=== PATIENT | male | born 1945 | race Caucasian/White ===

== ENCOUNTER 2020-01-30 18:59 | Emergency (ER) | payer MEDICARE ==
[~2020-01-30] VITALS: Ht 175.3 cm; Wt 92.1 kg
--- OUTSIDE RECORDS SUMMARY | ~2020-01-30 | XMS | Encounter Summary ---
Demographics + + + | Address | [address] | | | [place] [address] | + + + | Home Phone | | + + + | Preferred Language | Unknown | + + + | Marital Status | | + + + | Yazidi Affiliation | CHR | + + + | Race | White | + + + | Ethnic Group | Not or | + + + Author + + + | Author | [facility] | + + + | Organization | [facility] | + + + | Address | Unknown | + + + | Phone | Unavailable | + + + Support + + +---------+ + | Name | Relationship | Address | Phone | + + +---------+ + | Caroline Elaine | ECON | Unknown | | + + +---------+ + Care Team Providers + +------+ + | Care Skeiner Name | Role | Phone | + +------+ + | Cole Preston MD | PCP | | + +------+ + Reason for Visit AUTH/CERT +--------+--------+ + + + + | Status | Reason | Specialty | Diagnoses / | Referred By | Referred To | | | | | Procedures | Contact | Contact | +--------+--------+ + + + + | Closed | | Adult Acute | | | Kpv 13[address] | | | | Care | | | Adult Onc | | | | | | | [address] [facility] | | | | | | | | | | | | | | Mailcode: | | | | | | | [id number] | | | | | | | [place] | | | | | | | [place], [place] | | | | | | | [address] | | | | | | | Phone: | | | | | | | [phone] | | | | | | | Fax: | | | | | | | [phone] | +--------+--------+ + + + + Encounter Details +--------+ + + + + | Date | Type | Department | Care Team | Description | +--------+ + + + + | 07/22/ | Hospital | Radiology/Imaging | | | | 2010 | Encounter | Lab at [facility] [address] | | | | | [facility] | | | | [facility], | | | | | | [address] | | | | | | [place], [place] | | | | | | [address] | | | | | | [phone] | | | +--------+ + + + + Social History + +-------+ +--------+------+ | Tobacco Use | Types | Packs/Day | Years | Date | | | | | Used | | + +-------+ +--------+------+ | Never Smoker | | | | | + +-------+ +--------+------+ + + +---------+ + | Alcohol Use | Drinks/Week | oz/Week | Comments | + + +---------+ + | No | | | | + + +---------+ + + + + | Sex Assigned at | Date Recorded | | | | + + + | Not on file | | + + + documented as of this encounter Medications at Time of Discharge + + + +---------+ + + | Medication | Sig | Dispensed | Refills | Start | End Date | | | | | | Date | | + + + +---------+ + + | acetaminophen 325 | Take 1 Tab by mouth | 100 Tab | 0 | 07/28/19 | | | mg Oral | every four hours as | | | 11 | | | TabletIndications: | needed. Indications: | | | | | | fever, pain | Fever, Pain | | | | | + + + +---------+ + + | oxyCODONE, | Take 1-3 Tabs by | 60 Tab | 0 | 07/28/19 | | | immediate release, 5 | mouth every three | | | 11 | | | mg Oral Tablet | hours as needed for | | | | | | | severe pain and | | | | | | | breakthrough pain. | | | | | + + + +---------+ + + documented as of this encounter Plan of Treatment Not on filedocumented as of this encounter Procedures + +--------+ + + + | Procedure Name | Priori | Date/Time | Associated Diagnosis | Comments | | | ty | | | | + +--------+ + + + | X-RAY CHEST 2 VIEW | Routin | 07/22/2010 | Carcinoid tumor of | Results for this | | | e | 3:50 PM | small intestine | procedure are in the | | | | PST | Other specified | results section. | | | | | pre-operative | | | | | | examination | | | | | | Mesenteric | | | | | | lymphadenopathy | | + +--------+ + + + documented in this encounter Results X-RAY CHEST 2 VIEW (07/22/2010 3:50 PM PST) + + + + + + | Component | Value | Ref Range | Performed | Pathologist | | | | | At | Signature | + + + + + + | CHEST, 2 | STUDY:CHEST 2 VIEWS | | | | | VIEWS [place] | 07/22/10 15:50:00 | | | | | STEREO | COMPARISON:No prior | | | | | | INDICATION: Carcinoid | | | | | | syndrome, for metastatic | | | | | | disease FINDINGS:The | | | | | | lungs are clear. The | | | | | | heart, hilar and | | | | | | mediastinal contours | | | | | | arenormal. There are | | | | | | no suspect pulmonary | | | | | | nodules, consolidations, | | | | | | orfindings to suggest | | | | | | thoracic metastatic | | | | | | disease. 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 IMPRESSION: | | | | | | No evidence of thoracic | | | | | | metastatic disease. 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 I have | | | | | | personally viewed this | | | | | | procedure/exam and | | | | | | reviewed this report. | | | | | | Author: HALEY | | | | | | JEROMEReviewer: HALEY | | | | | | JEROME STATUS FINAL / . 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
--- OUTSIDE RECORDS SUMMARY | ~2020-01-30 | XMS | Clinical Summary ---
Demographics + + + | Address | [address] | | | [place] [address] | + + + | Home Phone | | + + + | Preferred Language | Unknown | + + + | Marital Status | | + + + | Christianity Affiliation | CHR | + + + | Race | White | + + + | Ethnic Group | Not or | + + + Author + + + | Author | [facility] | + + + | Organization | [facility] | + + + | Address | Unknown | + + + | Phone | Unavailable | + + + Support + + +---------+ + | Name | Relationship | Address | Phone | + + +---------+ + | Caroline Elaine | ECON | Unknown | | + + +---------+ + Care Team Providers + +------+ + | Care Brewing Technician Name | Role | Phone | + +------+ + | Cole Preston MD | PCP | | + +------+ + Source Comments [facility] Allergies + + + + + + | Active Allergy | Reactions | Severity | Noted | Comments | | | | | Date | | + + + + + + | Morphine Sulfate | Anxiety | Medium | 07/23/19 | | | | | | 11 | | + + + + + + Medications + + + +---------+------+------+-------+ | Medication | Sig | Dispensed | Refills | Star | End | Statu | | | | | | t | Date | s | | | | | | Date | | | + + + +---------+------+------+-------+ | acetaminophen 325 | Take 1 Tab by mouth | 100 Tab | 0 | 03/0 | | Activ | | mg Oral | every four hours as | | | 1/20 | | e | | TabletIndications: | needed. Indications: | | | 11 | | | | fever, pain | Fever, Pain | | | | | | + + + +---------+------+------+-------+ | oxyCODONE, | Take 1-3 Tabs by | 60 Tab | 0 | 03/0 | | Activ | | immediate release, 5 | mouth every three | | | 1/20 | | e | | mg Oral Tablet | hours as needed for | | | 11 | | | | | severe pain and | | | | | | | | breakthrough pain. 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 | + + + Family History + + +------+ + | Medical History | Relation | Name | Comments | + + +------+ + | Heart Disease | Father | | | + + +------+ + | Stroke | Father | | | + + +------+ + | Heart Disease | Mother | | | + + +------+ + | Thyroid | Mother | | | + + +------+ + | Diabetes | Sister | | | + + +------+ + + +------+--------+ + | Relation | Name | Status | Comments | + +------+--------+ + | Father | | | | + +------+--------+ + | Mother | | | | + +------+--------+ + | Sister | | | | + +------+--------+ + Social History + +-------+ +--------+------+ | [...] on file | | + + + Last Filed Vital Signs + + + + + | Vital Sign | Reading | Time Taken | Comments | + + + + + | Blood Pressure | 137/88 | 08/12/2010 2:01 PM | | | | | PDT | | + + + + + | Pulse | 72 | 08/12/2010 2:01 PM | | | | | PDT | | + + + + + | Temperature | 36.7 C (98.1 F) | 08/12/2010 2:01 PM | | | | | PDT | | + + + + + | Respiratory Rate | 18 | 08/12/2010 2:01 PM | | | | | PDT | | + + + + + | Oxygen Saturation | 95% | 07/28/2010 6:27 AM | | | | | PST | | + + + + + | Inhaled Oxygen | - | - | | | Concentration | | | | + + + + + | Weight | 95.8 kg (211 lb 4.8 | 08/12/2010 2:01 PM | | | | oz) | PDT | | + + + + + | Height | 175 cm (5' 8.9") | 07/23/2010 9:39 AM | | | | | PST | | + + + + + | Body Mass Index | 31.3 | 07/23/2010 9:39 AM | | | | | PST | | + + + + + Plan of Treatment + + +-------+ + | Health Maintenance | Due Date | Last | Comments | | | | Done | | + + +-------+ + | Pneumococcal | | | | | vaccination (1 of 2 | 0 | | | | - PCV13) | | | | + + +-------+ + | Influenza (Flu) | | | | | vaccination (Season | 0 | | | | Ended) | | | | + + +-------+ + Results Not on filefrom Last 3 Months Insurance + +--------+ +--------+ + +--------+ | Payer | Benefi | Subscriber | Effect | Phone | Address | Type | | | t Plan | ID | sotero | | | | | | / | | Dates | | | | | | Group | | | | | | + +--------+ +--------+ + +--------+ | MEDICARE | MEDICA | [id number] | 08/28/19 | [phone] | [address] | Medica | | | RE A & | | 10-Pre | 1 | 2 | re | | | B | | sent | | [place] | | | | | | | | [id number] | | + +--------+ +--------+ + +--------+ | [facility] | UNITED | [id number] | 08/28/19 | | | PPO | | | | | 10-Pre | | | | | | HEALTH | | sent | | | | | | CARE | | | | | | + +--------+ +--------+ + +--------+ + +--------+ +--------+ + + | Guarantor Name | Accoun | Relation to | Date | Phone | Billing Address | | | t Type | Patient | of | | | | | | | | | | + +--------+ +--------+ + + | Phi Elaine | Person | Self | [birth year] | [address] | | | al/Fam | | 1946 | [phone] | [place] | | | [place] | | | [address] (Home) | [phone] | + +--------+ +--------+ + + Advance Directives + + + + + | Code Status | Date | Date | Comments | | | Activated | Inactivated | | + + + + + | Full Code | 07/23/2010 | 07/28/2010 | | | | 2:14 PM | 2:32 PM | | + + + + +
--- OUTSIDE RECORDS SUMMARY | ~2020-01-30 | XMS | Encounter Summary ---
Demographics + + + | Address | [address] | | | [place] [address] | + + + | Home Phone | | + + + | Preferred Language | Unknown | + + + | Marital Status | | + + + | Hindu Affiliation | CHR | + + + | Race | White | + + + | Ethnic Group | Not or | + + + Author + + + | Author | [facility] | + + + | Organization | [facility] | + + + | Address | Unknown | + + + | Phone | Unavailable | + + + Support + + +---------+ + | Name | Relationship | Address | Phone | + + +---------+ + | Caroline Elaine | ECON | Unknown | | + + +---------+ + Care Team Providers + +------+ + | Care Crew Boss Name | Role | Phone | + +------+ + | Cole Preston MD | PCP | | + +------+ + Encounter Details +--------+ + + + + | Date | Type | Department | Care Team | Description | +--------+ + + + + | 04/06/ | Hospital | Nuclear Medicine | | | | 2009 | Encounter | at [facility] [address] | | | | | [address] | | | | | | [place], | | | | | | [place], | | | | | | [place] [address] | | | | | | [phone] | | | +--------+ + + + [...] | + +--------+ + + + | NM ISOTOPE | Routin | 04/06/2010 | | Results for this | | ADMINISTRATION ONLY | e | 1:07 PM | | procedure are in the | | | | PST | | results section. | + +--------+ + + + documented in this encounter Results NM ISOTOPE ADMINISTRATION (04/06/2010 1:07 PM PST) + + + + + + | Component | Value | Ref Range | Performed | Pathologist | | | | | At | Signature | + + + + + + | NM ISOTOPE | STUDY: Octreotide Scan | | | | | ADMI | 04/06/2010; | | | | | | COMPARISON: None. | | | | | | HISTORY: Carcinoid | | | | | | syndrome; rule out | | | | | | metastatic disease. | | | | | | TECHNIQUE: The patient | | | | | | was injected with 6.6 | | | | | | millicuries of [id number] | | | | | | octreoscan on | | | | | | 04/06/2010. Four hours | | | | | | after injection, | | | | | | anteriorplanar, | | | | | | posterior planar, and | | | | | | SPECT images of the | | | | | | abdomen wereperformed. | | | | | | At 24 hours, anterior | | | | | | and posterior planar | | | | | | images of thehead, neck, | | | | | | chest, abdomen, and | | | | | | pelvis were performed, | | | | | | followed bySPECT imaging | | | | | | of the chest. FINDINGS: | | | | | | On the four hour | | | | | | images, there is very | | | | | | faint radiotraceravidity | | | | | | corresponding to an | | | | | | area of post-surgical | | | | | | change within asegment | | | | | | of small bowel (likely | | | | | | ileum) in the right | | | | | | lower quadrant.Superior | | | | | | to this region, another | | | | | | area of small bowel | | | | | | post-surgicalchange is | | | | | | noted, with no | | | | | | radiotracer avidity. A | | | | | | soft-tissueattenuation | | | | | | mesenteric mass is | | | | | | present within the right | | | | | | lowerabdominal | | | | | | quadrant, which does not | | | | | | exhibit radiotracer | | | | | | avidity.Normal tracer is | | | | | | present within the | | | | | | kidneys, spleen, and | | | | | | liver. Noabnormal | | | | | | uptake is seen within | | | | | | the head, neck, and | | | | | | chest. IMPRESSION: 1. | | | | | | No evidence for | | | | | | metastatic disease. 2. | | | | | | Faint radiotracer | | | | | | avidity within a loop of | | | | | | small bowel in theright | | | | | | lower abdominal | | | | | | quadrant is likely | | | | | | post-surgical in origin | | | | | | asthe patient is status | | | | | | post small bowel | | | | | | resection within the | | | | | | last 2months (03/10/2010 | | | | | | per EPIC notes). I have | | | | | | personally viewed this | | | | | | procedure/exam and | | | | | | reviewed this report. | | | | | | Author: HAYDE WEEKS, | | | | | | MDReviewer: NICOLE Lanier | | | | | | JR. OLIVA M.D. STATUS | | | | | | FINAL / Dr. NICOLE Lanier | | | | | | DONNA FINAL / | | | | | | NICOLE THOMPSON | | | | | | RESULT MODIFIED / | | | | | | NICOLE THOMPSON | | | | | | PENDING FINAL APPROVAL / | | | | | | Dr. HAYDE BEGUM | | | | | | PRELIMINARY - UNSIGNED | | | | | | / Dr. HAYDE WEEKS | | | | + + + [...] + documented in this encounter Visit Diagnoses Not on filedocumented in this encounter"
--- OUTSIDE RECORDS SUMMARY | ~2020-01-30 | XMS | Encounter Summary ---
Demographics + + + | Address | [address] | | | [place] [address] | + + + | Home Phone | | + + + | Preferred Language | Unknown | + + + | Marital Status | | + + + | Judaism Affiliation | CHR | + + + | Race | White | + + + | Ethnic Group | Not or | + + + Author + + + | Author | [facility] | + + + | Organization | [facility] | + + + | Address | Unknown | + + + | Phone | Unavailable | + + + Support + + +---------+ + | Name | Relationship | Address | Phone | + + +---------+ + | Caroline Elaine | ECON | Unknown | | + + +---------+ + Care Team Providers + +------+ + | Care Control Supervisor Name | Role | Phone | + +------+ + | Cole Preston MD | PCP | | + +------+ + Encounter Details +--------+ + + + + | Date | Type | Department | Care Team | Description | +--------+ + + + + | 07/23/ | Results | Surgical Oncology | Lee Lucio, | | | 2010 | Only | at [facility] [address] | [address] | | | | | [facility] | [place], [place] | | | | | Health and Healing, | [address] | | | | | [address] | [phone] | | | | | [place], [place] | | | | | | [address] | | | | | | [phone] | | | +--------+ + + + [...] | + +--------+ + + + | SURGICAL PATHOLOGY | Routin | 07/23/2010 | | Results for this | | | e | | | procedure are in the | | | | | | results section. 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 (Analyte | | | | | | specific reagents are | | | | | | used in many laboratory | | | | | | tests necessary | | | | | | [facility] | | | | | | and generally do not | | | | | | require FDA approval. | | | | | | This testwas developed | | | | | | and its performance | | | | | | characteristics | | | | | | determined by | | | | | | [facility]. It has | | | | | | not been cleared or | | | | | | approved by the [place]. | | | | | | Food and | | | | | | DrugAdministration.) | | | | | | Case seen by:Wilson | | | | | | Michell Lockwood/Surgical | | | | | | Pathology | | | | | | ResidentChristopher L. 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 | | | | | | Gross | | | | | | Description:Received are | | | | | | 2 specimens fresh in | | | | | | containers labeled with | | | | | | the patient'sname | | | | | | (initials LT) and: | | | | | | A: Mesenteric mass: | | | | | | Received is 1 piece of | | | | | | unoriented, red | | | | | | hemorrhagictissue, | | | | | | measuring 5 x 3.2 x 1.5 | | | | | | cm. There appears to | | | | | | be a protrusion thatis | | | | | | assumed to be the mass, | | | | | | measuring 2 x 1.8 x 0.5 | | | | | | cm. The outer | | | | | | surfaceof the entire | | | | | | specimen is inked black. | | | | | | Sectioning of the | | | | | | presumed massreveals a | | | | | | white soft homogeneous | | | | | | cut surface. The rest | | | | | | of the specimenappears | | | | | | to be normal, fibrofatty | | | | | | tissue. | | | | | | Supervisor Blasting | | | | | | sections aresubmitted. | | | | | | On further sectioning, | | | | | | multiple lymph nodes | | | | | | are found in | | | | | | thefibrofatty tissue. | | | | | | Supervisor Blasting sections | | | | | | are submitted. B: | | | | | | Gallbladder: | | | | | | Received is a | | | | | | gallbladder measuring | | | | | | 9.5 x 3 x 0.6 cm.The | | | | | | duct margin is inked | | | | | | black. The gallbladder | | | | | | is opened to reveal a | | | | | | redhemorrhagic mucosa | | | | | | with extremely thin | | | | | | nickerson, measuring 0.1cm | | | | | | thick in someareas. It | | | | | | is filled with 5 cc or | | | | | | less of red-brown | | | | | | material. No lesionsor | | | | | | stones are seen. | | | | | | Supervisor Blasting | | | | | | sections are submitted. | | | | | | Cassette Index:A: | | | | | | Mesenteric mass:A1, | | | | | | massA2-3, lymph | | | | | | nodesB: | | | | | | Gallbladder:B1AC/marine | | | | | | My electronic | | | | | | signature indicates that | | | | | | I have personally | | | | | | reviewed alldiagnostic | | | | | | slides, the gross and/or | | | | | | microscopic portion of | | | | | | thisreport and | | | | | | formulated the final | | | | | | diagnosis. | | | | | | Rendering Diagnostician: | | | | | | Sabino Mayer | | | | | | Corless | | | | | | Michell,Ph.D.PathologistEle | | | | | | ctronically Signed | | | | | | 07/31/2010 3:40PM | | | | + + + + + + + + | Specimen | + + | | + + + + + + + | Performing | Address | City/State/Zipcode | Phone Number | | Organization | | | | + + + + + | [facility] | [address] | [place] [address] | | | PATHOLOGY | [address] | | | + + + + + documented in this encounter Visit Diagnoses Not on filedocumented in this encounter"
--- OUTSIDE RECORDS SUMMARY | ~2020-01-30 | XMS | Encounter Summary ---
Demographics + + + | Address | [address] | | | [place] [address] | + + + | Home Phone | | + + + | Preferred Language | Unknown | + + + | Marital Status | | + + + | Jainism Affiliation | CHR | + + + | Race | White | + + + | Ethnic Group | Not or | + + + Author + + + | Author | [facility] | + + + | Organization | [facility] | + + + | Address | Unknown | + + + | Phone | Unavailable | + + + Support + + +---------+ + | Name | Relationship | Address | Phone | + + +---------+ + | Caroline Elaine | ECON | Unknown | | + + +---------+ + Care Team Providers + +------+ + | Care Cut Press Operator Name | Role | Phone | + +------+ + | Cole Preston MD | PCP | | + +------+ + Reason for Visit + +--------+ + | Reason | Onset | Comments | | | Date | | + +--------+ + | Letter Encounter To | 04/12/ | | | Patient | 2009 | | + +--------+ + Encounter Details +--------+ + + + + | Date | Type | Department | Care Team | Description | +--------+ + + + + | 04/12/ | Telephone | Surgical Oncology | Lee Lucio, | Letter Encounter To | | 2009 | | at [facility] [address] | MD [address] | Patient | | | | [address] [facility] for | [place], [place] | | | | | Health and Healing, | [address] | | | | | [address] | [phone] | | | | | [place], [place] | | | | | | [address] | | | | | | [phone] | | | +--------+ + + + [...] + + documented as of this encounter Miscellaneous Notes Telephone Encounter - Saundra Mariano RN - 04/12/2010 4:[address] Lucio re dental work printed and mailed to patient. Results of octreoscan and CGA reviewed. Patient to return in 07/09 for preop and surgery. Confirmed no aspirin or blood thinners for 1 week p rior to surgery. Time spent 5 minutes. Electronically signed by Saundra Mariano RN at 2009 4:05 PM PSTdocumented in this encounter Plan of Treatment Not on filedocumented as of this encounter Visit Diagnoses Not on filedocumented in this encounter"
--- OUTSIDE RECORDS SUMMARY | ~2020-01-30 | XMS | Encounter Summary ---
Demographics + + + | Address | [address] | | | [place] [address] | + + + | Home Phone | | + + + | Preferred Language | Unknown | + + + | Marital Status | | + + + | Jew Affiliation | CHR | + + + | Race | White | + + + | Ethnic Group | Not or | + + + Author + + + | Author | [facility] | + + + | Organization | [facility] | + + + | Address | Unknown | + + + | Phone | Unavailable | + + + Support + + +---------+ + | Name | Relationship | Address | Phone | + + +---------+ + | Caroline Elaine | ECON | Unknown | | + + +---------+ + Care Team Providers + +------+ + | Care Video Production Assistant Name | Role | Phone | + +------+ + | Cole Preston MD | PCP | | + +------+ + Reason for Referral PROC - Inpatient Surgery (Routine) +--------+--------+ + + + + | Status | Reason | Specialty | Diagnoses / | Referred By | Referred To | | | | | Procedures | Contact | Contact | +--------+--------+ + + + + | Closed | | Surgical | Diagnoses | Pommier, | Sro Surg | | | | Oncology | Carcinoid | MD John | Onc [facility] | | | | | tumor of | [address] | [address] | | | | | small | Ave | Ave Center | | | | | intestine | [facility] [place] | for Health | | | | | Other | [address] | and Healing, | | | | | specified | Phone: | Building [address] | | | | | pre-operativ | [phone] | [facility] [place] | | | | | e | Fax: | [phone] | | | | | examination | [phone] | Phone: | | | | | Procedures | | [phone] | | | | | REQUEST TO | | Fax: | | | | | SURGERY | | [phone] | | | | | HAND TAPPER | | | | | | | OR RESECT | | | | | | | SMALL | | | | | | | INTEST,SINGL | | | | | | | RESEC/ANAS | | | | | | | OR EXCISION | | | | | | | OF | | | | | | | MESENTERY | | | | | | | LESION OR | | | | | | | REMOVAL | | | | | | | GALLBLADDER | | | +--------+--------+ + + + + Diagnostic Testing (Routine) +--------+--------+ + + + + | Status | Reason | Specialty | Diagnoses / | Referred By | Referred To | | | | | Procedures | Contact | Contact | +--------+--------+ + + + + | Closed | | Radiology | Diagnoses | Pommier, | Rad Nuc Med | | | | | Carcinoid | MD John | [address] | | | | | tumor of | [address] | Pav[address] | | | | | small | Ave | [address] | | | | | intestine | [place], [place] | [place], | | | | | Procedures | [address] | Basement | | | | | NM TUMOR | Phone: | [place], [place] | | | | | LOCALIZATION | [phone] | [address] | | | | | WHOLE BODY | Fax: | Phone: | | | | | MULTIPLE | [phone] | [phone] | | | | | DAYS | | Fax: | | | | | | | [phone] | +--------+--------+ + + + + Diagnostic Testing (Routine) +--------+--------+ + + + + | Status | Reason | Specialty | Diagnoses / | Referred By | Referred To | | | | | Procedures | Contact | Contact | +--------+--------+ + + + + | Closed | | Radiology | Diagnoses | Pomcornell, | Rad Nuc Med | | | | | Carcinoid | MD John | [address] | | | | | tumor of | [address] | [address] | | | | | small | Ave | [address] | | | | | intestine | [place], [place] | [place], | | | | | Procedures | [address] | Basement | | | | | NM TUMOR | Phone: | [place], [place] | | | | | LOCALIZATION | [phone] | [address] | | | | | SPECT CHEST | Fax: | Phone: | | | | | | [phone] | [phone] | | | | | | | Fax: | | | | | | | [phone] | +--------+--------+ + + + + Diagnostic Testing (Routine) +--------+--------+ + + + + | Status | Reason | Specialty | Diagnoses / | Referred By | Referred To | | | | | Procedures | Contact | Contact | +--------+--------+ + + + + | Closed | | Radiology | Diagnoses | Pommier, | Rad Nuc Med | | | | | Carcinoid | MD John | [facility] [address] | | | | | tumor of | [address] | [address] | | | | | small | Ave | [address] | | | | | intestine | [place], [place] | [place], | | | | | Procedures | [address] | Basement | | | | | NM TUMOR | Phone: | [place], [place] | | | | | LOCALIZATION | [phone] | [address] | | | | | SPECT | Fax: | Phone: | | | | | ABDOMEN | [phone] | [phone] | | | | | | | Fax: | | | | | | | [phone] | +--------+--------+ + + + + Reason for Visit Consultation (Routine) +--------+--------+ + + + + | Status | Reason | Specialty | Diagnoses / | Referred By | Referred To | | | | | Procedures | Contact | Contact | +--------+--------+ + + + + | Closed | | Surgical | Diagnoses | Cassidy, | Khadijah, | | | | Oncology | carcinoid | Vivek Hitchcock MD | MD John | | | | | of small | [place] | [address] | | | | | bowel | SURGICAL | Ave | | | | | | [facility] | [place], [place] | | | | | | [address] | [address] | | | | | | AVE | Phone: | | | | | | [place], | [phone] | | | | | | [place] [address] | Fax: | | | | | | Phone: | [phone] | | | | | | [phone] | | | | | | | Fax: | | | | | | | [phone] | | +--------+--------+ + + + + Encounter Details +--------+---------+ + + + | Date | Type | Department | Care Team | Description | +--------+---------+ + + + | 03/29/ | Office | Surgical Oncology | John Lucio, | 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 | Visit | at [facility] [address] | MD [address] | small intestine | | | | Ave Center for | [place], [place] | (Primary Dx); Other | | | | Health and Healing, | [address] | specified | | | | Building [address] | [phone] | pre-operative | | | | [place], [place] | | examination | | | | [address] | | | | | | [phone] | | | +--------+---------+ + + + Social History + +-------+ [...] + + documented as of this encounter Last Filed Vital Signs + + + + + | Vital Sign | Reading | Time Taken | Comments | + + + + + | Blood Pressure | 126/73 | 03/29/2010 11:06 AM | | | | | PDT | | + + + + + | Pulse | 72 | 03/29/2010 11:06 AM | | | | | PDT | | + + + + + | Temperature | 36.8 C (98.2 F) | 03/29/2010 11:06 AM | | | | | PDT | | + + + + + | Respiratory Rate | 17 | 03/29/2010 11:06 AM | | | | | PDT | | + + + + + | Oxygen Saturation | - | - | | + + + + + | Inhaled Oxygen | - | - | | | Concentration | | | | + + + + + | Weight | 95 kg (209 lb 6.4 | 03/29/2010 11:06 AM | | | | oz) | PDT | | + + + + + | Height | 182.9 cm (6') | 03/29/2010 11:06 AM | | | | | PDT | | + + + + + | Body Mass Index | 28.4 | 03/29/2010 11:06 AM | | | | | PDT | | + + + + + documented in this encounter Patient Instructions Patient Instructions Saundra Mariano RN - 03/29/2010 12:48 PM PDTNO ASPIRIN OR BLOOD THINN ERS FOR 1 WEEK PRIOR TO SURGERY.Registration Locations (please check in at one of the follow ing registration desks prior to surgery) For surgeries scheduled [place] take place [place] the [facility]: Surgeries scheduled in the [facility] ( [facility]): registration is located on the 4th floor of [facility] (Day Surgery). Surgeries scheduled in the [facility]: registration is located on the 9th floor. Surgeries scheduled in [facility]: registration is located on the 6th floor. Surgeries scheduled in the [facility]: registration is located i n the [facility] on the first floor. For surgeries scheduled to take place at the [facility]: registration is l ocated on the 4th floor (Surgery Center). Important Information Due to the increased prevalence of pests in our community, we are asking patients to partne r with us to keep our hospital clean. If you have noticed bugs or other pests in your home, on your belongings or on your body, please contact your doctor's office prior to your admis osvaldo. For your safety and protection, please limit what you bring to the hospital. All valuables should be left at home. This includes pillows, blankets, clothing, purses, wallets, money an d jewelry. Patients may not bring personal electronics into the hospital, including hairdry ers, electric angel, radios and CD players. If you use specialized medical equipment at [facility], please check with your provider before bringing it with you into the hospital. Registration Process for all Admissions/Surgeries 1. Please bring your insurance card(s) with you and be prepared to pay any co-payment, co-i nsurance or deposit that may be required. 2. Once you arrive at the registration desk, you will be interviewed by a Patient Access Se rvice Specialist (PAS). Demographics will be verified (example: name, date of , Social Security Number, address, insurance). 3. You will be asked to sign some paperwork: Terms and Conditions of Service, Notice of Trisha vacy Practices Acknowledgement and Genetic Testing Opt Out. You will be given some paperwork: copies of any forms signed by you, Patient Rights, Respon sibilities and Safety, Understanding Advance Directives, and Smoking Cessation Brochure.Elec tronically signed by Saundra Mariano RN at 03/29/2010 12:48 PM PDT documented in this encounter Progress Notes John Lucio MD - 03/29/2010 1:44 PM PDTFormatting of this note might be different fro m the original. CARCINOID OUTPATIENT CONSULTATION 03/29/2010 Consulting Physician: JOHN LUCIO MD Referring Physician: Vivek Benjamin MD HPI: Phi Elaine is a 64 y.o. male is here for a Carcinoid Clinic consultation. He pr esented with abdominal pain in [facility] in early February. Prior to that, he did not have in termittent abdominal pain, flushing, or diarrhea. He had once complained a red nose and was diagnosed with rosacea, which interestingly enough is a common misdiagnosis of carcinoid flu shing. CT scan showed a mesenteric mass in the RLQ. He was explored by Dr. Vivek Benjamin in [facility] [place] on 03/10/2010. The findings were a small bowel tumor in the terminal ileum, con sistent with a small bowel carcinoid and desmoplastic reaction around the mesenteric mass. T he mass proved larger than thought based on the CT scan. Dr. Benjamin was quite concerned about the encroachment of the mass to the SMA and SMV and elected not to resect it. He did do a s mall bowel resection. Apparently, no liver metastases were seen. The gallbladder was not rem hayde. He did not have any known carcinoid crises with the anesthetic or the post operative p eriod. He also denies any problems with asthma, arthritis components of carcinoid syndrome. He also denies SOB, edema, etc, suggestive of carcinoid heart disease. He improved after the operation. 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 He has since been referred here for further evaluation and treatment. PAST MEDICAL HISTORY: Patient denies history of diabetes, asthma, hypertension, or other di seases. Past Medical History Diagnosis Date History of colonoscopy 06/30/09, 2000 Diverticulosis 02/2001 Blood transfusion, without reported diagnosis PAST SURGICAL HISTORY: Patient denies. Past Surgical History Procedure Date Cataract removal 1995, 1997 Dr. Bazzi, Dr. Benson Humphrey Repair facial bone 01/1997 Dr. Meek Carter Appendectomy Tonsil and adenoidectomy Vasectomy MEDICATIONS: denies Current outpatient prescriptions Medication Sig Hydrocodone-Acetaminophen 5-500 mg Oral Capsule Take 2 Caps by mouth once daily. Not to exceed 8 capsules per any 24 hour period. (Not to exceed 4000 mg of acetaminophen from all products per 24 hour period.) SOCIAL HISTORY: Tobacco use: no Alcohol use: no Drug use: denies /single: Employment: Retired telephone engineer. FAMILY HISTORY: No Family History of MEN I or carcinoid. Family History Problem Relation Age of Onset Diabetes Sister Heart Mother Heart Father Stroke Father Thyroid Mother REVIEW OF SYSTEMS: A 14-point review of systems intake form was filled out by the patient a nd reviewed with the patient. ROS was significant for: ROS was negative for all other symptoms: Review of Systems: General: No constitutional symptoms of fevers, fatigue, chills, weight loss or sweats. Eyes: No changes in vision loss, double vision, eye pain, eye irritation, discharge, blurr ed vision or light sensitivity. Ears, Nose and Throat: No hearing loss, ringing in the ears, ear discharge, earache, noseb nito, nasal congestion, difficulty swallowing, hoarseness or sore throat. Respiratory: No shortness of breath, coughing up blood, excessive sputum, cough, chest dis comfort or wheezing. Musculoskeletal: No joint pain, swelling, stiffness, back pain, arthritis, muscle aches, m uscle cramps or loss of strength. Cardiovascular: No chest pain, skipping beats, lightheadedness, difficulty breathing uprig ht or lying down, fatigue, near fainting or fainting, palpitations, weight gain, edema, leg cramps. Gastrointestinal: No loss of appetite, excessive appetite, indigestion, vomiting, nausea, constipation, gas, abdominal pain, hemorrhoids, diarrhea, bloating, bloody stools or dark ta rry stools. Genitourinary: No urinary frequency, blood in urine, difficulty in urination, discharge, p ainful urination, incontinence, urinary urgency, genital sores. Neurologic: No unusual headaches, inability to speak, poor balance, numbness, tingling, tr emors, memory loss, disturbances in coordination or sensation of room spinning. Skin: No itching, rash, poor wound healing, night sweats, changes in skin color, dryness, flushing or suspicious lesions. Psychological: No abnormal anxiety, depression, thoughts of suicide or hallucinations. Heme/Lymphatic: No skin discoloration, abnormal bleeding or enlarged lymph nodes. Endrocrine: No heat intolerance, cold intolerance, excessive hunger or excessive thirst. Allergic: No seasonal allergies, hives or rash, persistent infections or HIV exposure. OBJECTIVE Visit Vitals Item Reading BP 126/73 Pulse 72 Temp (Src) 36.8 C (98.2 F) (Oral) RR 17 Ht 1.829 m (6') Wt 94.983 kg (209 lb 6.4 oz) BMI 28.40 kg/(m^2) PHYSICAL EXAM: General: He is a well-developed, well-nourished female in no apparent distress, alert and oriented x3. The patient had no flushing during interview or examination. Head and neck: Normocephalic, atraumatic. Sclerae are anicteric. Neck is soft and supple. No masses. No cervical or clavicular adenopathy. Chest/Lungs: Clear to A and P without carcinoid wheezing and 2 cm diaphragmatic excursions bilaterally. Heart: RRR without S3 or murmur suggestive of carcinoid heart disease. Abdomen: Midline incision, essentially from sub-xiphoid to Soft, nontender, and nondistende d. No visible masses. Liver percusses 6 cm in the R MCL. The liver is not palpable. The sple en is not palpable. There is no Sr. Sylvia Nadeem's nodule. There are no palpable abdominal ma sses. There is no inguinal lymphadenopathy. Extremities: No cyanosis, clubbing, or edema. Skin:No rash or pellagra. Pathology: Report was reviewed. The results are as described above. CT scan: Was not here for review. It is still en route. The report indicates a mesenteric m ass measuring 40.5 cm in the RLQ at the level of the iliac crest, just to the right of midli ne.. It does not mention encasement or concerning proximity to the SMA or SMV. 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 There does not appear to be any liver metastases or carcinoid synd carroll. I spent 1 hour discussing neuroendocrine tumors/carcinoid with the patient and his . I explained that many patients present with metastatic disease, CT scans etc to find the prima ry do not find it, but instead find large mesenteric adenopathy, frequently in the root of t he mesentery, encasing the SMA and SMV. The primary is usually found only at operation, jarek sandoval finds it about 80% of the time and they are quite small. He is unusual in that he does not appear to have liver metastases. Therefore, he appears to still be "in the running" for having a curative R0 resection. If t hat cannot be done, he should have an attempt at resecting as much of the disease as possibl e to prevent subsequent encasement of the SMA and SMV, resulting in intestinal angina, ische inna bowel or bowel obstruction. This is complicated surgery. It requires a fairly intimate k nowledge of the anatomy of the mesenteric vessels. Specifically, there are separate sub-bran ches arising trunks of these vessels; one of which is ileal and the other of which is jejuna l. One of the two may be taken to achieve the resection, but not both. Further bowel resecti on may or may not be required in conjunction with the mesenteric resection. Some patients wi ll require a second look laparotomy at 24 hours to evaluate the viability of the bowel after the resection. However, the recommendation for this could be would depend upon whether he has metastatic d isease to the liver, or elsewhere. Then, I would focus more on liver resection than mesenter ic resection, unless he could also have a complete resection of all liver metastases. An oct reoscan will help determine his extent of disease. It will also help determine his eventual eligibility for treatment with radiolabelled somatostatin analogs. For him to qualify for at, he has to have uptake on an octreoscan. I will also obtain a serum chromogranin A level. Chromogranin A is a better marker to follow than 5HIAA as it correlates with the volume of disease present in the patient, it gives a picture of the behavior of the tumor over the pre vious several months rather than just the previous 24 hours. Also, it's serum levels rise in advance of radiologic evidence of progression in more than 50% of cases. I will obtain a l evel now, before his resection, and then check it again after the resection. The patient lalit uld have an octreoscan to evaluate the entire body for presence of metastatic disease as wel l as the possibility of finding primary tumors. Lastly, I would also do a cholecystectomy du ring any abdominal operation in a carcinoid patient because long-term somatostatin analogue therapy has a side effect of causing gallstones that may become symptomatic, and he may even tually need that therapy. However, I would not operate right now. His abdomen will be forming adhesions for the next month or so, and the risk of enterotomy on trying to get back in his abdomen will be high. T hat, with the possibility of ischemic bowel after the mesenteric resection, is a bad combina tion for leaks. Therefore, I would wait about 3 months before operating, which is quite safe with carcinoid. Plan: Serum Chromogranin A level today. Octreoscan. I gave him a tentative date for surgery of July 23, with a preoperative visit the day b ef. The patient was given a carcinoid CD-ROM that we have prepared for carcinoid patient educat ion. JOHN LUCIO MD corporate compliance manager Division of Surgical Oncology [id number], [place] [address] documented in this en counter Procedure Notes Other, Faculty - 03/05/2010 12:00 AM PDTAssociated Order(s): RADIOLOGY documented in this encou nter Miscellaneous Notes Scan - Other, Faculty - 03/29/2010 12:51 PM PDT can - Unknown - 010 12:00 AM PDT Scan - Unknown - 03/29/2010 12:00 AM PDT Scan - Other, Faculty - 03/25/2010 12:00 AM PDT can - Other, Faculty - 03/10/2010 12:00 AM PDT can - Other, Faculty - 03/10/2010 12:00 AM PDTAssociated Order(s): PATHOLOGY can - Other, Faculty - 03/08/2010 12:00 AM PDT can - Other, Faculty - 03/05/2010 12:00 AM PDT documented in this encou nter Plan of Treatment Not on filedocumented as of this encounter Procedures + +--------+ + + + | Procedure Name | Priori | Date/Time | Associated Diagnosis | Comments | | | ty | | | | + +--------+ + + + | PATHOLOGY | | 03/10/2010 | | Results for this | | | | 12:00 AM | | procedure are in the | | | | PDT | | results section. | + +--------+ + + + | RADIOLOGY | | 03/05/2010 | | Results for this | | | | 12:00 AM | | procedure are in the | | | | PDT | | results section. | + +--------+ + + + documented in this encounter Results NM TUMOR LOCALIZATION SPECT CHEST (04/07/2010 9:58 AM PST) + + + + + + | Component | Value | Ref Range | Performed | Pathologist | | | | | At | Signature | + + + + + + | NM TUMOR | STUDY: Octreotide Scan | | | | | LOCAL SPECT | 04/06/2010; | | | | | CHEST | COMPARISON: None. | | | | | | HISTORY: Carcinoid | | | | | | syndrome; rule out | | | | | | metastatic disease. | | | | | | TECHNIQUE: The patient | | | | | | was injected with 6.6 | | | | | | millicuries of | | | | | | octreoscan [...] WEEKS, | | | | | | Shabnamiewer: NICOLE Lanier | | | | | | JR. OLIVA M.D. STATUS | | | | | | FINAL / Dr. NICOLE Lanier | | | | | | [facility] | | | | + + + + + + + + | Specimen | + + | | + + + +---------+ + + | Performing | Address | City/State/Zipcode | Phone Number | | Organization | | | | + +---------+ + + | [facility] DEPARTMENT OF | | | | | RADIOLOGY | | | | + +---------+ + + NM TUMOR LOCALIZATION SPECT ABDOMEN (04/06/2010 2:27 PM PST) + + + + + + | Component | Value | Ref Range | Performed | Pathologist | | | | | At | Signature | + + + + + + | NM TUMOR | STUDY: Octreotide Scan | | | | | LOCAL SPECT | 04/06/2010; | | | | | ABDOMEN | COMPARISON: None. | | | | | | HISTORY: Carcinoid | | | | | | syndrome; rule out | | | | | | metastatic disease. | | | | | | TECHNIQUE: The patient | | | | | | was injected with 6.6 | | | | | | millicuries of [id number] | | | | | | octreoscan [...] | | | | | | per [facility] notes). I have | | | | [...] | | | + +---------+ + + NM TUMOR LOCALIZATION WHOLE BODY MULTIPLE DAYS (04/06/2010 1:07 PM PST) + + + + + + | Component | Value | Ref Range | Performed | Pathologist | | | | | At | Signature | + + + + + + | NM TUMOR | STUDY: Octreotide Scan | | | | | LOCALIZATIO | 04/06/2010; | | | | | N WHOLE | COMPARISON: None. | | | | | BODY | HISTORY: Carcinoid | | | | | MULTIPLE | syndrome; rule out | | | | | DAYS | metastatic disease. | | | | | | TECHNIQUE: The patient | | | | | | was injected with 6.6 | | | | | | millicuries of | | | | | | octreoscan [...] | | | | | | per [facility] notes). I have | | | | [...] | | | + +---------+ + + CHROMOGRANIN A, SERUM (03/29/2010 1:16 PM PDT) + + + + + + | Component | Value | Ref Range | Performed | Pathologist | | | | | At | Signature | + + + + + + | CHROMOGRANI | < 5Comment: TEST | (<51) ng/mL | | | | N A | INFORMATION: | | | | | | Chromogranin AThis | | | | | | assay is performed using | | | | | | the [employer] | | | | | | DiagnosticsChromogranin | | | | | | A EIA. Results obtained | | | | | | with different | | | | | | assaymethods or kits | | | | | | cannot be used | | | | | | interchangeably. This | | | | | | test uses a kit | | | | | | designated by the | | | | | | screening technician as | | | | | | "forresearch use, not | | | | | | for clinical use." The | | | | | | performancecharacteristi | | | | | | cs of this test were | | | | | | validated by | | | | | | [employer] | | | | | | The U.S. Food and Drug | | | | | | Administration(FDA) has | | | | | | not approved or cleared | | | | | | this test. The | | | | | | resultsare not intended | | | | | | to be used as the sole | | | | | | means for | | | | | | clinicaldiagnosis or | | | | | | patient management | | | | | | decisions. [facility] | | | | | | isauthorized under | | | | | | Clinical Laboratory | | | | | | Improvement | | | | | | Amendments(CLIA) and by | | | | | | all states to perform | | | | | | high-complexity | | | | | | testing.Performed by | | | | | | [facility], | | | | | | | | | | | | [address] | | | | | | [place] [address] | | | | | | [phone] | | | | | | | | | | | | [email or web address], | | | | | | Katherine L. Wilkins, MD - | | | | | | Lab. Director | | | | + + + + + + + + | Specimen | + + | Blood - Blood | + + + + + + + | Performing | Address | City/State/Zipcode | Phone Number | | Organization | | | | + + + + + | [facility] | [address] | [place], [place] | | | [facility] | | [address] | | + + + + + PATHOLOGY (03/10/2010 12:00 AM PDT) + + + | Narrative | Performed At | + + + | | | + + + + + | Procedure Note | + + | Sanam Owens - 03/10/2010 12:00 AM PDT | | | + + RADIOLOGY (03/05/2010 12:00 AM PDT) + + + | Narrative | Performed At | + + + | | | + + + + + | Procedure Note | + + | Sanam Owens - 03/05/2010 12:00 AM PDT | | | + + documented in this encounter Visit Diagnoses + + | Diagnosis | + + | 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
--- OUTSIDE RECORDS SUMMARY | ~2020-01-30 | XMS | Encounter Summary ---
Demographics + + + | Address | [address] | | | [place] [address] | + + + | Home Phone | | + + + | Preferred Language | Unknown | + + + | Marital Status | | + + + | Judaism Affiliation | CHR | + + + | Race | White | + + + | Ethnic Group | Not or | + + + Author + + + | Author | [facility] | + + + | Organization | [facility] | + + + | Address | Unknown | + + + | Phone | Unavailable | + + + Support + + +---------+ + | Name | Relationship | Address | Phone | + + +---------+ + | Caroline Elaine | ECON | Unknown | | + + +---------+ + Care Team Providers + +------+ + | Care Assembly Line Brazer Name | Role | Phone | + +------+ + PCP | Unavailable | + +------+ + Encounter Details +--------+ + + + + | Date | Type | Department | Care Team | Description | +--------+ + + + + | 03/10/ | Hospital | LAB SURGICAL | | | | 2009 | Encounter | PATHOLOGY [address] | | | | [address] | | | | | | [place], [place] | | | | | | [address] | | | +--------+ + + + + Social History + +-------+ +--------+------+ | Tobacco Use | Types | Packs/Day | Years | Date | | | | | Used | | + +-------+ +--------+------+ | Never Assessed | | | | | + +-------+ +--------+------+ + + + | Sex Assigned at [...] + | SURGICAL PATHOLOGY | Routin | 03/10/2010 | | Results for this | | | e | | | procedure are in the | | | | | | results section. | + +--------+ + + + documented in this encounter Results SURGICAL PATHOLOGY (03/10/2010) + + + + + + | Component | Value | Ref Range | Performed | Pathologist | | | | | At | Signature | + + + + + + | SURGICAL | SOURCE OF SPECIMEN:A | | [facility] | | | PATHOLOGY | Small bowel, Ileum, | | DEPARTMENT | | | | Appendix, | | OF | | | | Materials | | PATHOLOGY | | | | Received:Referring | | | | | | Institution: [facility] | | | | | | [facility], | | | | | | [facility] | | | | | | Accession Number: | | | | | | [id number] | | | | | | Collection Date: | | | | | | 03/10/10Sublabel | | | | | | H&E | | | | | | IHC-Special | | | | | | Unstained | | | | | | BlocksA, B, C, | | | | | | 12 10 | | | | | | | | | | | | 0 | | | | | | 0 An | | | | | | additional [place] | | | | | | Pathology report: | | | | | | accession [id number] | | | | | | dated:06/30/09. | | | | | | Final Pathologic | | | | | | Diagnosis:Colon polyps | | | | | | (Brett Toribio | | | | | | Pathology, [id number], | | | | | | 06/30/09):Rectum, | | | | | | excision (sublabeled A): | | | | | | - Hyperplastic | | | | | | polypColon, 55 cm, | | | | | | biopsy (sublabeled B): | | | | | | - Tubulovillous | | | | | | adenoma, excisedHepatic | | | | | | flexure, biopsy | | | | | | (sublabeled C): - | | | | | | Fragments of serrated | | | | | | adenoma Small | | | | | | bowel, ileum, and | | | | | | appendix (Brett Toribio | | | | | | Pathology, | | | | | | [id number],03/10/10):Smal | | | | | | l bowel mesentery | | | | | | adipose tissue, biopsy | | | | | | (sublabeled A1-A2): | | | | | | - 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 | | | | | | carcinomaSegment of | | | | | | ileum, segmental | | | | | | resection (sublabeled | | | | | | B1-B6): - Well | | | | | | differentiated | | | | | | neuroendocrine | | | | | | carcinoma, 2 cm - | | | | | | Tumor invades through | | | | | | the small bowel to the | | | | | | serosal surface - | | | | | | Proximal and distal | | | | | | resection margins | | | | | | negative for tumor | | | | | | - Angiolymphatic | | | | | | invasion identified | | | | | | - AJCC pathologic | | | | | | stage (7th edition): | | | | | | pT4, pNx, F2Ttijoprw, | | | | | | appendectomy (sublabeled | | | | | | C): - Appendix | | | | | | with no diagnostic | | | | | | abnormality | | | | | | Comment: Thank you for | | | | | | the opportunity to | | | | | | review these cases. We | | | | | | agreewith the original | | | | | | pathologic diagnoses. | | | | | | The resection of ileum | | | | | | reveals awell | | | | | | differentiated | | | | | | neuroendocrine carcinoma | | | | | | with invasion through | | | | | | thesmall bowel into the | | | | | | serosa. Per the | | | | | | outside report, a | | | | | | distant mesentericlesion | | | | | | is identified, and | | | | | | histologically consists | | | | | | of a nodule of | | | | | | welldifferentiated | | | | | | neuroendocrine | | | | | | carcinoma, thus | | | | | | designated as M1. | | | | | | Case seen by:[facility] | | | | | | Michell Gomez, | | | | | | Ph.D./Surgical Pathology | | | | | | Letty Miller, | | | | | | M.D., PathologistThese | | | | | | slides will be returned | | | | | | at a later | | | | | | date. 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 My | | | | | | electronic signature | | | | | | indicates that I have | | | | | | personally reviewed | | | | | | alldiagnostic slides, | | | | | | the gross and/or | | | | | | microscopic portion of | | | | | | thisreport and | | | | | | formulated the final | | | | | | diagnosis. | | | | | | Rendering Diagnostician: | | | | | | Melania Miller | | | | | | Levi | | | | | | paris Castellano 03/31/2010 | | | | + + + + + + + + | Specimen | + + | | + + + + + + + | Performing | Address | City/State/Zipcode | Phone Number | | Organization | | | | + + + + + | [facility] | [address] | [place] [address] | | | PATHOLOGY | [address] | | | + + + + + documented in this encounter Visit Diagnoses Not on filedocumented in this encounter"
--- OUTSIDE RECORDS SUMMARY | ~2020-01-30 | XMS | Encounter Summary ---
Demographics + + + | Address | [address] | | | [place] [address] | + + + | Home Phone | | + + + | Preferred Language | Unknown | + + + | Marital Status | | + + + | Scientology Affiliation | CHR | + + + | Race | White | + + + | Ethnic Group | Not or | + + + Author + + + | Author | [facility] | + + + | Organization | [facility] | + + + | Address | Unknown | + + + | Phone | Unavailable | + + + Support + + +---------+ + | Name | Relationship | Address | Phone | + + +---------+ + | Caroline Elaine | ECON | Unknown | | + + +---------+ + Care Team Providers + +------+ + | Care Boat Buffer Plastic Name | Role | Phone | + +------+ + | Cole Preston MD | PCP | | + +------+ + Encounter Details +--------+------+ + + + | Date | Type | Department | Care Team | Description | +--------+------+ + + + | 03/29/ | Lab | Laboratory at [facility] | | 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 | | [address] | | small intestine | | | | [place] [facility] | | | | | | and Healing, | | | | | | [address] | | | | | | [place], [place] | | | | | | [address] | | | | | | [phone] | | | +--------+------+ + + + Social History + +-------+ [...] | + +--------+ + + + | CHROMOGRANIN A, | Routin | 03/29/2010 | Carcinoid tumor of | Results for this | | SERUM | e | 1:16 PM | small intestine | procedure are in the | | | | PDT | | results section. | + +--------+ + + + documented in this encounter Results CHROMOGRANIN A, SERUM (03/29/2010 1:16 PM PDT) [...] the | | | | | | timekeeping supervisor as | | | | | | "forresearch use, not | | | | | | for clinical use." The | | | | | | performancecharacteristi | | | | | | cs of this test were | | | | | | validated by | | | | | | [employer] | | | | | | [...] by | | | | | | [facility], | | | | | | | | | | | | [address] | | | | | | [place] [address] | | | | | | [phone] | | | | | | | | | | | | [email or web address].[employer], | | | | | | Katherine Jones MD - | | | | | | Lab. 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
--- OUTSIDE RECORDS SUMMARY | ~2020-01-30 | XMS | Encounter Summary ---
Demographics + + + | Address | [address] | | | [place] [address] | + + + | Home Phone | | + + + | Preferred Language | Unknown | + + + | Marital Status | | + + + | Congregational Affiliation | CHR | + + + [...] Team Providers + +------+ + | Care Rags Laborer Name | Role | Phone | + +------+ + | Cole Preston MD | PCP | | + +------+ + Encounter Details +--------+ + + + + | Date | Type | Department | Care Team | Description | +--------+ + + + + | 04/06/ | Hospital | Nuclear Medicine | | | | 2009 | Encounter | at [facility] [address] | | | | | [address] | | | | | | [place], | | | | | | [place], | | | | | | [place] [address] | | | | | | [phone] | | | +--------+ + + + [...] + +--------+ + + + | NM TUMOR | Routin | 04/06/2010 | Carcinoid tumor of | Results for this | | LOCALIZATION WHOLE | e | 1:07 PM | small intestine | procedure are in the | | BODY MULTIPLE DAYS | | PST | | results section. | + +--------+ + + + documented in this encounter Results NM TUMOR LOCALIZATION WHOLE BODY MULTIPLE DAYS [...] system | + + documented in this encounter"
--- OUTSIDE RECORDS SUMMARY | ~2020-01-30 | XMS | Encounter Summary ---
Demographics + + + | Address | [address] | | | [place] [address] | + + + | Home Phone | | + + + | Preferred Language | Unknown | + + + | Marital Status | | + + + | Yarsani Affiliation | CHR | + + + | Race | White | + + + | Ethnic Group | Not or | + + + Author + + + | Author | [facility] | + + + | Organization | [facility] | + + + | Address | Unknown | + + + | Phone | Unavailable | + + + Support + + +---------+ + | Name | Relationship | Address | Phone | + + +---------+ + | Caroline Elaine | ECON | Unknown | | + + +---------+ + Care Team Providers + +------+ + | Care Barrel Bung Remover And Dumper Name | Role | Phone | + +------+ + | Cole Preston MD | PCP | | + +------+ + Encounter Details +--------+ + + + + | Date | Type | Department | Care Team | Description | +--------+ + + + + | 04/07/ | Hospital | Nuclear Medicine | | | | 2009 | Encounter | at [facility] [address] | | | | | [address] | | | | | | [place], | | | | | | [place], | | | | | | [place] [address] | | | | | | [phone] | | | +--------+ + + + [...] + | NM TUMOR | Routin | 04/07/2010 | Carcinoid tumor of | Results for this | | LOCALIZATION SPECT | e | 9:58 AM | small intestine | procedure are in the | | CHEST | | PST | | results section. 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
--- OUTSIDE RECORDS SUMMARY | ~2020-01-30 | XMS | Encounter Summary ---
Demographics + + + | Address | [address] | | | [place] [address] | + + + | Home Phone | | + + + | Preferred Language | Unknown | + + + | Marital Status | | + + + | Adventist Affiliation | CHR | + + + | Race | White | + + + | Ethnic Group | Not or | + + + Author + + + | Author | [facility] | + + + | Organization | [facility] | + + + | Address | Unknown | + + + | Phone | Unavailable | + + + Support + + +---------+ + | Name | Relationship | Address | Phone | + + +---------+ + | Caroline Elaine | ECON | Unknown | | + + +---------+ + Care Team Providers + +------+ + | Care System Dispatcher Name | Role | Phone | + +------+ + | Cole Preston MD | PCP | | + +------+ + Reason for Visit +--------+ + | Reason | Comments | +--------+ + | Preop | | +--------+ + AUTH/CERT +--------+--------+ + + + + | [...] | | | | | | [address] | | | | | | | | | | | | | | Mailcode: | | | | | | | [id number] | | | | | | | [place] | | | | | | | [facility] [place] | | | | | | | [address] | | | | | | | Phone: | | | | | | | [phone] | | | | | | | Fax: | | | | | | | [phone] | +--------+--------+ + + + + Encounter Details +--------+---------+ + + + | Date | Type | Department | Care Team | Description | +--------+---------+ + + + | 07/22/ | Office | Preoperative | Tamika Olmstead | Preop examination; | | 2010 | Visit | Medicine Clinic at | T, TALENT ACQUISITION ASSISTANT-C,MPH | Diabetes mellitus | | | | [facility] 4th Floor [address] | | screening; Other | | | | [address] | | specified | | | | Mailcode: [id number] | | pre-operative | | | | [facility] | | examination | | | | and Healing, | | | | | | Building 1,4th Floor | | | | | | [facility] [place] | | | | | | [address] | | | | | | [phone] | | | +--------+---------+ + + + [...] + + + | Blood Pressure | 142/89 | 07/22/2010 2:44 PM | | | | | PST | | + + + + + | Pulse | 84 | 07/22/2010 2:44 PM | | | | | PST | | + + + + + | Temperature | 36 C (96.8 F) | 07/22/2010 2:44 PM | | | | | PST | | + + + + + | Respiratory Rate | 14 | 07/22/2010 2:44 PM | | | | | PST | | + + + + + | Oxygen Saturation | 98% | 07/22/2010 2:44 PM | | | | | PST | | + + + + + | Inhaled Oxygen | - | - | | | Concentration | | | | + + + + + | Weight | 101.2 kg (223 lb) | 07/22/2010 2:44 PM | | | | | PST | | + + + + + | Height | 175.3 cm (5' 9") | 07/22/2010 2:44 PM | | | | | PST | | + + + + + | Body Mass Index | 32.93 | 07/22/2010 2:44 PM | | | | | PST | | + + + + + documented in this encounter Patient Instructions Patient Instructions Tamika Olmstead, GALINA,MPH - 07/22/2010 2:58 PM PSTPREOPERATIVE INSTRUCTIONS Do not eat or drink anything after midnight the night before surgery. TAKE the following medications with a sip of water on the morning of surgery: Hydrocodone-Acetaminophen 5-500 mg Oral Capsule, Take 2 Caps by mouth once daily. Not to ex ceed 8 capsules per any 24 hour period. (Not to exceed 4000 mg of acetaminophen from all pro ducts per 24 hour period.) Prilosec Do NOT take the following medications on the morning of surgery: Do not take any Aspirin, vitamin E or non-steroidal anti-inflammatory (NSAIDs i.e. Advil , Aleve, Ibuprofen) or herbal supplements seven days prior to your surgery. These drugs may interfere with normal blood clotting and may cause excessive bleeding and bruising during or after the surgery. Please see the list below for more products that contain Aspirin, Ibupro fen, or Vitamin E If you are taking Coumadin (warfarin), Plavix or any other blood thinners please let you r surgical team know as medication changes will be necessary. If you need a pain medication for general purposes, use Tylenol as directed. If you are in doubt about any medications that you are taking, please contact our office . AVOID THESE MEDICATIONS FOR 7 DAYS BEFORE SURGERY PRODUCTS CONTAINING ASPIRIN OR NON-STEROIDAL ANTI-INFLAMMATORY DRUGS (NSAIDs) Advil, Aleve, Arti-Bauxite, Anacin, Arthopan, Ascriptin, Aspergum, Aspirin with and without codeine, Janet aspirin. Bufferin, Butalbital, Butazone, Cataflam, Clinoril, Co-Advil, Coges ic, Darvon, Daypro, Diclofenac, Diflunisal, Dipyridamole, Disalcid, Harrison s, Dolene, Dolobi d, Easpirin, Etodolac, Feldene, Fenoprofen, Ibuprofen, Indocin, Indomethacin, Lodine, Meclof enamate, Menadol, Meprobamate/Aspirin, Midol, Motrin and Motrin IB, Nabumetone, Naproxen, No rgesic, Nuprin, Nytol, Nyquil, Orudis, Oruvail, Oxycodone and aspirin, Oxyphenbutazone, Pamp rin, Pepto Bismol, Percodan, Persantine, Phenylbutazone, Piroxicam, Propoxyphene, Relafen, R obomol, Rufen, Sine-aid, Plummer s cold tablets, Sulindac, Talwin, Tolectin, Triaminici n, Trigesic, Voltaren, Zorprin. OTHER PRODUCTS WHICH MAY PROMOTE BLEEDING Vitamin E, Gingko Biloba Important Guidelines Please do not to shave the surgical site at home before the surgery Do not smoke, drink alcohol or use recreational drugs for 24 hours before your surgery Do not eat any hard candy or chew gum after midnight the night before your surgery. Watch for any change in your health condition. Let your surgeon know right away if you do not feel well. Body hygiene: Take a bath or shower and remember to shampoo your hair using your usual hair product before your arrival at the hospital. Body hygiene -- Hibiclens bath/shower bathe or shower the evening before and the mor елена of your surgery. Use the bottle of Hibiclens soap for each cleansing. Wash from yo ur neck to your toes. BE CAREFUL NOT TO WASH YOUR FACE OR HAIR WITH THIS SOLUTION. Shampoo your hair using your usual hair product before your arrival at the hospital. Dental hygiene: Please remember to brush your teeth the night before and the morning of your procedure. Do not wear makeup, perfume, lotions or powder. Remove any nail danish from at least one fingernail. Do not wear any jewelry to the hospital. Wear loose, comfortable clothing. Bring the case and solution for your contact lenses or wear your glasses. Leave all your valuables at home. Allow enough travel time so you re not late for your check in for surgery. Pain management after surgery Following surgery, at regular intervals, your nurse will ask you to rate your pain on a scale of 0-10 (0 is no pain and 10 is the worst pain you can imagine). A variety of pain management strategies may be appropriate, such as intravenous medicati ons, oral medications, peripheral nerve bocks or epidural catheters that can deliver local a nesthetic to cover the area of your surgical incision. Please discuss this with your anesth esiologist to receive additional information about what might be appropriate for you. The goal for pain control therapy is to be comfortable enough to change your position, c ough and take deep breaths. You will be asked to do such activities to help prevent complic ations. Things to do after surgery (hospitalized patients) Use an incentive spirometer or peep breathe to keep your lungs working properly an d to help prevent respiratory complications. It helps you take long, deep breaths. Use it at least once every hour while you are awake. Leg and feet exercises will maintain good circulation and help prevent blood clots in yo ur legs. Sometimes your doctor will order air compression stockings. Compressed air helps the circulation in your legs. Walking and moving will help stimulate normal circulation and deep breathing. After you r surgery, your nurse may ask you to sit, stand or walk. Check in locations Admitting [phone], [facility], [facility] Check-in times for Hospital Admissions are not available until the day prior to surgery. So meone from your surgeon's office or the hospital will contact you with your check in time. I f you do not hear from anyone by 3:00 PM please call your surgeons' office for [id number] . Going Home Your surgeon will decide when you are medically ready to go home. If you are released to go home on the same day as your procedure/surgery please note the following: You will not be competent to drive and will require someone else to transport y ou home on the day of discharge since pain medications and physical activity restrictions li renato your ability to drive safely. It is also required that you have someone assist you and look after you on the first night after you have undergone regional blocks, deep sedation, a nd/or general anesthesia. If you stayed in the hospital after surgery, please arrange for your ride to come for yo u around 9AM on the day your doctor says you can go home. Check out time is 11AM. If you have questions or concerns after you go home, call your doctor s office. If it is after office hours, call the [facility] boom operator at [phone] and ask them to page your doc tor. You will require transportation home on the day of discharge. Pain medications and physi alexander activity restrictions may limit your ability to drive safely. It is also recommended th at you have someone assist you and look after you on the first night after you are released to go home. documented in this encounter Progress Notes Thai Hammonds - 07/22/2010 3:36 PM PSTVenipuncture performed in clinic, blood sample obt ained from Left antecubital site Hemoglobin A1C POCT performed during clinic visit. Blood sa mple obtained from venipuncture performed to obtain other lab tests. Drawn by Bette alvarado and observed by Thai Hammonds amika Olmstead FNP -C,MPH - 07/22/2010 2:48 PM PSTSee Scanned H&P. H and P entered into [employer](Chart review, Media tab). Tamika Olmstead RN, JACOB, MPH PREOPERATIVE MEDICINE CLINIC [facility] Nini Mail Code: [address] [place] [phone] documente d in this encounter Plan of Treatment Not on filedocumented as of this encounter Procedures + +--------+ + + + | Procedure Name | Priori | Date/Time | Associated Diagnosis | Comments | | | ty | | | | + +--------+ + + + | CONFIRMATORY ABO/RH | Routin | 07/23/2010 | | Results for this | | | e | 10:12 AM | | procedure are in the | | | | PST | | results section. | + +--------+ + + + | 12 LEAD ECG | Routin | 07/22/2010 | Other specified | Results for this | | | e | 3:51 PM | pre-operative | procedure are in the | | | | PST | examination | results section. | + +--------+ + + + | WA COLLECTION VENOUS | Routin | 07/22/2010 | Other specified | | | BLOOD,VENIPUNCTURE | e | 3:36 PM | pre-operative | | | | | PST | examination | | + +--------+ + + + | HEMOGLOBIN A1C, POC | Routin | 07/22/2010 | Diabetes mellitus | Results for this | | | e | 3:31 PM | screening | procedure are in the | | | | PST | | results section. | + +--------+ + + + | COMPLETE METABOLIC | Routin | 07/22/2010 | Preop examination | Results for this | | SET | e | 3:00 PM | | procedure are in the | | (NA,K,CL,CO2,BUN,CRE | | PST | | results section. | | AT,GLUC,CA,AST,ALT,B | | | | | | PERFECTO TOTAL,ALK | | | | | | PHOS,ALB,PROT TOTAL) | | | | | + +--------+ + + + | CBC ONLY | Routin | 07/22/2010 | Preop examination | Results for this | | | e | 3:00 PM | | procedure are in the | | | | PST | | results section. | + +--------+ + + + | TYPE AND SCREEN | Routin | 07/22/2010 | Other specified | Results for this | | | e | 3:00 PM | pre-operative | procedure are in the | | | | PST | examination | results section. | + +--------+ + + + documented in this encounter Results CONFIRMATORY ABO/RH (07/23/2010 10:12 AM PST) + + + + + + | Component | Value | Ref Range | Performed | Pathologist | | | | | At | Signature | + + + + + + | ABO GROUP | AB | | [facility] | | | | | | DEPARTMENT | | | | | | OF | | | | | | PATHOLOGY | | + + + + + + | RH TYPE | Positive | | [facility] | | | | | | DEPARTMENT | | | | | | OF | | | | | | PATHOLOGY | | + + + + + + + + | Specimen | + + | | + + + + + + + | Performing | Address | City/State/Zipcode | Phone Number | | Organization | | | | + + + + + | [facility] | [address] | [place] [address] | | | PATHOLOGY | [address] | | | + + + + + 12 LEAD ECG (07/22/2010 3:51 PM PST) + + + + + + | Component | Value | Ref Range | Performed | Pathologist | | | | | At | Signature | + + + + + + | VENTRICULAR | 75 | BPM | [facility] | | | RATE | | | OF | | | | | | CARDIOLOGY | | + + + + + + | ATRIAL RATE | 75 | BPM | [facility] | | | | | | OF | | | | | | CARDIOLOGY | | + + + + + + | P-R | 150 | ms | [facility] | | | INTERVAL | | | OF | | | | | | CARDIOLOGY | | + + + + + + | QRS | 82 | ms | [facility] | | | DURATION | | | OF | | | | | | CARDIOLOGY | | + + + + + + | QT | 384 | ms | [facility] | | | | | | OF | | | | | | CARDIOLOGY | | + + + + + + | QTC | 428 | ms | [facility] | | | | | | OF | | | | | | CARDIOLOGY | | + + + + + + | P AXIS | 19 | degrees | [facility] | | | | | | OF | | | | | | CARDIOLOGY | | + + + + + + | R AXIS | 14 | degrees | [facility] | | | | | | OF | | | | | | CARDIOLOGY | | + + + + + + | T AXIS | 58 | degrees | [facility] | | | | | | OF | | | | | | CARDIOLOGY | | + + + + + + | EKG | Normal sinus | | [facility] | | | DIAGNOSIS | rhythmNormal | | OF | | | | ECGConfirmed by DESMOND | | CARDIOLOGY | | | | KYLE ([id number]) on 07/23/2010 | | | | | | 1:08:57 PM | | | | + + + + + + + + | Specimen | + + | | + + + + + | Narrative | Performed At | + + + | Please click | [facility] OF | | on view image for the detailed interpretation from [employer] results. | CARDIOLOGY | + + + + + + + + | Performing | Address | City/State/Zipcode | Phone Number | | Organization | | | | + + + + + | [facility] | [address] | [place], [place] | | | CARDIOLOGY | [address] | [address] | | + + + + + HEMOGLOBIN A1C, POC (07/22/2010 3:31 PM PST) + +-------+ + + + | Component | Value | Ref Range | Performed | Pathologist | | | | | At | Signature | + +-------+ + + + | HEMOGLOBIN | 5.4 | 4.0 - 5.7 | [facility], | | | A1C,POC | | | POINT OF | | | | | | CARE TESTS | | + +-------+ + + + + + | Specimen | + + | Blood | + + + + + + + | Performing | Address | City/State/Zipcode | Phone Number | | Organization | | | | + + + + + | [facility] | [address] | [place] [address] | | | OF CARE TESTS | | | | + + + + + TYPE AND SCREEN (07/22/2010 3:00 PM PST) + + + + + + | Component | Value | Ref Range | Performed | Pathologist | | | | | At | Signature | + + + + + + | Antibody | Negative | | [facility] | | | Screen | | | DEPARTMENT | | | | | | OF | | | | | | PATHOLOGY | | + + + + + + | ABO GROUP | AB | | [facility] | | | | | | DEPARTMENT | | | | | | OF | | | | | | PATHOLOGY | | + + + + + + | RH TYPE | Positive | | [facility] | | | | | | DEPARTMENT | | | | | | OF | | | | | | PATHOLOGY | | + + + + + + + + | Specimen | + + | Blood - Blood | + + + + + + + | Performing | Address | City/State/Zipcode | Phone Number | | Organization | | | | + + + + + | [facility] | [address] | [place] [address] | | | PATHOLOGY | [address] | | | + + + + + CBC ONLY (07/22/2010 3:00 PM PST) + +-------+ + + + | Component | Value | Ref Range | Performed | Pathologist | | | | | At | Signature | + +-------+ + + + | WHITE CELL | 8.3 | 4.4 - 11.0 K/cu | [facility] | | | COUNT | | mm | DEPARTMENT | | | | | | OF | | | | | | PATHOLOGY | | + +-------+ + + + | RED CELL | 5.31 | 4.50 - 5.90 | [facility] | | | COUNT | | M/cu mm | DEPARTMENT | | | | | | OF | | | | | | PATHOLOGY | | + +-------+ + + + | HEMOGLOBIN | 16.2 | 13.5 - 17.5 | [facility] | | | | | g/dL | DEPARTMENT | | | | | | OF | | | | | | PATHOLOGY | | + +-------+ + + + | HEMATOCRIT | 46.7 | 41.0 - 53.0 % | [facility] | | | | | | DEPARTMENT | | | | | | OF | | | | | | PATHOLOGY | | + +-------+ + + + | MCV | 88.0 | 80.0 - 96.0 fL | [facility] | | | | | | DEPARTMENT | | | | | | OF | | | | | | PATHOLOGY | | + +-------+ + + + | MCHC | 34.6 | 33.4 - 35.5 | [facility] | | | | | g/dL | DEPARTMENT | | | | | | OF | | | | | | PATHOLOGY | | + +-------+ + + + | RDW | 14.4 | 11.5 - 15.0 % | [facility] | | | | | | DEPARTMENT | | | | | | OF | | | | | | PATHOLOGY | | + +-------+ + + + | PLATELET | 219 | 150 - 400 K/cu | [facility] | | | COUNT | | mm | DEPARTMENT | | | | | | OF | | | | | | PATHOLOGY | | + +-------+ + + + + + | Specimen | + + | Blood - Blood | + + + + + + + | Performing | Address | City/State/Zipcode | Phone Number | | Organization | | | | + + + + + | [facility] DEPARTMENT OF | [address] | [place] [address] | | | PATHOLOGY | [address] | | | + + + + + COMPLETE METABOLIC SET (NA,K,CL,CO2,BUN,CREAT,GLUC,CA,AST,ALT,BILI TOTAL,ALK PHOS,ALB,PROT TOTAL) (07/22/2010 3:00 PM PST) + + + + + + | Component | Value | Ref Range | Performed | Pathologist | | | | | At | Signature | + + + + + + | GLUCOSE, | 103 (H) | 60 - 99 mg/dL | [facility] | | | PLASMA | | | DEPARTMENT | | | (LAB) | | | OF | | | | | | PATHOLOGY | | + + + + + + | BUN, PLASMA | 15 | 6 - 20 mg/dL | [facility] | | | (LAB) | | | DEPARTMENT | | | | | | OF | | | | | | PATHOLOGY | | + + + + + + | CREATININE | 1.27 | 0.70 - 1.30 | [facility] | | | PLASMA | | mg/dL | DEPARTMENT | | | (LAB) | | | OF | | | | | | PATHOLOGY | | + + + + + + | TOTAL | 7.4 | 6.1 - 7.9 g/dL | [facility] | | | PROTEIN, | | | DEPARTMENT | | | PLASMA | | | OF | | | (LAB) | | | PATHOLOGY | | + + + + + + | ALBUMIN, | 4.5 | 3.5 - 4.7 g/dL | [facility] | | | PLASMA | | | DEPARTMENT | | | (LAB) | | | OF | | | | | | PATHOLOGY | | + + + + + + | CALCIUM, | 9.9 | 8.6 - 10.2 | [facility] | | | PLASMA | | mg/dL | DEPARTMENT | | | (LAB) | | | OF | | | | | | PATHOLOGY | | + + + + + + | BILIRUBIN | 0.6 | 0.3 - 1.2 mg/dL | [facility] | | | TOTAL | | | DEPARTMENT | | | | | | OF | | | | | | PATHOLOGY | | + + + + + + | ALK PHOS | 98 | 56 - 119 U/L | [facility] | | | | | | DEPARTMENT | | | | | | OF | | | | | | PATHOLOGY | | + + + + + + | AST(SGOT) | 28 | 15 - 41 U/L | [facility] | | | | | | DEPARTMENT | | | | | | OF | | | | | | PATHOLOGY | | + + + + + + | SODIUM, | 141 | 134 - 143 | [facility] | | | PLASMA | | mmol/L | DEPARTMENT | | | (LAB) | | | OF | | | | | | PATHOLOGY | | + + + + + + | POTASSIUM, | 3.6 | 3.4 - 5.0 | [facility] | | | PLASMA | | mmol/L | DEPARTMENT | | | (LAB) | | | OF | | | | | | PATHOLOGY | | + + + + + + | CHLORIDE, | 109 (H) | 97 - 108 mmol/L | [facility] | | | PLASMA | | | DEPARTMENT | | | (LAB) | | | OF | | | | | | PATHOLOGY | | + + + + + + | TOTAL CO2, | 24Comment: New Total | 22 - 29 mmol/L | [facility] | | | PLASMA | CO2 reference range | | DEPARTMENT | | | (LAB) | effective 04/20/10. | | OF | | | | | | PATHOLOGY | | + + + + + + | ALT (SGPT) | 24 | 13 - 48 U/L | [facility] | | | | | | DEPARTMENT | | | | | | OF | | | | | | PATHOLOGY | | + + + + + + | EGFR | > 60 | >60 mL/min | [facility] | | | - | | | DEPARTMENT | | | DANISH | | | OF | | | | | | PATHOLOGY | | + + + + + + | EGFR NON | 57 (L)Comment: GFR is | >60 mL/min | [facility] | | | -VANDANA | estimated using the MDRD | | DEPARTMENT | | | RICAN | equation recommended by | | OF | | | | theNational Kidney | | PATHOLOGY | | | | Disease Education | | | | | | Program. Estimated GFR | | | | | | Interpretive | | | | | | Information: <60 | | | | | | mL/min/1.73 sq m | | | | | | Chronic Kidney Disease | | | | | | <15 mL/min/1.73 sq m | | | | | | Kidney Failure | | | | | | Estimated GFR greater | | | | | | than 60mL/min/1.73 is of | | | | | | limited clinical Value. | | | | | | The MDRD equation is | | | | | | not valid in the | | | | | | following situations: - | | | | | | Patients under 18 years | | | | | | of age - Severe | | | | | | malnutrition or obesity | | | | | | - Vegetarian diet - | | | | | | Rapidly changing kidney | | | | | | function | | | | + + + + + + | ANION GAP | 8 | 4 - 11 mmol/L | [facility] | | | | | | DEPARTMENT | | | | | | OF | | | | | | PATHOLOGY | | + + + + + + | ANION | 6 | 4 - 11 mmol/L | [facility] | | | GAP(ALB | | | DEPARTMENT | | | CORRECTED) | | | OF | | | | | | PATHOLOGY | | + + + + + + + + | Specimen | + + | Blood - Blood | + + + + + + + | Performing | Address | City/State/Zipcode | Phone Number | | Organization | | | | + + + + + | [facility] | [address] | [place] [address] | | | PATHOLOGY | [address] | | | + + + + + documented in this encounter Visit Diagnoses + + | Diagnosis | + + | Preop examination Preoperative examination, unspecified | + + | Diabetes mellitus screening Screening for diabetes mellitus | + + | Other specified pre-operative examination | + + documented in this encounter
--- OUTSIDE RECORDS SUMMARY | ~2020-01-30 | XMS | Encounter Summary ---
Demographics + + + | Address | [address] | | | [place] [address] | + + + | Home Phone | | + + + | Preferred Language | Unknown | + + + | Marital Status | | + + + | Gnosticism Affiliation | CHR | + + + | Race | White | + + + | Ethnic Group | Not or | + + + Author + + + | Author | [facility] | + + + | Organization | [facility] | + + + | Address | Unknown | + + + | Phone | Unavailable | + + + Support + + +---------+ + | Name | Relationship | Address | Phone | + + +---------+ + | Caroline Elaine | ECON | Unknown | | + + +---------+ + Care Team Providers + +------+ + | Care Material Handling Equipment Stevedore Name | Role | Phone | + +------+ + | Cole Preston MD | PCP | | + +------+ + Reason for Visit PROC - Inpatient Surgery (Routine) +--------+--------+ + [...] | | | | | intestine | [facility] [place] | for Health | | | | | Other | [address] | and Healing, | | | | | specified | Phone: | [address] | | | | | pre-operativ | [phone] | [facility] [place] | | | | | e | Fax: | [address] | | | | | examination | [phone] | Phone: | | | | | Procedures | | [phone] | | | | | REQUEST TO | | Fax: | | | | | SURGERY | | [phone] | | | | | LOOM FIXER HELPER | | | | | | | ME RESECT | | | | | | | SMALL | | | | | | | INTEST,SINGL | | | | | | | RESEC/ANAS | | | | | | | ME EXCISION | | | | | | | OF | | | | | | | MESENTERY | | | | | | | LESION ME | | | | | | | REMOVAL | | | | | | | GALLBLADDER | | | +--------+--------+ + + + + Encounter Details +--------+---------+ + + + | Date | Type | Department | Care Team | Description | +--------+---------+ + + + | 08/12/ | Office | Surgical Oncology | John Lucio, | Mesenteric | | 2010 | Visit | - Breast Clinic | [address] | lymphadenopathy; | | | | [address] | [place], [place] | 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[facility] | [address]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 I reviewed the resident s note and agree with the documented findings and plan of care. He is now resected completely free of disease. I would let him follow up with his PCP. I wo uld recommend an annual Chromogranin A determination. I would only scan him if he develops n ew symptoms or there is a magnitude change in his JOHN LUCIO MD microsoft access developer Division of Surgical Oncology [id number] [place], [place] [address] Juliet Mohr MD - 08/12/2010 1:52 PM PDT . GOLD SURGERY PROGRESS NOTE Author: Starr Oconnor MD Attending Physician: Cheryle Lucio MD 08/12/2010 POD#20 Exploratory laparotomy. Complex resection of mesenteric juliano mass. Open cholecyst ectomy. Intraoperative ultrasonography of the liver. Subjective: Patient reports "manpreet" pain at MLI, itching with ventral hair regrowth. Reports occasio nal liquid BM, is consuming high frequency of fruit and fruit juices. Medications: Current Inpatient Medications Medication acetaminophen 325 mg Oral Tablet docusate sodium 100 mg Oral Capsule oxyCODONE, immediate release, 5 mg Oral Tablet Objective: VS: Appear normal BW = 95.8 kg Physical Exam: General: Alert, Appropriate, NAD Neuro: Nonfocal Respiratory: CTA bilaterally Cardiovascular: RRR Abdomen: S, NTND, MLI healing well, No erythema, edema, induration Extremities: No C/C/E Assessment and Plan: Phi Elaine is a 64 y.o. male who is on POD # 20 Exploratory laparotomy. Complex res ection of mesenteric juliano mass. Open cholecystectomy. Intraoperative ultrasonography of th e liver. 1) Patient skin clips removed. 2) Pathology report discussed with patient. 2) Yearly follow up with Chrom. A level discussed with patient 3) S/Sx for which he should seek medical attention discussed 4) RTC prn. The patient was seen and examined with Dr. Lucio. Additional per Dr. 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
--- OUTSIDE RECORDS SUMMARY | ~2020-01-30 | XMS | Encounter Summary ---
Demographics + + + | Address | [address] | | | [place] [address] | + + + | Home Phone | | + + + | Preferred Language | Unknown | + + + | Marital Status | | + + + | Synagogue Affiliation | CHR | + + + | Race | White | + + + | Ethnic Group | Not or | + + + Author + + + | Author | [facility] | + + + | Organization | [facility] | + + + | Address | Unknown | + + + | Phone | Unavailable | + + + Support + + +---------+ + | Name | Relationship | Address | Phone | + + +---------+ + | Caroline Elaine | ECON | Unknown | | + + +---------+ + Care Team Providers + +------+ + | Care Architecture Faculty Member Name | Role | Phone | + +------+ + | Cole Preston MD | PCP | | + +------+ + Encounter Details +--------+ + + + + | Date | Type | Department | Care Team | Description | +--------+ + + + + | 03/29/ | Audio Visual Coordinator | Surgical Oncology | Lee Lcuio, | 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 | | at [facility] [address] | [address] | small intestine | | | | [facility] | [place], [place] | (Primary Dx) | | | | [facility] and He[facility], | [address] | | | | | [address] | [phone] | | | | | [place], [place] | | | | | | [address] | | | | | | [phone] | | | +--------+ + + + [...] this encounter Miscellaneous Notes Telephone Encounter - Suandra Mariano RN - 03/29/2010 9:55 AM [place] [facility] [id number], [id number], small bowel carcinoid sent to surg path. Time spent 5 minutes. 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
--- OUTSIDE RECORDS SUMMARY | ~2020-01-30 | XMS | Encounter Summary ---
Demographics + + + | Address | [address] | | | [place] [address] | + + + | Home Phone [...] Team Providers + +------+ + | Care Hot Dip Plater Name | Role | Phone | + +------+ + | Cole Preston MD | PCP | | + +------+ + Encounter Details +--------+ + + + + | Date | Type | Department | Care Team | Description | +--------+ + + + + | 10/11/ | Documentati | Health Information | Other, Faculty | | | 2019 | on | Services [address] | [phone] | | | | | [address] | | | | | | Mailcode: [id number] | | | | | | [facility] | | | | | | [place], [place] | | | | | | [address] | | | | | | [phone] | | | +--------+ + + + [...] this encounter Miscellaneous Notes Telephone Encounter - Cecille Pradhan - 10/11/2018 12:05 PM PDTDocumentation for CareEverywh ere access. documented in th is encounter Plan of Treatment Not on filedocumented as of this encounter Visit Diagnoses Not on filedocumented in this encounter"
--- OUTSIDE RECORDS SUMMARY | ~2020-01-30 | XMS | Encounter Summary ---
Demographics + + + | Address | [address] | | | [place] [address] | + + + | Home Phone | | + + + | Preferred Language | Unknown | + + + | Marital Status | | + + + | Christian Affiliation | CHR | + + + | Race | White | + + + | Ethnic Group | Not or | + + + Author + + + | Author | [facility] | + + + | Organization | [facility] | + + + | Address | Unknown | + + + | Phone | Unavailable | + + + Support + + +---------+ + | Name | Relationship | Address | Phone | + + +---------+ + | Caroline Elaine | ECON | Unknown | | + + +---------+ + Care Team Providers + +------+ + | Care Tribal Council Member Name | Role | Phone | [...] | | | | | | [address] [facility] | | | | | | | | | | | | | | Mailcode: | | | | | | | [id number] | | | | | | | [place] | | | | | | | [place], [place] | | | | | | | [address] | | | | | | | Phone: | | | | | | | [phone] | | | | | | | Fax: | | | | | | | [phone] | +--------+--------+ + + + + Encounter Details +--------+ + + + + | Date | Type | Department | Care Team | Description | +--------+ + + + + | 07/23/ | Hospital | [facility] [address] | Lee Lucio, | | | 2010 - | Encounter | [place] Mailcode: | [address] | | | | | [address] | [place], [place] | | | 07/28/ | | [place], | [address] | | | 2010 | | [place] [phone] | [phone] | | | | | [phone] | | | +--------+ + + + [...] + + + | Blood Pressure | 141/96 | 07/28/2010 6:27 AM | | | | | PST | | + + + + + | Pulse | 76 | 07/28/2010 6:27 AM | | | | | PST | | + + + + + | Temperature | 36.8 C (98.2 F) | 07/28/2010 6:27 AM | | | | | PST | | + + + + + | Respiratory Rate | 16 | 07/28/2010 6:27 AM | | | | | PST | | + + + + + | Oxygen Saturation | 95% | 07/28/2010 6:27 AM | | | | | PST | | + + + + + | Inhaled Oxygen | - | - | | | Concentration | | | | + + + + + | Weight | 99.9 kg (220 lb 3.2 | 07/28/2010 3:18 AM | | | | oz) | PST | | + + + + + | Height | 175 cm (5' 8.9") | 07/23/2010 9:39 AM | | | | | PST | | + + + + + | Body Mass Index | 32.61 | 07/23/2010 9:39 AM | | | | | PST | | + + + + + documented in this encounter Discharge Summaries Renetta Garcia MD - 07/28/2010 6:33 AM PST DISCHARGE SUMMARY: Patient: Phi Elaine Admission Date: 07/23/2010 Discharge Date: 07/28/2010 Attending Physician: Lee Lucio MD PCP: Charlotte Preston MD Service: [facility] Surgery Diagnoses Principal Final Diagnosis: 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 Additional Diagnoses: None Procedures 07/23/2010: 1. Exploratory celiotomy. 2. Complex resection of mesenteric juliano mass. 3. Open cholecystectomy. 4. Intraoperative ultrasonography of the liver. Brief Hospital Course Phi Elaine is a 64 year old man who was admitted to [facility] on 07/23/2010 and underwen t exploratory celiotomy, complex resection of mesenteric juliano mass, open cholecystectomy, a nd intraoperative ultrasonography of the liver. He tolerated these procedures well without any complications. Post-operatively, the patient was transferred to the dobbs in good condit ion. His pain was initially controlled with the NURSE QUALITY. By POD# 1 he was tolerating clear liq uids, ambulating, using the incentive spirometer, and generally doing quite well. On the ev ening of POD#1, the hawkins catheter was replaced for continued urinary retention. On POD#2 h e experienced some low urine output for which his IV fluids were continued, and he was kept on a clear liquid diet while awaiting the return of bowel function. On POD#3 he was transit ioned off the NURSE QUALITY and onto oral narcotics for pain control. His Hawkins catheter was successf ully removed and he voided on his own. By POD#4, he was passing flatus, but still awaited r eturn of bowel movements. His urine output had improved. He was deemed fit for discharge ho hi on POD#5 with follow up planned for clinic with Dr. Lucio 2 weeks after discharge. Diet Regular Regular diet- There are no restrictions to your diet. You may eat or drink whatever you pr efer, though healthy food choices are recommended. Activity Restrictions: 1. No heavy lifting > 10lbs for 2 months 2. No driving for 10 days or while on narcotics 3. No tub bath, hot tubs, or swimming for 6 weeks 4. May shower, but please dry incision site Follow Up Appointments: as detailed below Destination: Destination: Home Condition on Discharge Good Discharge Follow Up Provider and Clinic: Please call [phone] to schedule appointment for [address] Lucio on 08/12/2010 PCP:Charlotte Preston MD When: Please follow-up with your primary care physician as soon as possibl e to review new medications and recent interventions Current Discharge Medication List START taking these medications acetaminophen 325 mg Oral Tablet Take 1 Tab by mouth every four hours as needed. Indications: Fever, Pain Qty: 100 Tab Refills: 0 docusate sodium 100 mg Oral Capsule Take 1 Cap by mouth two times daily. Qty: 20 Cap Refills: 0 oxyCODONE, immediate release, 5 mg Oral Tablet Take 1-3 Tabs by mouth every three hours as needed for severe pain and breakthrough pain. Qty: 60 Tab Refills: 0 STOP taking these medications Hydrocodone-Acetaminophen 5-500 mg Oral Capsule Comments: Reason for Stopping: Special Instructions/Tests: None Condition On Discharge: Good Vital Signs at discharge as appropriate: BP: 141/96 mmHg (07/28/10626) Pulse: 76 (07/28/10626) Resp: 16 (07/28/10626) Wilson ght: 99.882 kg (220 lb 3.2 oz) (07/28/10317) Discharge Patient To: Home Discharging Provider: RENETTA GARCIA MD Date Completed: 07/28/2010 Time Completed: 6:33 AM Discharging Attending: MD RENETTA Lucia MD [facility] Department of Surgery Resident documented in this en counter Discharge Instructions Instructions Shaniquaman Olivia Tena - 07/28/2010INPATIENT NURSE ORDER FOR DISCHARGE A ND INTERDISCIPLINARY INSTRUCTIONS DISCHARGE DATE: 07/28/2010 PATIENT EDUCATION: Patient given the following printed education materials Oxycodone drug info Review with patient/family: Understanding of disease/injury/surgical repair Yes Signs/symptoms that they should report Yes Understanding of medications and side effects Yes Activity and diet instructions Yes Follow-up appointments Yes Any concerns/fears Yes Smoking Cessation Counseling/Information was given on admission. Additional Instructions: (ex: daily weights, wound care, tube feeding, trach care, CBG roxana toring etc.) Personal Effects/Medications: Sent home with patient Discharged Via: Wheelchair Mode of Transportation: Car Accompanied by: Family/Responsible [employer] Name: (when applicable) Phone #: Discharge Nurse: Olivia Tena Date: 07/28/2010 Discharge Time: 7:48 AM AttachmentsThe following attachments cannot be sent through Care Everywhere.Medication Advi sor 2009.3: Oxycodone, Oraldocumented in this encounter Medications at Time of Discharge [...] + + documented as of this encounter Progress Notes Juliet Oconnor MD - 07/28/2010 7:18 AM PSTFormatting of this note might be different fro m the original. . GOLD SURGERY PROGRESS NOTE Author: Starr Oconnor MD Attending Physician: Lee Lucio MD 07/28/2010 No interval events Subjective: Patient without complaint. Denies pain, N/V/D/C,CP/SOB. Reports + BM. Medications: Current Inpatient Medications Medication Dose Route Frequency acetaminophen (aka TYLENOL) tablet 325 mg 325 mg Oral Q4H PRN docusate sodium (aka COLACE) capsule 100 mg 100 mg Oral BID enoxaparin (aka LOVENOX) injection 40 mg 40 mg Subcutaneous QPM HYDROmorphone (aka DILAUDID) injection 0.5-2 mg 0.5-2 mg Intravenous Q4H PRN metoclopramide (aka REGLAN) injection 10 mg 10 mg Intravenous Q6H PRN naloxone (aka NARCAN) injection Intravenous PRN oxyCODONE immediate release (aka ROXICODONE) tablet 5-15 mg 5-15 mg Oral Q4H PRN prochlorperazine (aka COMPAZINE) injection 5 mg 5 mg Intravenous Q6H PRN ranitidine (aka ZANTAC) tablet 150 mg 150 mg Oral Q12H Objective: Systolic (24hrs), Min:124 mmHg, Max:158 mmHg Diastolic (24hrs), Min:76 mmHg, Max:98 mmHg Pulse Av.6 Min: 67 Max: 103 Temp Av.8 C (98.3 F) Min: 36.7 C (98 F) Max: 37 C (98.6 F) Resp Av Min: 16 Max: 16 SpO2 Av.6 % Min: 93 % Max: 97 % Intake and Output: Date 07/27/10 07 - 07/28/10 0659 07/28/10 07 - 07/29/10 0659 Shift 3897-1477 9939-3565 4400-9932 Daily Total 6228-7069 6104-8748 8301-9559 Daily Total I N T A K E P.O. 860 816 015 5874 I.V. 305 0 305 Shift Total 860 1814 489 8759 O U T P U T Urine 800 1400 1300 3500 Shift Total 800 1400 1300 3500 Physical Exam: General : NAD Neck: No JVD, NEEMA Chest: CTA bilaterally Cardiovascular: RRR Gastrointestinal: NTND, +BS, incision C/D/I, No E/E/I Ext: : No C/C/E Labs: Chemistries Recent Labs Basename 07/27/10 0600 07/26/10 0534 NA 136 136 K 3.2* 3.8 CL 103 101 BICARB 26 31* BUN 9 8 CR 1.04 0.94 GLU 96 128* CA 8.4* 8.3* MG -- -- PO4 -- -- CBC with diff Recent Labs Basename 07/27/10 0600 07/26/10 0534 WBC 6.2 6.2 HB 12.6* 11.6* HCT 36.2* 33.3* PLT 186 150 NEUTROPERC -- -- BANDPCT -- -- LYMPHPERC -- -- MONOPERC -- -- BASOPERC -- -- EOSPERC -- -- Coag No results found for this basename: inr:3, ptt:3, pt:3 Assessment and Plan: Phi Elaine is a 64 y.o. male who is on HD# 5. Exploratory laparoscopy, complex rese ction of mesenteric juliano mass, and open cholecystectomy. Appears to be doing well. Discharge criteria amet. Plan to discharge home today with instructions, appointments, and prescriptions provided. Questions answered. The patient was seen and examined during [facility] Team Surgery Rounds. The attending of record for this patient is Dr. Lucio. Starr Oconnor MD [facility] Surgery Resident Pager:[phone] uliet Oconnor MD - 07/27/2010 1:25 PM PST . [facility] SURGERY PROGRESS NOTE Author: Starr Oconnor MD Attending Physician: Lee Lucio MD 07/27/2010 No interval events. Subjective: Patient reports + flatus, awaiting BM. No nausea. Medications: Current Inpatient Medications Medication Dose Route Frequency acetaminophen (aka TYLENOL) tablet 325 mg 325 mg Oral Q4H PRN docusate sodium (aka COLACE) capsule 100 mg 100 mg Oral BID enoxaparin (aka LOVENOX) injection 40 mg 40 mg Subcutaneous QPM HYDROmorphone (aka DILAUDID) injection 0.5-2 mg 0.5-2 mg Intravenous Q4H PRN metoclopramide (aka REGLAN) injection 10 mg 10 mg Intravenous Q6H PRN naloxone (aka NARCAN) injection Intravenous PRN oxyCODONE immediate release (aka ROXICODONE) tablet 5-15 mg 5-15 mg Oral Q4H PRN prochlorperazine (aka COMPAZINE) injection 5 mg 5 mg Intravenous Q6H PRN ranitidine (aka ZANTAC) tablet 150 mg 150 mg Oral Q12H Objective: Systolic (24hrs), Min:126 mmHg, Max:152 mmHg Diastolic (24hrs), Min:84 mmHg, Max:98 mmHg Pulse Av.8 Min: 85 Max: 103 Temp Av.9 C (98.5 F) Min: 36.7 C (98.1 F) Max: 37.2 C (98.9 F) Resp Av Min: 16 Max: 16 SpO2 Av % Min: 92 % Max: 97 % Intake and Output: Date 07/26/10699 - 07/27/10 0659 07/27/10 07 - 07/28/10 0659 Shift 5976-8521 6229-5553 2616-1601 Daily Total 1000-0938 5456-0047 7242-5058 Daily Total I N T A K E P.O. 540 3258 416 7035 510 510 I.V. 810 016 75 8513 Shift Total 1350 3475 517 7918 510 510 O U T P U T Urine 2175 2450 1910 6535 800 800 Shift Total 2175 2450 1910 6535 800 800 Physical Exam: General : NAD Neck: No JVD, NEEMA Chest: CTA bilaterally Cardiovascular: RRR Gastrointestinal: NTND, +BS, incision C/D/I, No E/E/I Ext: : No C/C/E Labs: Chemistries Recent Labs Basename 07/27/10 0600 07/26/10 0534 07/25/10 0503 NA 136 136 134 K 3.2* 3.8 4.3 CL 103 101 99 BICARB 26 31* 31* BUN 9 8 14 CR 1.04 0.94 0.96 GLU 96 128* 140* CA 8.4* 8.3* 8.4* MG -- -- -- PO4 -- -- -- CBC with diff Recent Labs Basename 07/27/10 0600 07/26/10 0534 07/25/10 0503 WBC 6.2 6.2 8.6 HB 12.6* 11.6* 11.7* HCT 36.2* 33.3* 34.0* PLT 186 150 158 NEUTROPERC -- -- -- BANDPCT -- -- -- LYMPHPERC -- -- -- MONOPERC -- -- -- BASOPERC -- -- -- EOSPERC -- -- -- Coag No results found for this basename: inr:3, ptt:3, pt:3 Assessment and Plan: Phi Elaine is a 64 y.o. male who is on HD# 4 Continue Current pharmacotherapeutic plan. Encourage OOB, ambulation, Pulmonary toilet. Continue regular diet as tolerated. K supplementation ordered. The patient was seen and examined during Gold team surgery rounds. The attending of record for this patient care encounter is Dr. Khadijah Oconnor MD [facility] Surgery Resident Pager:[phone] Juliet Grewal MD - 07/26/2010 3:45 PM PST . [facility] SURGERY PROGRESS NOTE Author: Starr Oconnor MD Attending Physician: Lee Lucio MD 07/26/2010 Subjective: No interval events. Medications: Current Inpatient Medications Medication Dose Route Frequency acetaminophen (aka TYLENOL) tablet 325 mg 325 mg Oral Q4H PRN docusate sodium (aka COLACE) capsule 100 mg 100 mg Oral BID enoxaparin (aka LOVENOX) injection 40 mg 40 mg Subcutaneous QPM HYDROmorphone (aka DILAUDID) injection 0.5-2 mg 0.5-2 mg Intravenous Q4H PRN metoclopramide (aka REGLAN) injection 10 mg 10 mg Intravenous Q6H PRN naloxone (aka NARCAN) injection Intravenous PRN oxyCODONE immediate release (aka ROXICODONE) tablet 5-15 mg 5-15 mg Oral Q4H PRN prochlorperazine (aka COMPAZINE) injection 5 mg 5 mg Intravenous Q6H PRN ranitidine (aka ZANTAC) tablet 150 mg 150 mg Oral Q12H Objective: Systolic (24hrs), Min:120 mmHg, Max:144 mmHg Diastolic (24hrs), Min:84 mmHg, Max:102 mmHg Pulse Av.6 Min: 82 Max: 96 Temp Av.8 C (98.2 F) Min: 36.6 C (97.9 F) Max: 36.9 C (98.5 F) Resp Av Min: 16 Max: 16 SpO2 Av.6 % Min: 91 % Max: 97 % Intake and Output: Date 07/25/10699 - 07/26/1059 07/26/10699 - 07/27/10 0659 Shift 8321-4382 3870-2070 3906-2882 Daily Total 8809-5964 2905-7703 8102-4942 Daily Total I N T A K E P.O. 8992 644 0854 300 300 I.V. 1000 105 303 1247 810 810 Shift Total 2420 600 1175 4195 1110 1110 O U T P U T Urine 2049 2900 4950 2175 217 Shift Total 2049 2900 4950 2175 2175 Physical Exam: General : NAD Neck: No JVD, NEEMA Chest: CTA bilaterally Cardiovascular: RRR Gastrointestinal: NTND, +BS, incision C/D/I, No E/E/I Ext: : No C/C/E Labs: Chemistries Recent Labs Basename 07/26/10 0534 07/25/10 0503 07/24/10 0520 NA 136 134 136 K 3.8 4.3 4.2 CL 101 99 103 BICARB 31* 31* 25 BUN 8 14 16 CR 0.94 0.96 1.19 GLU 128* 140* 152* CA 8.3* 8.4* 8.4* MG -- -- -- PO4 -- -- -- CBC with diff Recent Labs Basename 07/26/10 0534 07/25/10 0503 07/24/10 0520 WBC 6.2 8.6 10.8 HB 11.6* 11.7* 13.4* HCT 33.3* 34.0* 38.6* PLT 150 158 191 NEUTROPERC -- -- -- BANDPCT -- -- -- LYMPHPERC -- -- -- MONOPERC -- -- -- BASOPERC -- -- -- EOSPERC -- -- -- Coag No results found for this basename: inr:3, ptt:3, pt:3 Assessment and Plan: Phi Elaine is a 64 y.o. male who is on HD# 3 Exploratory laparoscopy, complex resec tion of mesenteric juliano mass, and open cholecystectomy. Continue current po pain medication strategy. Continue to encourage Pulmonary toilet. Continue diet as tolerated - slow advancement. Continue hawkins for now. Continue postsurgical prophylaxis (HAP, VTE, GI) The patient was seen and examined during [facility] Team Surgery Rounds. The attending of record for this patient care encounter is Dr. Khadijah Oconnor MD [facility] Team Surgery Pager:[phone] Lee Li MD - 07/25/2010 9:17 AM PSTSurgical Oncology Chief Resident Progress Note No acute events overnight. Had to be straight cathed x 1 last night for urinary retention. Pain controlled. Exam: AF VS WNL Abd: Soft, appropriately tender, inc: c/d/i. Minimal distention. Ext: Trace pedal edema. Lab data reviewed: Imp: POD#2. Stable. Plan: 1. Replace hawkins. 2. Keep fluids running (d/t low uop). 3. Cont clear liquid diet (no flatus nor bm) in the face of abdominal distention. 4. Dispo: Dobbs status. This patient and plan was seen with Dr. Lucio who agrees w/the above. Jonny Corado M.D. General Surgery Chief Resident [facility] Pager: [phone] I rounded on the patient with the Gold team. I performed a history and physical examination of the patient and discussed his management with the resident. I reviewed the resident s note and agree with the documented findings and plan of care. Will re-insert Hawkins for urin austin retention. Stay on clear liquids today. Wound looks good. LEE LUCIO MD [employer] teacher Division of Surgical Oncology [phone], [place] [address] Adolfo Nelson - 07/25/2010 9:15 AM PST INPATIENT PROGRESS NOTE Hospital Day:2 Author; ADOLFO MELENDEZ Attending Physician: Lee Lucio MD ID: Mr. Elaine is a 64 yo man with metastatic carcinoid tumor, po day 2 after exploratory l aparoscopy, complex resection of mesenteric juliano mass, and open cholecystectomy. Interval Hx: - Difficulty voiding after hawkins catheter was removed yesterday, required 3 straight cathet erizations - Pain is controlled with IV hydromorphone - Has not passed gas as yet - Several episodes of nausea yesterday and this morning, no vomiting - Sipping on liquids Current facility-administered medications Medication Dose Route Frequency Provider Last Rate Last Dose acetaminophen (aka TYLENOL) tablet 325 mg 325 mg Oral Q4H PRN Jonny Corado MD dextrose 5%-lactated ringers IV Intravenous CONTINUOUS Jonny Corado MD 100 mL/hr (07/25/10 0104) docusate sodium (aka COLACE) capsule 100 mg 100 mg Oral BID Jonny Corado MD Last Dose: 100 mg at 07/25/10 0822 HYDROmorphone 25 mg in bacteriostatic NaCl 0.9% 50 mL NURSE QUALITY infusion Intravenous MARLA NUOUS Jonny Corado MD metoclopramide (aka REGLAN) injection 10 mg 10 mg Intravenous Q6H PRN Jonny Corado MD naloxone (aka NARCAN) injection Intravenous PRN Jonny Corado MD prochlorperazine (aka COMPAZINE) injection 5 mg 5 mg Intravenous Q6H PRN Jonny parikh MD Last Dose: 5 mg at 07/24/10 0540 Physical Exam: Last Vitals: BP 136/85 | Pulse 89 | Temp 36.8 C (98.2 F) | RR 16 | Ht 1.75 m (5' 8.9") | Wt 100.5 kg (221 lb 9 oz) | SpO2 91% | BMI 32.82 kg/(m^2) O2 Delivery Device: Nasal cannul a (07/25/10 0810) 24 Hour Vital Min/Max: Systolic (24hrs), Min:127 mmHg, Max:146 mmHgDiastolic (24hrs), Min:84 mmHg, Max:98 mmHgPuls e Min: 84 Max: 106 Temp Min: 36.4 C (97.6 F) Max: 37.2 C (98.9 F) Resp Min: 10 Max: 18 SpO2 Min: 90 % Max: 93 % Intake/Output Summary (Last 24 hours) at 07/25/10 0915 Last data filed at 07/25/10 0800 Gross per 24 hour Intake 5040 ml Output 1500 ml Net 3540 ml General Appearance: Anxious appearing man, resting in bed, in some distress HEENT: No scleral icterus or injection Neck: Supple Respiratory: CTAB Cardiovascular: RRR Gastrointestinal: Firm, slightly distended abdomen. Tympanic to percussion. Mild tenderne ss to palpation. Incision site clean, dry, and intact. No surrounding erythema. Lymphatic: No pitting edema CBC with diff last 72 hours (or 3 results) Recent Labs Basename 07/25/10 0503 07/24/10 0520 07/22/10 1500 WBC 8.6 10.8 8.3 HB 11.7* 13.4* 16.2 HCT 34.0* 38.6* 46.7 PLT 158 191 219 NEUTROPERC -- -- -- BANDPCT -- -- -- LYMPHPERC -- -- -- MONOPERC -- -- -- BASOPERC -- -- -- EOSPERC -- -- -- Chemistries: Last 72 Hours (or 3 results): Recent Labs Basename 07/25/10 0503 07/24/10 0520 07/22/10 1500 NA 134 136 141 K 4.3 4.2 3.6 CL 99 103 109* BICARB 31* 25 24 BUN 14 16 15 CR 0.96 1.19 1.27 GLU 140* 152* 103* CA 8.4* 8.4* 9.9 MG -- -- -- PO4 -- -- -- Assessment and Plan: Mr. Elaine is a 64 yo man with metastatic carcinoid tumor, po day 2 after exploratory lapar oscopy, complex resection of mesenteric juliano mass, and open cholecystectomy. 1. Post-op - Mr. Wilson's pain is currently well controlled with IV medications. He was un able to urinate yesterday after his Hawkins was removed and had to be straight catheterized se veral times. We will replace his hawkins today and leave it in for 2 days to give his bladder some rest. We will try to remove the hawkins on 07/27 or 07/28. He has had some nausea and curr ently has a prescription for Reglan 10 mg q 6 hours prn. We will continue to encourage ambu lation with the help of nursing and encourage use of the incentive spirometer. No discharge date has been established. I reviewed this patient with the Gold Surgery team on rounds. Adolfo eMlendez MS3 Lee Li MD - 07/24/2010 10:30 AM PSTAgree with MS3 Note. Mr. Elaine is one day out from an exploratory laparotomy, mesenteric mass resection, and ch olecystectomy. He is doing well. Exam is benign. Will start clears. He needs to mobilize and use incentive spirometer. Will cont to keep him on dobbs status. Poss d/c early next w [place]. This patient and plan was seen and d/w Dr. Lucio who agrees w/the above. Jonny Corado M.D. General Surgery Chief Resident [facility] Pager: [phone] I rounded on the patient with the Gold team. He is doing well. Discussed results of operati on with him. LEE LUCIO MD [employer] teacher Division of Surgical Oncology [id number], [place] [address] Adolfo Nelson - 07/24/2010 10:30 AM PST INPATIENT PROGRESS NOTE Hospital Day:1 Author; ADOLFO MELENDEZ Attending Physician: Lee Lucio MD ID: Mr. Elaine is a 64 yo man with metastatic carcinoid tumor, po day 1 after exploratory l aparoscopy, complex resection of mesenteric juliano mass, and open cholecystectomy. Interval Hx: - Pain is controlled with IV medication, still has Hawkins in place - Urine appeared cloudy which patient notes is unusual for him. No pain or burning with ur ination. - Has not gotten out of bed as yet - Tolerating clear liquid diet with no nausea or vomiting Current facility-administered medications Medication Dose Route Frequency Provider Last Rate Last Dose acetaminophen (aka TYLENOL) tablet 325 mg 325 mg Oral Q4H PRN Jonny Corado MD dextrose 5%-lactated ringers IV Intravenous CONTINUOUS Jonny Corado MD 100 mL/hr (07/24/10 9380) docusate sodium (aka COLACE) capsule 100 mg 100 mg Oral BID Jonny Corado MD Last Dose: 100 mg at 07/24/10 0931 HYDROmorphone 25 mg in bacteriostatic NaCl 0.9% 50 mL NURSE QUALITY infusion Intravenous MARLA NUOUS Jonny Corado MD metoclopramide (aka REGLAN) injection 10 mg 10 mg Intravenous Q6H PRN Jonny Corado MD naloxone (aka NARCAN) injection Intravenous PRN Jonny Corado MD prochlorperazine (aka COMPAZINE) injection 5 mg 5 mg Intravenous Q6H PRN Jonny parikh MD Last Dose: 5 mg at 07/24/10 0540 Physical Exam: Last Vitals: BP 137/90 | Pulse 98 | Temp 36.7 C (98 F) | RR 18 | Ht 1.75 m (5' 8.9") | Wt 100.5 kg (221 lb 9 oz) | SpO2 91% | BMI 32.82 kg/(m^2) O2 Delivery Device: Nasal cannula (07/24/10 0619) 24 Hour Vital Min/Max: Systolic (24hrs), Min:92 mmHg, Max:163 mmHgDiastolic (24hrs), Min:54 mmHg, Max:110 mmHgPuls e Min: 66 Max: 103 Temp Min: 36.6 C (97.8 F) Max: 37.2 C (99 F) Resp Min: 12 Max: 21 SpO2 Min: 88 % Max: 98 % Intake/Output Summary (Last 24 hours) at 07/24/10 1030 Last data filed at 07/24/10 0900 Gross per 24 hour Intake 5700 ml Output 1225 ml Net 4475 ml General Appearance: Resting comfortably in bed, NAD HEENT: No scleral icterus or injection Neck: Supple Respiratory: CTAB Cardiovascular: RRR Gastrointestinal: Soft, non-distended. No tenderness to palpation. CBC with diff last 72 hours (or 3 results) Recent Labs Basename 07/24/10 0520 07/22/10 1500 WBC 10.8 8.3 HB 13.4* 16.2 HCT 38.6* 46.7 PLT 191 219 NEUTROPERC -- -- BANDPCT -- -- LYMPHPERC -- -- MONOPERC -- -- BASOPERC -- -- EOSPERC -- -- Chemistries: Last 72 Hours (or 3 results): Recent Labs Basename 07/24/10 0520 07/22/10 1500 NA 136 141 K 4.2 3.6 CL 103 109* BICARB 25 24 BUN 16 15 CR 1.19 1.27 GLU 152* 103* CA 8.4* 9.9 MG -- -- PO4 -- -- Assessment and Plan: Mr. Elaine is a 64 yo man with metastatic carcinoid tumor, po day 1 after exploratory lapar oscopy, complex resection of mesenteric juliano mass, and open cholecystectomy. He is tolerat ing clear fluids and his pain is well controlled with IV medications. We are encouraging am bulation and use of the incentive spirometer. We ordered a urine dipstick and culture as hi s urine was cloudy. We are awaiting final pathology on the mesenteric mass. I reviewed this patient with the Gold Surgery team on rounds. Adolfo Al MS3 documented in this e ncounter H&P Notes Other, Faculty - 07/28/2010 9:43 PM PST documented in this encou nter Procedure Notes Other, Faculty - 07/28/2010 9:43 PM PST Lee Li MD - 8:57 AM PSTAssociated Order(s): OPERATION RECORD; OPERATION RECORD [id number] DIANE Morocho [id number] Date: 07/23/2010 Attending Surgeon: Lee Lucio M.D. Optical Store Manager(s): Jonny Corado M.D. Preoperative Diagnosis(es): History of small bowel carcinoid with metastasis to the mesenteric nodes at the root of the mesentery, possible liver metastases. 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 Procedures Performed: 1. Exploratory celiotomy. 2. Complex resection of mesenteric juliano mass. 3. Open cholecystectomy. 4. Intraoperative ultrasonography of the liver. Anesthesia: General endotracheal. Indications: Mr. Elaine is a 64-year-old man who has a history of small bowel carcinoid, presented with bowel obstruction. He was operated in [place] and was found to have a tumor in the terminal ileum that was resected. He also was found to have a large mass near the root of the mesentery that was biopsied and proved to be metastatic carcinoid but was not resected. He was thought not to have visible liver metastases at that time. The patient saw me in consultation, and review of the CT scans indicated the mesenteric juliano mass. Further workup did not reveal any metastatic disease on OctreoScan or biochemical testing, but he might have metastases detectable by further inspection of the liver or intraoperative ultrasonography. The mesenteric mass appeared to be surgically resectable. Because the patient has carcinoid and might have a future need of long-term somatostatin analog therapy which causes cholelithiasis, prophylactic cholecystectomy is indicated in carcinoid patients. He is taken to the operating room today for exploration for resection and/or debulking of the mesenteric mass, inspection of the liver, intraoperative ultrasonography of the liver, possible liver resection, and prophylactic cholecystectomy. Findings At Operation: The patient had adhesions of the omentum to his midline incision from his previous operation. There were also multiple interloop adhesions. He had an anastomosis in the [id number] fashion in the terminal ileum. There was a mesenteric mass at the root of the mesentery just to the right of the superior mesenteric vein and artery. It did not involve any major radicles to the small bowel or right colon. It just involved minor radicles. He had no cholelithiasis. The liver was free of metastases on inspection, palpation, and intraoperative ultrasonography. He had no carcinomatosis. Procedure: The patient was identified, taken to the operating room, and placed on the operating table in supine position. He was given prophylactic antibiotics and prophylactic octreotide, and general anesthetic was induced. Lines were placed. Hawkins catheter was placed. His abdomen was then prepared and draped in sterile fashion. A surgical team pause was held, and there was agreement on all aspects of the prescribed surgical team pause. We opened his midline incision. He had dense adhesions to the subcutaneous tissue and the fascia. Underneath that, he had adhesions of the properitoneal space; however, we were able to enter the peritoneal cavity bluntly with adhesions between the peritoneum and the omentum. The fascia was elevated with Amanda clamps, and dissection was carried out toward the right side in the plane between the omentum and the peritoneum, and eventually, free space in the right lower quadrant was entered. We were then able to dissect this circumferentially around the incision and free up the omentum from the incision. The omentum was stuck down to the bladder flap, and it was transected just above the bladder flap thus allowing it to be retracted superiorly. We then found numerous adhesions of the omentum to the small bowel and the small bowel to itself and to the mesentery. These were all taken down with sharp dissection. Eventually, we were able to take the small bowel from the ligament of Treitz and run it to the anastomosis in the terminal ileum where a [id number] anastomosis was identified. We could also see that his appendix had been removed. We then took down the falciform ligament, divided ligamentum teres and tied that off with 2-0 silk ties, divided the falciform ligament up toward the inferior vena cava. We then inspected the liver and saw no metastases. We palpated the liver and saw no metastases. Intraoperative ultrasonography also revealed no metastases. Thus, no liver resection was required. We then proceeded to perform the complex mesenteric resection. A Doppler was brought onto the field, and we elevated the root of the mesentery. We listened with the Doppler and identified the location of the superior mesenteric artery, and we could hear the roar of the venous signal in the superior mesenteric vein to the right. We mapped this out on the surface of the mesenteric anterior peritoneal leaf using marking pens and clips. The mesenteric juliano mass was at the root of the mesentery just to the right of these vessels. It appeared that the right colic and ileocolic passed beneath the juliano mass by mapping. We then opened the anterior peritoneal leaf along a line just to the right of the location of the superior mesenteric vein. We dissected down into the mesentery on the medial side of the juliano mass. Some veins were entered, and these were suture ligated with 4-0 Prolene. The Harmonic scalpel was used to divide mesenteric fat and lymphatics and nerves. Using right angle dissection and tonsil dissection and the above-described techniques of dividing mesenteric fat, vessels, and nerves, we scored along the right side of the superior mesenteric vein and artery liberating the juliano mass toward the right. Some small minor branches of mesenteric artery and vein that were coursing into the mass were divided and suture ligated with 4-0 Prolene sutures. Dissection was then carried down to the posterior leaf of the peritoneum on the mesentery, but this was not violated to leave the peritoneum intact on one side. We then dissected underneath the mass leaving the posterior peritoneal leaflet in place. Again the same techniques were used to divide structures. We then dissected around the superior edge and then went over toward the right mesocolon. Here, the peritoneum was fairly contracted from the hormonal effects on the peritoneum. The peritoneum was incised with electrocautery, and this released it and allowed us to dissect down on the right lateral side of the mass down to the posterior leaflet. This technique was then continued. We were taking lymphatics and tributaries and suture ligating them as required and skeletonizing major vessels near the root of the mesentery and superior mesenteric vein, and the mass was eventually delivered from the wound. I then palpated the mesentery, and it felt that there was still thickening and possible juliano disease up higher. I split the anterior leaf of the mesentery just to the right of the superior mesenteric vein and cut into the fat, and this was just found to be saponified fibrotic fat, no juliano metastases were identified there. This was in agreement with the findings on the CT scan which indicated that we should have already resected the juliano disease. The mesentery was irrigated. Bleeding points were controlled with electrocautery and suture ligation using 4-0 silk and 4-0 Prolene as required. The bowel was then inspected and found to be completely viable. Because the posterior leaflet of the mesentery had not been violated, we did not have to do any repair of any mesenteric defect. We then packed the liver down inferiorly by placing lap pads between the diaphragm and the liver. The gallbladder fundus was grasped. The gallbladder serosa was scored 1 cm from the liver edge. Dissection was then carried down in the plane between the serosa and gallbladder muscularis down the fundus, down the anterior cystic plate toward the hilum, and down the posterior cystic plate toward the hilum. The gallbladder was then peeled out of the gallbladder fossa. Dissection was carried toward the hilum. The triangle of Calot was dissected out. The cystic artery was identified, triply clipped, and divided leaving 2 clips on the patient's side. We then skeletonized the cystic duct and bile duct junction. The cystic duct was clamped with a right angle clamp. The gallbladder end of the cystic duct was closed with a large clip. The gallbladder was amputated and passed off the field. The cystic duct stump was ligated with 3-0 Vicryl suture. The anna hepatis was then checked for hemostasis which was adequate. Electrocautery was used to achieve hemostasis in the gallbladder fossa. The lap pads were then removed. The abdomen was copiously irrigated with 2 L of saline. A hole in the omentum that resulted from the dissection was closed with [id number] 3-0 silk sutures. The viscera were returned to their [place] positions. They were covered with the omentum. The midline abdominal incision was then closed with two running looped number 1 Maxon sutures starting at either superior or inferior vertex and tied just above the umbilicus. Subcutaneous tissues were irrigated and checked for hemostasis. The skin was closed with jno. Estimated blood loss was minimal. There were no complications. He did not require any additional octreotide for carcinoid crisis. He was awakened, extubated, and transported to the recovery room in stable condition. All specimens were sent to Pathology. This operation qualifies for a 22 modifier because of the complicated nature of mesenteric juliano resection against the superior mesenteric vessels. Lee Lucio M.D. / [id number] / [id number] / [id number] / ther, Faculty - 6:33 PM PSTAssociated Order(s): ANESTHESIA/SEDATION; ANESTHESIA/SEDATION Jonny Rosales MD - 0 07/23/2010 6:07 PM PSTAssociated Order(s): PROCEDURE NOTEINPATIENT BRIEF OPERATIVE NOTE Procedure Date: 07/23/10 Author: JONNY CORADO MD Attending Physician: Khadijah Assistants: Todd Escobedo Prior to the beginning of the procedure the team paused to verify the patient's identity, a s well as the procedure to be performed and the correct side/site. All equipment required w as ready and available. The patient was positioned appropriately. The following fast food team member s were present during the team pause: OR team. Preoperative Diagnosis: Mesenteric mass, metastatic carcinoid tumor. Postoperative Diagnosis: Same. Procedure Performed: 1. Exploratory laparotomy. 2. Cholecystectomy. 3. Lysis of adhesions (modifier 22). 4. Resection of mesenteric lymph node. Estimated Blood Loss: 100mL Fluids: 4.4L crystalloid. UOP: 130mL Specimens: 1. Gallbladder. 2. Mesenteric lymph nodes Complications: None apparent. Drains: None. Disposition: Extubated, stable to PACU. Findings: 1. Dense intraabdominal adhesions. 2. Mesenteric lymph node mass lateral to ileocolic branch of SMA. Jonny Corado M.D. General Surgery Chief Resident [facility] Pager: [phone] ther, Faculty - 06/30 9:25 PM PST ther, Faculty - 011 4:33 PM PST ther, Faculty - 011 4:15 PM PST documented in this encou nter Miscellaneous Notes Scan - Other, Faculty - 07/28/2010 9:43 PM PST can - Other, Faculty - 07/28/2010 9:43 PM PST can - Other, Faculty - 07/28/2010 9:43 PM PST can - Other, Faculty - 07/28/2010 9:43 PM PST can - Other, Faculty - 07/28/2010 9:13 PM PST lan of Care - Adeola Alvarez - 07/28/2010 1:08 AM PSTProblem: General Plan of Care (Adult) Goal: Individualization/Patient-Specific Goal Outcome: Complication present (see intervention notes) Goals: 1. Prevent/Manage respiratory complications 2.Promote rest. Interventions: 1. Assess respiratory status (rate, depth, SpO2) Q 4 hours and prn. Encourage use of IS, TC DB, and activity OOB. Provide adequate pain relief, provide pt with pillow and encourage spl inting prn. Wean supplemental O2 to keep SpO2 >92%. 2.Cluster RN and AGRICULTURAL EXTENSION OFFICER care to promote rest. Manasa Carvajal - 07/27/2010 9:59 PM PSTPrimary focus of stay: 07/23 exploratory laparotomy, cholecyste ctomy, resection of mesenteric lymphnode Pertinent physical findings: Hx of mesenteric mass, metastatic carcinoid tumor. Midline abd incision CAFETERIA CASHIER. PIV x1- SLIV. Hypoactive bowel tones, no BM, but this AM started passing flat us Orders to follow up on: Monitor abdominal distention and nausea. PO intake improved this sh ift but increased abdominal discomfort/acid reflux/hiccups. Last pain assessment/reassessment:Denies pain this shift. Psych/social issues: None, pt very pleasant Last patient visit (i.e. Falls/Activity/Comfort/Environment/Toileting/Skin): Pt independent in room Anticipated or pending procedures:Pt to [place] home tomorrow Omar Thacker R N - 07/27/2010 2:39 PM PSTPrimary focus of stay: 07/23 exploratory laparotomy, cholecystecto my, resection of mesenteric lymphnode Pertinent physical findings: Hx of mesenteric mass, metastatic carcinoid tumor. Midline abd incision DENISSE. PIV x1- SLIV. Hawkins removed voiding well, hypoactive bowel tones, no BM, but this AM started passing flatus Orders to follow up on: Monitor abdominal distention and nausea. PO intake improved this sh ift but increased abdominal discomfort/acid reflux/hiccups. Last pain assessment/reassessment: patient with some pain this AM, given 5 of oxy at 1200 Psych/social issues: Supportive family, very involved in care help pt with all of ADLs Last patient visit (i.e. Falls/Activity/Comfort/Environment/Toileting/Skin): see Epic Anticipated or pending procedures: none. valuation - Max Coulter - 07/27/2010 4:57 AM PSTProblem: Fall/Trauma/Injury Risk (Adult) Goal: Fall/Trauma/Injury Risk: Absence of Trauma/Injury/Falls Outcome: Goal partially met Goals: 1. Prevent/Manage pain 2. Increase mobility while preventing falls 3. Prevent/Manage respiratory complications Interventions: 1. Assess pain Q4 hours and prn. Talk with pt about pain relief strategies, pain scale, and develop plan for the day. Administer pain medications per MD orders. Provide heat, cold, an d repositioning for pain relief per pt comfort. 2. Educate pt on benefits of increased activity OOB. Provide pt with adequate pain relief. Provide pt with activity assistance and mobility equipment prn. Initiate fall precautions pr n. 3. Assess respiratory status (rate, depth, SpO2) Q 4 hours and prn. Encourage use of IS, TC DB, and activity OOB. Provide adequate pain relief, provide pt with pillow and encourage spl inting prn. Wean supplemental O2 to keep SpO2 >92%. Interventions that worked/didn't work:patient free of pain this shift My recommendations forward:continue to encourage ambulation Patient Stability:Moderately Stable andoff Sarah Fuentes - 07/27/2010 4:56 AM PSTPrimary focus of stay: 07/23 exploratory laparotomy, cholecystect milind, resection of mesenteric lymphnode Pertinent physical findings: Hx of mesenteric mass, metastatic carcinoid tumor. Midline abd incision DENISSE. PIV x1- SLIV. Hawkins removed voiding well, hypoactive bowel tones, no BM, but this AM started passing flatus Orders to follow up on: Monitor abdominal distention and nausea. PO intake improved this sh ift but increased abdominal discomfort/acid reflux/hiccups. Last pain assessment/reassessment: patient with some pain this AM, given 5 of oxy at 0600 Psych/social issues: Supportive family, very involved in care help pt with all of ADLs Last patient visit (i.e. Falls/Activity/Comfort/Environment/Toileting/Skin): see Epic Anticipated or pending procedures: none. lan of Care Margarita Fuentes - 07/27/2010 12:24 AM PSTProblem: Fall/Trauma/Injury Risk (Adult) Goal: Fall/Trauma/Injury Risk: Absence of Trauma/Injury/Falls Outcome: Goal partially met Goals: 1. Prevent/Manage pain 2. Increase mobility while preventing falls 3. Prevent/Manage respiratory complications Interventions: 1. Assess pain Q4 hours and prn. Talk with pt about pain relief strategies, pain scale, and develop plan for the day. Administer pain medications per MD orders. Provide heat, cold, an d repositioning for pain relief per pt comfort. 2. Educate pt on benefits of increased activity OOB. Provide pt with adequate pain relief. Provide pt with activity assistance and mobility equipment prn. Initiate fall precautions pr n. 3. Assess respiratory status (rate, depth, SpO2) Q 4 hours and prn. Encourage use of IS, TC DB, and activity OOB. Provide adequate pain relief, provide pt with pillow and encourage spl inting prn. Wean supplemental O2 to keep SpO2 >92%. lan of [place] - Aneta Woods - 07/26/2010 12:04 PM PSTProblem: Case Management Goals Goal: Discharge Needs Met Outcome: Goal met Date Met: 07/26/10 CASE MANAGEMENT INITIAL ASSESSMENT Brief History: metastatic carcinoid tumor Reason For Admission: admit for scheduled surgery. Proc: exploratory laparoscopy, complex resection of mesenteric juliano mass, and open cholecystectomy. Pre-admission Living Situation: Lives in [place] with Family / Support System: , son Prior Functional Status: independent Prior Central Line Care: peripheral IV Transport Plans at DC: states that son is here and will drive them home Insurance: Medicare, [facility] Additional Needs Assessment: Met briefly with . Patient sleeping. Advancing diet. Sti ll has hawkins. Anticipate discharge to home with no case management needs. Patient has been ambulatory. Son will be driving them home. Aneta Avila RN, MSN Nurse Practitioner Physician Assistant [facility] [id number] [phone] Pager [phone] lan of [facility] - Mitzy Reeves RD - 07/26/2010 11:50 AM PSTProblem: Nutrition Interventions Intervention: Coordination of Nutrition Care -ADAT to Regular Encourage PO intake as ramo Will offer supplements prn -Cont checking lytes, replete prn -Bowel regimen -Will cont to monitor Comments: Phi Elaine is a 64 y.o. Male s/p ex lap, cholecystectomy, resection of mesenteric ly mph node on 07/23. PMH: mesenteric mass, metastatic carcinoid tumor Nutrition Dx: Pt with potential for inadequate protein-energy intake r/t recent surgery AEB pt currently on CL diet. Diet: (07/24) CL; PO intake: 1420mL fluids BM x 0; UOP: (07/25) 2700mL Pert Labs: (07/26) CO2-31, Gluc-128, Ca-8.5; (07/22) Alb-4.5 Pert Meds: D5/LR-IV, colace, compazine, zantac Ht: 69"; Wt: 100.5kg; BMI: 32.8; IBW: 72.7kg; AdjBW: 80kg Est Nutrition Needs: 2000-2400kcals (25-30kcals/kgAdjBW); 96-120gm protein (1.2-1.5gm/kgAdj BW) Mitzy Hernandez RD, LD #[id number] signed by Mitzy Hernandez RD at 011 11:55 AM PSTEvaluation - Yoli Jimenez RN - 07/26/2010 8:30 AM PSTProblem: Gen eral Plan of Care (Adult) Intervention: NPEOC Acute Goals: 1. Prevent/Manage pain 2. Increase mobility while preventing falls 3. Prevent/Manage respiratory complications Interventions: 1. Assess pain Q4 hours and prn. Talk with pt about pain relief strategies, pain scale, and develop plan for the day. Administer pain medications per MD orders. Provide heat, cold, an d repositioning for pain relief per pt comfort. 2. Educate pt on benefits of increased activity OOB. Provide pt with adequate pain relief. Provide pt with activity assistance and mobility equipment prn. Initiate fall precautions pr n. 3. Assess respiratory status (rate, depth, SpO2) Q 4 hours and prn. Encourage use of IS, TC DB, and activity OOB. Provide adequate pain relief, provide pt with pillow and encourage spl inting prn. Wean supplemental O2 to keep SpO2 >92%. Interventions that worked/didn't work:Pt complaining of abdominal pain with activity, pt we aned off of NURSE QUALITY to po pain medication. Pt stating pain well controlled with current prn medi cations. Pt motivated to get OOB, needing little encouragement for staff engineer to get up. Pt ambulating in hallway x 4 with family assistance. Pt up to chair x 4 during shift for >1 hour each. Pt encouraged to use TCDB, and use IS. Pt using IS appropriatly with RN encouragement. Pt w eaned off supplemental o2, SpO2 on RA = 92-94%. My recommendations forward:Continue with above interventions Patient Stability:Moderately Unstable lan of Care - Yoli Jimenez RN - 07/26/2010 8:29 AM PSTProblem: General Plan of Care (Adult) Intervention: NPEOC Acute Goals: 1. Prevent/Manage pain 2. Increase mobility while preventing falls 3. Prevent/Manage respiratory complications Interventions: 1. Assess pain Q4 hours and prn. Talk with pt about pain relief strategies, pain scale, and develop plan for the day. Administer pain medications per MD orders. Provide heat, cold, an d repositioning for pain relief per pt comfort. 2. Educate pt on benefits of increased activity OOB. Provide pt with adequate pain relief. Provide pt with activity assistance and mobility equipment prn. Initiate fall precautions pr n. 3. Assess respiratory status (rate, depth, SpO2) Q 4 hours and prn. Encourage use of IS, TC DB, and activity OOB. Provide adequate pain relief, provide pt with pillow and encourage spl inting prn. Wean supplemental O2 to keep SpO2 >92%. andoff - Bar Yoli Carter RN - 07/26/2010 8:28 AM PSTPrimary focus of stay: 07/23 exploratory lapa rotomy, cholecystectomy, resection of mesenteric lymphnode Pertinent physical findings: Hx of mesenteric mass, metastatic carcinoid tumor. Midline abd incision DENISSE. PIV x1- SLIV. Hawkins removed today voiding well Orders to follow up on: Monitor abdominal distention and nausea. PO intake improved this sh ift but increased abdominal discomfort/acid reflux/hiccups. Not passing flatus and hypoactiv e BT. Weaning to po pain meds Last pain assessment/reassessment: see epic Psych/social issues: Supportive family, very involved in care help pt with all of ADLs Last patient visit (i.e. Falls/Activity/Comfort/Environment/Toileting/Skin): see Epic Anticipated or pending procedures: none.Electronically signed by MIHIR Farah 07/26/2010 5:30 PM PSTEvaluation - Sharlene Quinn - 07/26/2010 5:48 AM PSTProblem: General Plan of Care (Adult) Goal: Individualization/Patient-Specific Goal Goals 1. Keep pain <4. Patient will increase activity today with ambulation tid and sitting in chair tid and ella ate comfortably. Interventions 1. Assist pt to ambulate tid and encourage meals in chair. 2. Encourage use of prn curb hop for pain management. 3. Assess pt for safety and fall risk with increased activity. 4. Encourage meals to help with building strength and encourage bowel function. Interventions that worked/didn't work:pain well controlled, up to chair x1 My recommendations forward:focus on nausea Patient Stability:Moderately Unstable andoff - Sharlene Quinn - 07/26/2010 5:47 AM PSTPrimary focus of stay: 07/23 exploratory laparotomy, chol ecystectomy, resection of mesenteric lymphnode Pertinent physical findings: Hx of mesenteric mass, metastatic carcinoid tumor. Midline abd incision CAFETERIA CASHIER. on Hydromorphone NURSE QUALITY 0.3 q6. PIV x1, MIVF. 3 LPM O2. Orders to follow up on: Monitor abdominal distention and nausea. PO intake improved this sh ift but increased abdominal discomfort. Not passing flatus and hypoactive BT. Hawkins replaced yesterday due to patient unable to void. Now adequate output. Last pain assessment/reassessment: Minimal pain with use of NURSE QUALITY , mainly with activity. Psych/social issues: Supportive family, positive outlook Last patient visit (i.e. Falls/Activity/Comfort/Environment/Toileting/Skin): see Epic Anticipated or pending procedures: none. lan of Care - Sharlene Sosa - 07/26/2010 12:46 AM PSTProblem: General Plan of Care (Adult) Goal: Individualization/Patient-Specific Goal Goals 1. Keep pain <4. Patient will increase activity today with ambulation tid and sitting in chair tid and ella ate comfortably. Interventions 1. Assist pt to ambulate tid and encourage meals in chair. 2. Encourage use of prn curb hop for pain management. 3. Assess pt for safety and fall risk with increased activity. 4. Encourage meals to help with building strength and encourage bowel function. andoff - Ashleigh Rosi cottrell - 07/25/2010 6:28 PM PSTPrimary focus of stay: 07/23 exploratory laparotomy, ch olecystectomy, resection of mesenteric lymphnode Pertinent physical findings: Hx of mesenteric mass, metastatic carcinoid tumor. Midline abd incision CAFETERIA CASHIER. on Hydromorphone NURSE QUALITY 0.3 q6. PIV x1, MIVF. 3 LPM O2. Orders to follow up on: Monitor abdominal distention and nausea. PO intake improved this sh ift but increased abdominal discomfort. Not passing flatus and hypoactive BT. Hawkins replaced at 8am due to patient unable to void. Now adequate output. Last pain assessment/reassessment: Minimal pain with use of NURSE QUALITY , mainly with activity. Psych/social issues: Supportive family, positive outlook Last patient visit (i.e. Falls/Activity/Comfort/Environment/Toileting/Skin): see Epic Anticipated or pending procedures: none. valuation - [facility] Rosi bryant - 07/25/2010 6:26 PM PSTProblem: General Plan of Care (Adult) Goal: Individualization/Patient-Specific Goal Goals 1. Patient will increase activity today with ambulation tid and sitting in chair tid and to lerate comfortably. Interventions 1. Assist pt to ambulate tid and encourage meals in chair. 2. Encourage use of prn curb hop for pain management. 3. Assess pt for safety and fall risk with increased activity. 4. Encourage meals to help with building strength and encourage bowel function. Interventions that worked/didn't work:Pt active with ambulation and sitting up in chair. Co ntinue use of prn curb hop. My recommendations forward:Monitor nausea and po intake. Abdomen distended. Reglan helpful for nausea. Patient Stability:Moderately Unstable lan of Care - [facility] patriciapauletteRosi - 07/25/2010 8:21 AM PSTProblem: General Plan of Care (Adult) Goal: Individualization/Patient-Specific Goal Goals 1. Patient will increase activity today with ambulation tid and sitting in chair tid and to lerate comfortably. Interventions 1. Assist pt to ambulate tid and encourage meals in chair. 2. Encourage use of prn curb hop for pain management. 3. Assess pt for safety and fall risk with increased activity. 4. Encourage meals to help with building strength and encourage bowel function. andoff - Adeola Miller - 07/24/2010 9:57 PM PSTPrimary focus of stay: 07/23 exploratory laparotomy, cholec ystectomy, resection of mesenteric lymphnode Pertinent physical findings: Hx of mesenteric mass, metastatic carcinoid tumor. Midline abd incision with dressing. on Hydromorphone NURSE QUALITY 0.3 q6. PIV x2, MIVF. 3 LPM O2. Orders to follow up on: Please encourage pt to eat. Ordered dinner for him, but PO intake t his shift has been poor. Hawkins out at 1200 but unable to void. Bladder scan amount at 1800 w as 139. 1L LR bolus given , another BC 297ml and 389ml- straight cath. @ 0330. Last pain assessment/reassessment: No pain with use of NURSE QUALITY Psych/social issues: Supportive family, positive outlook Last patient visit (i.e. Falls/Activity/Comfort/Environment/Toileting/Skin): see Epic Anticipated or pending procedures: valuation - Adeola Alvarez - 07/24/2010 9:56 PM PSTProblem: General Plan of Care (Adult) Goal: Individualization/Patient-Specific Goal Outcome: Complication absent and monitoring Goals: 1.Pt. will report pain <3/10 on pain scale. 2.Prevent infection. 3. Promote rest. Interventions: 1. Assess for pain Q3h and administer PRN pain meds. 2. Monitor VS and lab. results, promote good hygiene , encourage pulmonary toilet. 3. Cluster nursing and AGRICULTURAL EXTENSION OFFICER care to promote rest. Interventions that worked/didn't work:Frequent room checks and pain assessment q3h, vicky marcus RN and AGRICULTURAL EXTENSION OFFICER care My recommendations forward:continue plan Patient Stability:Moderately Unstable; lan of Care - Adeola Alvarez - 07/24/2010 9:54 PM PSTProblem: General Plan of Care (Adult) Goal: Individualization/Patient-Specific Goal Outcome: Complication absent and monitoring Goals: 1.Pt. will report pain <3/10 on pain scale. 2.Prevent infection. 3. Promote rest. Interventions: 1. Assess for pain Q3h and administer PRN pain meds. 2. Monitor VS and lab. results, promote good hygiene , encourage pulmonary toilet. 3. Cluster nursing and AGRICULTURAL EXTENSION OFFICER care to promote rest. valuation - Court Bain RN - 07/24/2010 7:47 PM PSTProblem: General Plan of Care (Adult) Intervention: NPEOC Acute Goals: 1. Pain will be well controlled on NURSE QUALITY 2. Pt will get out of bed this shift, up to chair, and ambulate in hallways. Interventions: 1. Frequently assess pain. Titrate NURSE QUALITY for better pain control. Ensure that pain is well controlled so that it is not a deterrent for pt to not ambulate. 2. Encourage and help pt to get out of bed and ambulate. Ensure that pain is w ell controlled. Explore any reasons pt may have for not wanting to ambulate. Discuss impor tance of ambulation after surgery for proper healing. Interventions that worked/didn't work:Pain was well controlled with current NURSE QUALITY setting of 0.3 q6. Pt uses pain button appropriately. Pt up to chair many times this shift, also ambul ated in hallways. Pt very motivated to get out of bed and ambulate. Pt understands the imp ortance of ambulation for proper post-op healing. My recommendations forward:Continue to promote ambulation and ensure pain is well controlle d. Patient Stability:Moderately Unstable lan of Care - Court Bain RN - 07/24/2010 7:47 PM PSTProblem: General Plan of Care (Adult) Intervention: NPEOC Acute Goals: 1. Pain will be well controlled on NURSE QUALITY 2. Pt will get out of bed this shift, up to chair, and ambulate in hallways. Interventions: 1. Frequently assess pain. Titrate NURSE QUALITY for better pain control. Ensure that pain is well controlled so that it is not a deterrent for pt to not ambulate. 2. Encourage and help pt to get out of bed and ambulate. Ensure that pain is w ell controlled. Explore any reasons pt may have for not wanting to ambulate. Discuss impor tance of ambulation after surgery for proper healing. Teri Thompson RN - 07/24/2010 7:41 PM PSTPrimary focus of stay: 07/23 exploratory laparotomy, cholecyste ctomy, resection of mesenteric lymphnode Pertinent physical findings: Hx of mesenteric mass, metastatic carcinoid tumor. Midline abd incision with dressing. on Hydromorphone NURSE QUALITY 0.3 q6. PIV x2, MIVF. 3 LPM O2. Orders to follow up on: Please encourage pt to eat. Ordered dinner for him, but PO intake t his shift has been poor. Hawkins out at 1200 but unable to void. Bladder scan amount at 1800 was 139. 1L LR bolus ordered and running over 2 hours. Please make sure pt voids or follow u p with bladder scan. Last pain assessment/reassessment: No pain with use of NURSE QUALITY Psych/social issues: Supportive family, positive outlook Last patient visit (i.e. Falls/Activity/Comfort/Environment/Toileting/Skin): 1899. Pt very motivated to get out of bed, up to chair, and walk. Anticipated or pending procedures: Adeola Frye - 07/24/2010 1:52 AM PSTNursing Handoff Report Primary focus of stay: exploratory laparotomy, cholecystectomy, resection of mesenteric lym phnode Pertinent physical findings: Hx of mesenteric mass, metastatic carcinoid tumor, on Hydromor phone NURSE QUALITY Orders to follow up on: Last pain assessment/reassessment:see Epic- use of NURSE QUALITY Psych/social issues: Last patient visit (i.e. Falls/Activity/Comfort/Environment/Toileting/Skin): see Epic Anticipated or pending procedures: valuation - Adeola Alvarez - 07/24/2010 1:43 AM PSTProblem: General Plan of C are (Adult) Goal: Individualization/Patient-Specific Goal Outcome: Complication absent and monitoring Goals: 1.Pt. will report pain <3/10 on pain scale. 2.Prevent infection. 3. Promote rest. Interventions: 1. Assess for pain Q3h and administer PRN pain meds. 2. Monitor VS and lab. results, promote good hygiene , encourage pulmonary toilet. 3. Cluster nursing and AGRICULTURAL EXTENSION OFFICER care to promote rest. Interventions that worked/didn't work:Frequent room checks and pain assessment q3h. My recommendations forward:continue plan Patient Stability:Moderately Unstable;Electronically signed by Adeola Alvarez at 1 5:25 AM PSTPlan of Care - Adeola Alvarez - 07/24/2010 1:42 AM PSTProblem: General Plan of Care (Adult) Goal: Individualization/Patient-Specific Goal Outcome: Complication absent and monitoring Goals: 1.Pt. will report pain <3/10 on pain scale. 2.Prevent infection. 3. Promote rest. Interventions: 1. Assess for pain Q3h and administer PRN pain meds. 2. Monitor VS and lab. results, promote good hygiene , encourage pulmonary toilet. 3. Cluster nursing and AGRICULTURAL EXTENSION OFFICER care to promote rest. andoff - Jelena Damon - 07/23/2010 7:43 PM PSTSurgical procedure ex lap; mesenteric resexn; cholecystectomy Length of procedure: Time Entered Room 1444 Time Left Room 1820 Surgical diagnosis: Carcinoid Tumor of Small Intestine Medical history pertinent to surgery: See EPIC notes Major deviations/events or pertinent findings of perioperative stay: None Surgeon:Khadijah Type(s) of anesthesia:GA OR positioning: Supine N/V status: None Last void: Hawkins Last pain medication given: Pain medication totals: Dilaudid NURSE QUALITY 0.1 mg q 6 min. Additional pain medication information: NURSE QUALITY Mental health/psychosocial: None Language/sensory issues: None Family: Family/Home Transport: In [facility] Waiting Room (07/23/10899) Contact Name: Caroline (07/23/10899) Contact Number: Son [phone], (07/23/10899) Family contacted: [id number] to [facility] room. Anticipated post-op needs/devices/follow up: None For fluid replacement, EBL, and antibiotics administered in OR: SEE ANESTHESIA RECORDElectr onically signed by Darinel Damon at 07/23/2010 8:20 PM PSTScan Taya Owens, Faculty - 011 4:51 PM PST can Taya Owens Faculty - 07/22/2010 10:32 PM PST can Taya Owens, Faculty - 07/22/2010 3:43 PM PST documented in this encou nter Plan of Treatment Not on filedocumented as of this encounter Procedures + +--------+ + + + | Procedure Name | Priori | Date/Time | Associated Diagnosis | Comments | | | ty | | | | + +--------+ + + + | PROCEDURE NOTE | Routin | 07/03/2015 | | Results for this | | | e | 7:24 AM | | procedure are in the | | | | PST | | results section. | + +--------+ + + + | BASIC METABOLIC SET | Urgent | 07/28/2010 | | Results for this | | (NA, K, CL, TCO2, | | 6:35 AM | | procedure are in the | | BUN, CR, GLU, CA) | | PST | | results section. | + +--------+ + + + | CBC ONLY | Urgent | 07/28/2010 | | Results for this | | | | 6:35 AM | | procedure are in the | | | | PST | | results section. | + +--------+ + + + | RESP CARE THERAPY | Routin | 07/28/2010 | | Results for this | | | e | 4:47 AM | | procedure are in the | | | | PST | | results section. | + +--------+ + + + | BASIC METABOLIC SET | Urgent | 07/27/2010 | | Results for this | | (NA, K, CL, TCO2, | | 6:00 AM | | procedure are in the | | BUN, CR, GLU, CA) | | PST | | results section. | + +--------+ + + + | CBC ONLY | Urgent | 07/27/2010 | | Results for this | | | | 6:00 AM | | procedure are in the | | | | PST | | results section. | + +--------+ + + + | RESP CARE THERAPY | Routin | 07/27/2010 | | Results for this | | | e | 12:11 AM | | procedure are in the | | | | PST | | results section. | + +--------+ + + + | BASIC METABOLIC SET | Urgent | 07/26/2010 | | Results for this | | (NA, K, CL, TCO2, | | 5:34 AM | | procedure are in the | | BUN, CR, GLU, CA) | | PST | | results section. | + +--------+ + + + | CBC ONLY | Urgent | 07/26/2010 | | Results for this | | | | 5:34 AM | | procedure are in the | | | | PST | | results section. | + +--------+ + + + | RESP CARE THERAPY | Routin | 07/26/2010 | | Results for this | | | e | 4:13 AM | | procedure are in the | | | | PST | | results section. | + +--------+ + + + | BASIC METABOLIC SET | Urgent | 07/25/2010 | | Results for this | | (NA, K, CL, TCO2, | | 5:03 AM | | procedure are in the | | BUN, CR, GLU, CA) | | PST | | results section. | + +--------+ + + + | CBC ONLY | Urgent | 07/25/2010 | | Results for this | | | | 5:03 AM | | procedure are in the | | | | PST | | results section. | + +--------+ + + + | RESP CARE THERAPY | Routin | 07/25/2010 | | Results for this | | | e | 3:03 AM | | procedure are in the | | | | PST | | results section. | + +--------+ + + + | UA, DIPSTICK ONLY | Routin | 07/24/2010 | | Results for this | | | e | 9:25 AM | | procedure are in the | | | | PST | | results section. | + +--------+ + + + | URINE, MICROSCOPIC | Routin | 07/24/2010 | | Results for this | | EXAM | e | 9:25 AM | | procedure are in the | | | | PST | | results section. | + +--------+ + + + | URINE SCREEN FOR | Routin | 07/24/2010 | | Results for this | | CULTURE | e | 9:25 AM | | procedure are in the | | | | PST | | results section. | + +--------+ + + + | RESP CARE THERAPY | Routin | 07/24/2010 | | Results for this | | | e | 7:18 AM | | procedure are in the | | | | PST | | results section. | + +--------+ + + + | BASIC METABOLIC SET | Urgent | 07/24/2010 | | Results for this | | (NA, K, CL, TCO2, | | 5:20 AM | | procedure are in the | | BUN, CR, GLU, CA) | | PST | | results section. | + +--------+ + + + | CBC ONLY | Urgent | 07/24/2010 | | Results for this | | | | 5:20 AM | | procedure are in the | | | | PST | | results section. | + +--------+ + + + | ANESTHESIA/SEDATION | | 07/23/2010 | | Results for this | | | | 12:00 AM | | procedure are in the | | | | PST | | results section. | + +--------+ + + + | OPERATION RECORD | | 07/23/2010 | | Results for this | | | | 12:00 AM | | procedure are in the | | | | PST | | results section. | + +--------+ + + + documented in this encounter Results PROCEDURE NOTE (07/03/2015 7:24 AM PST)CBC ONLY (07/28/2010 6:35 AM PST) + + + + + + | Component | Value | Ref Range | Performed | Pathologist | | | | | At | Signature | + + + + + + | WHITE CELL | 6.6 | 4.4 - 11.0 K/cu | [facility] | | | COUNT | | mm | DEPARTMENT | | | | | | OF | | | | | | PATHOLOGY | | + + + + + + | RED CELL | 4.42 (L) | 4.50 - 5.90 | [facility] | | | COUNT | | M/cu mm | DEPARTMENT | | | | | | OF | | | | | | PATHOLOGY | | + + + + + + | HEMOGLOBIN | 13.2 (L) | 13.5 - 17.5 | [facility] | | | | | g/dL | DEPARTMENT | | | | | | OF | | | | | | PATHOLOGY | | + + + + + + | HEMATOCRIT | 38.8 (L) | 41.0 - 53.0 % | [facility] | | | | | | DEPARTMENT | | | | | | OF | | | | | | PATHOLOGY | | + + + + + + | MCV | 87.8 | 80.0 - 96.0 fL | [facility] | | | | | | DEPARTMENT | | | | | | OF | | | | | | PATHOLOGY | | + + + + + + | MCHC | 34.1 | 33.4 - 35.5 | [facility] | | | | | g/dL | DEPARTMENT | | | | | | OF | | | | | | PATHOLOGY | | + + + + + + | RDW | 14.1 | 11.5 - 15.0 % | [facility] | | | | | | DEPARTMENT | | | | | | OF | | | | | | PATHOLOGY | | + + + + + + | PLATELET | 232 | 150 - 400 K/cu | [facility] [...] + + + + + | [facility] | [address] | [place] [address] | | | PATHOLOGY | [address] | | | + + + + + BASIC METABOLIC SET (NA, K, CL, TCO2, BUN, CR, GLU, CA) (07/28/2010 6:35 AM PST) + + + + + + | Component | Value | Ref Range | Performed | Pathologist | | | | | At | Signature | + + + + + + | GLUCOSE, | 99 | 60 - 99 mg/dL | [facility] | | | PLASMA | | | DEPARTMENT | | | (LAB) | | | OF | | | | | | PATHOLOGY | | + + + + + + | BUN, PLASMA | 10 | 6 - 20 mg/dL | [facility] | | | (LAB) | | | DEPARTMENT | | | | | | OF | | | | | | PATHOLOGY | | + + + + + + | CREATININE | 1.03 | 0.70 - 1.30 | [facility] | | | PLASMA | | mg/dL | DEPARTMENT | | | (LAB) | | | OF | | | | | | PATHOLOGY | | + + + + + + | SODIUM, | 138 | 134 - 143 | [facility] | | | PLASMA | | mmol/L | DEPARTMENT | | | (LAB) | | | OF | | | | | | PATHOLOGY | | + + + + + + | POTASSIUM, | 3.8 | 3.4 - 5.0 | [facility] | | | PLASMA | | mmol/L | DEPARTMENT | | | (LAB) | | | OF | | | | | | PATHOLOGY | | + + + + + + | CHLORIDE, | 103 | 97 - 108 mmol/L | [facility] | | | PLASMA | | | DEPARTMENT | | | (LAB) | | | OF | | | | | | PATHOLOGY | | + + + + + + | TOTAL CO2, | 27Comment: New Total | 22 - 29 mmol/L | [facility] | | | PLASMA | CO2 reference range | | DEPARTMENT | | | (LAB) | effective 04/20/10. | | OF | | | | | | PATHOLOGY | | + + + + + + | CALCIUM, | 8.7 | 8.6 - 10.2 | [facility] | [...] | + + + + + | [facility] | [address] | [place] [address] | | | PATHOLOGY | [address] | | | + + + + + RESP CARE THERAPY (07/28/2010 4:47 AM PST) + + + + +- + | Component | Value | Ref Range | Performed | Pathologist | | | | | At | Signature | + + + + +- + | RESPIRATORY | Oxygen device on | | [facility] | | | CARE | standby, nasal canula. | | RESPIRATORY | | | | Electronically | | THERAPY | | | | Signed by: Guy | | | | | | BRIANA Cunha | | | | | | | | | | | | | | | | | | | | | | | | | | | | | |Electronically Signed by: Guy Cunha RCP | | | | + + + + +- + + + | Specimen | + + | | + + + + + + + | Performing | Address | City/State/Zipcode | Phone Number | | Organization | | | | + + + + + | [facility] | [address] | [place], [place] | | | THERAPY | [address] | [address] | | + + + + + CBC ONLY (07/27/2010 6:00 AM PST) + + + + + + | Component | Value | Ref Range | Performed | Pathologist | | | | | At | Signature | + + + + + + | WHITE CELL | 6.2 | 4.4 - 11.0 K/cu | [facility] | | | COUNT | | mm | DEPARTMENT | | | | | | OF | | | | | | PATHOLOGY | | + + + + + + | RED CELL | 4.15 (L) | 4.50 - 5.90 | [facility] | | | COUNT | | M/cu mm | DEPARTMENT | | | | | | OF | | | | | | PATHOLOGY | | + + + + + + | HEMOGLOBIN | 12.6 (L) | 13.5 - 17.5 | [facility] | | | | | g/dL | DEPARTMENT | | | | | | OF | | | | | | PATHOLOGY | | + + + + + + | HEMATOCRIT | 36.2 (L) | 41.0 - 53.0 % | [facility] | | | | | | DEPARTMENT | | | | | | OF | | | | | | PATHOLOGY | | + + + + + + | MCV | 87.2 | 80.0 - 96.0 fL | [facility] | | | | | | DEPARTMENT | | | | | | OF | | | | | | PATHOLOGY | | + + + + + + | MCHC | 34.8 | 33.4 - 35.5 | [facility] | | | | | g/dL | DEPARTMENT | | | | | | OF | | | | | | PATHOLOGY | | + + + + + + | RDW | 14.5 | 11.5 - 15.0 % | [facility] | | | | | | DEPARTMENT | | | | | | OF | | | | | | PATHOLOGY | | + + + + + + | PLATELET | 186 | 150 - 400 K/cu | [facility] [...] + + + + + | [facility] | [address] | [place] [address] | | | PATHOLOGY | [address] | | | + + + + + BASIC METABOLIC SET (NA, K, CL, TCO2, BUN, CR, GLU, CA) (07/27/2010 6:00 AM PST) + + + + + + | Component | Value | Ref Range | Performed | Pathologist | | | | | At | Signature | + + + + + + | GLUCOSE, | 96 | 60 - 99 mg/dL | [facility] | | | PLASMA | | | DEPARTMENT | | | (LAB) | | | OF | | | | | | PATHOLOGY | | + + + + + + | BUN, PLASMA | 9 | 6 - 20 mg/dL | [facility] | | | (LAB) | | | DEPARTMENT | | | | | | OF | | | | | | PATHOLOGY | | + + + + + + | CREATININE | 1.04 | 0.70 - 1.30 | [facility] | | | PLASMA | | mg/dL | DEPARTMENT | | | (LAB) | | | OF | | | | | | PATHOLOGY | | + + + + + + | SODIUM, | 136 | 134 - 143 | [facility] | | | PLASMA | | mmol/L | DEPARTMENT | | | (LAB) | | | OF | | | | | | PATHOLOGY | | + + + + + + | POTASSIUM, | 3.2 (L) | 3.4 - 5.0 | [facility] | | | PLASMA | | mmol/L | DEPARTMENT | | | (LAB) | | | OF | | | | | | PATHOLOGY | | + + + + + + | CHLORIDE, | 103 | 97 - 108 mmol/L | [facility] | | | PLASMA | | | DEPARTMENT | | | (LAB) | | | OF | | | | | | PATHOLOGY | | + + + + + + | TOTAL CO2, | 26Comment: New Total | 22 - 29 mmol/L | [facility] | | | PLASMA | CO2 reference range | | DEPARTMENT | | | (LAB) | effective 04/20/10. | | OF | | | | | | PATHOLOGY | | + + + + + + | CALCIUM, | 8.4 (L) | 8.6 - 10.2 | [facility] | | | PLASMA | | mg/dL | DEPARTMENT | | | (LAB) | | | OF | | | | | | PATHOLOGY | | + + + + + + | ANION GAP | 7 | 4 - 11 mmol/L | [facility] [...] | + + + + + | [facility] | [address] | [place] [address] | | | PATHOLOGY | [address] | | | + + + + + RESP CARE THERAPY (07/27/2010 12:11 AM PST) + + + + +----- ---------+ | Component | Value | Ref Range | Performed | Path ologist | | | | | At | Sign ature | + + + + +----- ---------+ | RESPIRATORY | Nasal cannula at 3 LPM. | | [facility] | | | CARE | Electronically | | RESPIRATORY | | | | Signed by: Berkley | | THERAPY | | | | BRIANA Meehan | | | | | | | | | | | | | | | | | | | | | | | | | | | | | | | | | | | |Electronically Signed by: Berkley Meehan RCP | | | | + + + + +----- ---------+ + + | Specimen | + + | | + + + + + + + | Performing | Address | City/State/Zipcode | Phone Number | | Organization | | | | + + + + + | [facility] | [address] | [place], [place] | | | THERAPY | [address] | [address] | | + + + + + CBC ONLY (07/26/2010 5:34 AM PST) + + + + + + | Component | Value | Ref Range | Performed | Pathologist | | | | | At | Signature | + + + + + + | WHITE CELL | 6.2 | 4.4 - 11.0 K/cu | [facility] | | | COUNT | | mm | DEPARTMENT | | | | | | OF | | | | | | PATHOLOGY | | + + + + + + | RED CELL | 3.79 (L) | 4.50 - 5.90 | [facility] | | | COUNT | | M/cu mm | DEPARTMENT | | | | | | OF | | | | | | PATHOLOGY | | + + + + + + | HEMOGLOBIN | 11.6 (L) | 13.5 - 17.5 | [facility] | | | | | g/dL | DEPARTMENT | | | | | | OF | | | | | | PATHOLOGY | | + + + + + + | HEMATOCRIT | 33.3 (L) | 41.0 - 53.0 % | [facility] | | | | | | DEPARTMENT | | | | | | OF | | | | | | PATHOLOGY | | + + + + + + | MCV | 88.0 | 80.0 - 96.0 fL | [facility] | | | | | | DEPARTMENT | | | | | | OF | | | | | | PATHOLOGY | | + + + + + + | MCHC | 34.9 | 33.4 - 35.5 | [facility] | | | | | g/dL | DEPARTMENT | | | | | | OF | | | | | | PATHOLOGY | | + + + + + + | RDW | 13.9 | 11.5 - 15.0 % | [facility] | | | | | | DEPARTMENT | | | | | | OF | | | | | | PATHOLOGY | | + + + + + + | PLATELET | 150 | 150 - 400 K/cu | [facility] [...] | + + + + + | [facility] | [address] | [place] [address] | | | PATHOLOGY | [address] | | | + + + + + BASIC METABOLIC SET (NA, K, CL, TCO2, BUN, CR, GLU, CA) (07/26/2010 5:34 AM PST) + + + + + + | Component | Value | Ref Range | Performed | Pathologist | | | | | At | Signature | + + + + + + | GLUCOSE, | 128 (H) | 60 - 99 mg/dL | [facility] | | | PLASMA | | | DEPARTMENT | | | (LAB) | | | OF | | | | | | PATHOLOGY | | + + + + + + | BUN, PLASMA | 8 | 6 - 20 mg/dL | [facility] | | | (LAB) | | | DEPARTMENT | | | | | | OF | | | | | | PATHOLOGY | | + + + + + + | CREATININE | 0.94 | 0.70 - 1.30 | [facility] | | | PLASMA | | mg/dL | DEPARTMENT | | | (LAB) | | | OF | | | | | | PATHOLOGY | | + + + + + + | SODIUM, | 136 | 134 - 143 | [facility] | | | PLASMA | | mmol/L | DEPARTMENT | | | (LAB) | | | OF | | | | | | PATHOLOGY | | + + + + + + | POTASSIUM, | 3.8 | 3.4 - 5.0 | [facility] | | | PLASMA | | mmol/L | DEPARTMENT | | | (LAB) | | | OF | | | | | | PATHOLOGY | | + + + + + + | CHLORIDE, | 101 | 97 - 108 mmol/L | [facility] | | | PLASMA | | | DEPARTMENT | | | (LAB) | | | OF | | | | | | PATHOLOGY | | + + + + + + | TOTAL CO2, | 31 (H)Comment: New | 22 - 29 mmol/L | [facility] | | | PLASMA | Total CO2 reference | | DEPARTMENT | | | (LAB) | range effective | | OF | | | | 04/20/10. | | PATHOLOGY | | + + + + + + | CALCIUM, | 8.3 (L) | 8.6 - 10.2 | [facility] | | | PLASMA | | mg/dL | DEPARTMENT | | | (LAB) | | | OF | | | | | | PATHOLOGY | | + + + + + + | ANION GAP | 4 | 4 - 11 mmol/L | [facility] [...] | + + + + + | [facility] | [address] | [place] [address] | | | PATHOLOGY | [address] | | | + + + + + RESP CARE THERAPY (07/26/2010 4:13 AM PST) + + + + +-- + | Component | Value | Ref Range | Performed | P athologist | | | | | At | S ignature | + + + + +-- + | RESPIRATORY | Nasal cannula at 3 LPM. | | [facility] | | | CARE | Electronically | | RESPIRATORY | | | | Signed by: Arturo Andrade | THERAPY | | | | BRIANA Pfeiffer | | | | | | | | | | | | | | | | | | | | | | | | | | | | | | | | | | | |Electronically Signed by: Arturo Pfeiffer RCP | | | | + + + + +-- + + + | Specimen | + + | | + + + + + + + | Performing | Address | City/State/Zipcode | Phone Number | | Organization | | | | + + + + + | [facility] | [address] | [place], [place] | | | THERAPY | [address] | [address] | | + + + + + CBC ONLY (07/25/2010 5:03 AM PST) + + + + + + | Component | Value | Ref Range | Performed | Pathologist | | | | | At | Signature | + + + + + + | WHITE CELL | 8.6 | 4.4 - 11.0 K/cu | [facility] | | | COUNT | | mm | DEPARTMENT | | | | | | OF | | | | | | PATHOLOGY | | + + + + + + | RED CELL | 3.86 (L) | 4.50 - 5.90 | [facility] | | | COUNT | | M/cu mm | DEPARTMENT | | | | | | OF | | | | | | PATHOLOGY | | + + + + + + | HEMOGLOBIN | 11.7 (L) | 13.5 - 17.5 | [facility] | | | | | g/dL | DEPARTMENT | | | | | | OF | | | | | | PATHOLOGY | | + + + + + + | HEMATOCRIT | 34.0 (L) | 41.0 - 53.0 % | [facility] | | | | | | DEPARTMENT | | | | | | OF | | | | | | PATHOLOGY | | + + + + + + | MCV | 88.0 | 80.0 - 96.0 fL | [facility] | | | | | | DEPARTMENT | | | | | | OF | | | | | | PATHOLOGY | | + + + + + + | MCHC | 34.5 | 33.4 - 35.5 | [facility] | | | | | g/dL | DEPARTMENT | | | | | | OF | | | | | | PATHOLOGY | | + + + + + + | RDW | 14.2 | 11.5 - 15.0 % | [facility] | | | | | | DEPARTMENT | | | | | | OF | | | | | | PATHOLOGY | | + + + + + + | PLATELET | 158 | 150 - 400 K/cu | [facility] [...] + + + + | [facility] | [address] | [place] [address] | | | PATHOLOGY | [address] | | | + + + + + BASIC METABOLIC SET (NA, K, CL, TCO2, BUN, CR, GLU, CA) (07/25/2010 5:03 AM PST) + + + + + + | Component | Value | Ref Range | Performed | Pathologist | | | | | At | Signature | + + + + + + | GLUCOSE, | 140 (H) | 60 - 99 mg/dL | [facility] | | | PLASMA | | | DEPARTMENT | | | (LAB) | | | OF | | | | | | PATHOLOGY | | + + + + + + | BUN, PLASMA | 14 | 6 - 20 mg/dL | [facility] | | | (LAB) | | | DEPARTMENT | | | | | | OF | | | | | | PATHOLOGY | | + + + + + + | CREATININE | 0.96 | 0.70 - 1.30 | [facility] | | | PLASMA | | mg/dL | DEPARTMENT | | | (LAB) | | | OF | | | | | | PATHOLOGY | | + + + + + + | SODIUM, | 134 | 134 - 143 | [facility] | | | PLASMA | | mmol/L | DEPARTMENT | | | (LAB) | | | OF | | | | | | PATHOLOGY | | + + + + + + | POTASSIUM, | 4.3 | 3.4 - 5.0 | [facility] | | | PLASMA | | mmol/L | DEPARTMENT | | | (LAB) | | | OF | | | | | | PATHOLOGY | | + + + + + + | CHLORIDE, | 99 | 97 - 108 mmol/L | [facility] | | | PLASMA | | | DEPARTMENT | | | (LAB) | | | OF | | | | | | PATHOLOGY | | + + + + + + | TOTAL CO2, | 31 (H)Comment: New | 22 - 29 mmol/L | [facility] | | | PLASMA | Total CO2 reference | | DEPARTMENT | | | (LAB) | range effective | | OF | | | | 04/20/10. | | PATHOLOGY | | + + + + + + | CALCIUM, | 8.4 (L) | 8.6 - 10.2 | [facility] | | | PLASMA | | mg/dL | DEPARTMENT | | | (LAB) | | | OF | | | | | | PATHOLOGY | | + + + + + + | ANION GAP | 4 | 4 - 11 mmol/L | [facility] [...] | + + + + + | [facility] | [address] | [place] [address] | | | PATHOLOGY | [address] | | | + + + + + RESP CARE THERAPY (07/25/2010 3:03 AM PST) + + + + +-- + | Component | Value | Ref Range | Performed | P athologist | | | | | At | S ignature | + + + + +-- + | RESPIRATORY | Nasal cannula at 3 LPM. | | [facility] | | | CARE | Electronically | | RESPIRATORY | | | | Signed by: Arturo Andrade | EDWINA | | | | BRIANA Pfeiffer | | | | | | | | | | | | | | | | | | | | | | | | | | | | | | | | | | | |Electronically Signed by: Arturo Pfeiffer RCP | | | | + + + + +-- + + + | Specimen | + + | | + + + + + + + | Performing | Address | City/State/Zipcode | Phone Number | | Organization | | | | + + + + + | [facility] | [address] | [place], [place] | | | THERAPY | [address] | [address] | | + + + + + UA, DIPSTICK ONLY (07/24/2010 9:25 AM PST) + + + + + + | Component | Value | Ref Range | Performed | Pathologist | | | | | At | Signature | + + + + + + | COLOR(UR) | Yellow | | [facility] | | | | | | DEPARTMENT | | | | | | OF | | | | | | PATHOLOGY | | + + + + + + | APPEARANCE | Clear | | [facility] | | | | | | DEPARTMENT | | | | | | OF | | | | | | PATHOLOGY | | + + + + + + | GLUCOSE(UR) | Negative | mg/dL | [facility] | | | | | | DEPARTMENT | | | | | | OF | | | | | | PATHOLOGY | | + + + + + + | BILIRUBIN | Negative | | [facility] | | | | | | DEPARTMENT | | | | | | OF | | | | | | PATHOLOGY | | + + + + + + | KETONES | Negative | mg/dL | [facility] | | | | | | DEPARTMENT | | | | | | OF | | | | | | PATHOLOGY | | + + + + + + | SPECIFIC | >=1.030 (A) | 1.005 - 1.030 | [facility] | | | GRAVITY | | | DEPARTMENT | | | | | | OF | | | | | | PATHOLOGY | | + + + + + + | BLOOD | Trace (A) | | [facility] | | | | | | DEPARTMENT | | | | | | OF | | | | | | PATHOLOGY | | + + + + + + | PH(UR) | 6.0 | 5.0 - 8.0 | [facility] | | | | | | DEPARTMENT | | | | | | OF | | | | | | PATHOLOGY | | + + + + + + | PROTEIN(LAB | Trace (A) | mg/dL | [facility] | | | ) | | | DEPARTMENT | | | | | | OF | | | | | | PATHOLOGY | | + + + + + + | UROBILINOGE | 0.2 | 0 - 0.2 HUGH | [facility] | | | N | | UNITS | DEPARTMENT | | | | | | OF | | | | | | PATHOLOGY | | + + + + + + | NITRITES | Negative | Negative | [facility] | | | | | | DEPARTMENT | | | | | | OF | | | | | | PATHOLOGY | | + + + + + + | LEUKOCYTE | Negative | Negative | [facility] | | | ESTERASE | | | DEPARTMENT | | | | | | OF | | | | | | PATHOLOGY | | + + + + + + + + | Specimen | + + | Urine - Urine | + + + + + + + | Performing | Address | City/State/Zipcode | Phone Number | | Organization | | | | + + + + + | [facility] | [address] | [place] [address] | | | PATHOLOGY | [address] | | | + + + + + URINE, MICROSCOPIC EXAM (07/24/2010 9:25 AM PST) + + + + + + | Component | Value | Ref Range | Performed | Pathologist | | | | | At | Signature | + + + + + + | SQUAMOUS | None | /hpf | [facility] | | | EPITHELIAL | | | DEPARTMENT | | | | | | OF | | | | | | PATHOLOGY | | + + + + + + | NON-SQUAMOU | None | /hpf | [facility] | | | S EPITH | | | DEPARTMENT | | | | | | OF | | | | | | PATHOLOGY | | + + + + + + | RED CELLS | 0-1 | 0 - 3 /hpf | [facility] | | | | | | DEPARTMENT | | | | | | OF | | | | | | PATHOLOGY | | + + + + + + | WHITE CELLS | 1-3 | 0 - 5 /hpf | [facility] | | | | | | DEPARTMENT | | | | | | OF | | | | | | PATHOLOGY | | + + + + + + | BACTERIA | None | /hpf | [facility] | | | | | | DEPARTMENT | | | | | | OF | | | | | | PATHOLOGY | | + + + + + + | MUCOUS | Few (A) | /hpf | [facility] | | | | | | DEPARTMENT | | | | | | OF | | | | | | PATHOLOGY | | + + + + + + | HYALINE | None | 0 - 1 /lpf | [facility] | | | CASTS | | | DEPARTMENT | | | | | | OF | | | | | | PATHOLOGY | | + + + + + + | GRANULAR | None | /lpf | [facility] | | | CASTS | | | DEPARTMENT | | | | | | OF | | | | | | PATHOLOGY | | + + + + + + | CELLULAR | None | /lpf | [facility] | | | CASTS | | | DEPARTMENT | | | | | | OF | | | | | | PATHOLOGY | | + + + + + + | AMORPHOUS | Moderate (A) | /hpf | [facility] | | | CRYSTALS | | | DEPARTMENT | | | | | | OF | | | | | | PATHOLOGY | | + + + + + + | CALCIUM | None | /hpf | [facility] | | | OXALATE | | | DEPARTMENT | | | KENDAL | | | OF | | | | | | PATHOLOGY | | + + + + + + | URIC ACID | None | /hpf | [facility] | | | CRYSTALS | | | DEPARTMENT | | | | | | OF | | | | | | PATHOLOGY | | + + + + + + | TRIPLE P04 | None | /hpf | [facility] | | | CRYSTALS | | | DEPARTMENT | | | | | | OF | | | | | | PATHOLOGY | | + + + + + + | YEAST (LAB) | None | /hpf | [facility] | | | | | | DEPARTMENT | | | | | | OF | | | | | | PATHOLOGY | | + + + + + + | TRICHOMONAS | None | /hpf | [facility] | | | | | | DEPARTMENT | | | | | | OF | | | | | | PATHOLOGY | | + + + + + + + + | Specimen | + + | Urine - Urine | + + + + + + + | Performing | Address | City/State/Zipcode | Phone Number | | Organization | | | | + + + + + | [facility] | [address] | [place] [address] | | | PATHOLOGY | [address] | | | + + + + + URINE SCREEN FOR CULTURE (07/24/2010 9:25 AM PST) + + + + + + | Component | Value | Ref Range | Performed | Pathologist | | | | | At | Signature | + + + + + + | CULT, URINE | Negative for Nitrite and | | [facility] | | | SCREEN | Leukocyte | | DEPARTMENT | | | | Esterase.Culture not | | OF | | | | indicated. | | PATHOLOGY | | + + + + + + + + | Specimen | + + | Urine - Urine | + + + + + + + | Performing | Address | City/State/Zipcode | Phone Number | | Organization | | | | + + + + + | [facility] | [address] | [place] [address] | | | PATHOLOGY | [address] | | | + + + + + RESP CARE THERAPY (07/24/2010 7:18 AM PST) + + + + +------ --------+ | Component | Value | Ref Range | Performed | Patho logist | | | | | At | Signa ture | + + + + +------ --------+ | RESPIRATORY | Oxygen device on | | [facility] | | | CARE | standby, nasal canula. | | RESPIRATORY | | | | Electronically | | THERAPY | | | | Signed by: Cisco Chávez, | | | | | | SURVEYOR ROD HELPER | | | | | | | | | | | | | | | | | | | | | | | | | | | | | |Electronically Signed by: Cisco Chávez RCP | | | | + + + + +------ --------+ + + | Specimen | + + | | + + + + + + + | Performing | Address | City/State/Zipcode | Phone Number | | Organization | | | | + + + + + | [facility] | [address] | [place], [place] | | | THERAPY | [address] | [phone] | | + + + + + CBC ONLY (07/24/2010 5:20 AM PST) + + + + + + | Component | Value | Ref Range | Performed | Pathologist | | | | | At | Signature | + + + + + + | WHITE CELL | 10.8 | 4.4 - 11.0 K/cu | [facility] | | | COUNT | | mm | DEPARTMENT | | | | | | OF | | | | | | PATHOLOGY | | + + + + + + | RED CELL | 4.41 (L) | 4.50 - 5.90 | [facility] | | | COUNT | | M/cu mm | DEPARTMENT | | | | | | OF | | | | | | PATHOLOGY | | + + + + + + | HEMOGLOBIN | 13.4 (L) | 13.5 - 17.5 | [facility] | | | | | g/dL | DEPARTMENT | | | | | | OF | | | | | | PATHOLOGY | | + + + + + + | HEMATOCRIT | 38.6 (L) | 41.0 - 53.0 % | [facility] | | | | | | DEPARTMENT | | | | | | OF | | | | | | PATHOLOGY | | + + + + + + | MCV | 87.4 | 80.0 - 96.0 fL | [facility] | | | | | | DEPARTMENT | | | | | | OF | | | | | | PATHOLOGY | | + + + + + + | MCHC | 34.6 | 33.4 - 35.5 | [facility] | | | | | g/dL | DEPARTMENT | | | | | | OF | | | | | | PATHOLOGY | | + + + + + + | RDW | 14.2 | 11.5 - 15.0 % | [facility] | | | | | | DEPARTMENT | | | | | | OF | | | | | | PATHOLOGY | | + + + + + + | PLATELET | 191 | 150 - 400 K/cu | [facility] [...] | + + + + + | [facility] | [address] | [place] [address] | | | PATHOLOGY | [address] | | | + + + + + BASIC METABOLIC SET (NA, K, CL, TCO2, BUN, CR, GLU, CA) (07/24/2010 5:20 AM PST) + + + + + + | Component | Value | Ref Range | Performed | Pathologist | | | | | At | Signature | + + + + + + | GLUCOSE, | 152 (H) | 60 - 99 mg/dL | [facility] | | | PLASMA | | | DEPARTMENT | | | (LAB) | | | OF | | | | | | PATHOLOGY | | + + + + + + | BUN, PLASMA | 16 | 6 - 20 mg/dL | [facility] | | | (LAB) | | | DEPARTMENT | | | | | | OF | | | | | | PATHOLOGY | | + + + + + + | CREATININE | 1.19 | 0.70 - 1.30 | [facility] | | | PLASMA | | mg/dL | DEPARTMENT | | | (LAB) | | | OF | | | | | | PATHOLOGY | | + + + + + + | SODIUM, | 136 | 134 - 143 | [facility] | | | PLASMA | | mmol/L | DEPARTMENT | | | (LAB) | | | OF | | | | | | PATHOLOGY | | + + + + + + | POTASSIUM, | 4.2 | 3.4 - 5.0 | [facility] | | | PLASMA | | mmol/L | DEPARTMENT | | | (LAB) | | | OF | | | | | | PATHOLOGY | | + + + + + + | CHLORIDE, | 103 | 97 - 108 mmol/L | [facility] | | | PLASMA | | | DEPARTMENT | | | (LAB) | | | OF | | | | | | PATHOLOGY | | + + + + + + | TOTAL CO2, | 25Comment: New Total | 22 - 29 mmol/L | [facility] | | | PLASMA | CO2 reference range | | DEPARTMENT | | | (LAB) | effective 04/20/10. | | OF | | | | | | PATHOLOGY | | + + + + + + | CALCIUM, | 8.4 (L) | 8.6 - 10.2 | [facility] | [...] + + + + + | [facility] | [address] | [place] [address] | | | PATHOLOGY | [address] | | | + + + + + OPERATION RECORD (07/23/2010 12:00 AM PST) + + + | Narrative | Performed At | + + + | [id number] | | | [id number] | | | DIANE Morocho [id number] | | | Date: 07/23/2010 Attending Surgeon: | | | Lee Lucio M.D. Optical Store Manager(s): | | | Jonny Corado M.D. 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 Procedures Performed: 1. | | | Exploratory celiotomy. 2. Complex resection of mesenteric | | | juliano mass. 3. Open cholecystectomy. 4. Intraoperative | | | ultrasonography of the liver. Anesthesia: General | | | endotracheal. Indications: Mr. Elaine is a 64-year-old man who | | | has a history of small bowel carcinoid, presented with bowel | | | obstruction. He was operated in [place] and was found to have a | | | tumor in the terminal ileum that was resected. 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 | | | He was thought not to have visible liver metastases at that time. | | | The patient saw me in consultation, and review of the CT scans | | | indicated the mesenteric juliano mass. Further workup did not | | | reveal any metastatic disease on OctreoScan or biochemical testing, | | | but he might have metastases detectable by further inspection of | | | the liver or intraoperative ultrasonography. The mesenteric mass | | | appeared to be surgically resectable. Because the patient has | | | carcinoid and might have a future need of long-term somatostatin | | | analog therapy which causes cholelithiasis, prophylactic | | | cholecystectomy is indicated in carcinoid patients. He is taken | | | to the operating room today for exploration for resection and/or | | | debulking of the mesenteric mass, inspection of the liver, | | | intraoperative ultrasonography of the liver, possible liver | | | resection, and prophylactic cholecystectomy. Findings At | | | Operation: The patient had adhesions of the omentum to his midline | | | incision from his previous operation. There were also multiple | | | interloop adhesions. He had an anastomosis in the [id number] | | | fashion in the terminal ileum. There was a mesenteric mass at the | | | root of the mesentery just to the right of the superior mesenteric | | | vein and artery. It did not involve any major radicles to the | | | small bowel or right colon. It just involved minor radicles. He | | | had no cholelithiasis. The liver was free of metastases on | | | inspection, palpation, and intraoperative ultrasonography. He had | | | no carcinomatosis. Procedure: The patient was identified, | | | taken to the operating room, and placed on the operating table in | | | supine position. He was given prophylactic antibiotics and | | | prophylactic octreotide, and general anesthetic was induced. Lines | | | were placed. Hawkins catheter was placed. His abdomen was then | | | prepared and draped in sterile fashion. A surgical team pause was | | | held, and there was agreement on all aspects of the prescribed | | | surgical team pause. We opened his midline incision. He had | | | dense adhesions to the subcutaneous tissue and the fascia. | | | Underneath that, he had adhesions of the properitoneal space; | | | however, we were able to enter the peritoneal cavity bluntly with | | | adhesions between the peritoneum and the omentum. The fascia was | | | elevated with Amanda clamps, and dissection was carried out toward | | | the right side in the plane between the omentum and the peritoneum, | | | and eventually, free space in the right lower quadrant was | | | entered. We were then able to dissect this circumferentially | | | around the incision and free up the omentum from the incision. | | | The omentum was stuck down to the bladder flap, and it was | | | transected just above the bladder flap thus allowing it to be | | | retracted superiorly. We then found numerous adhesions of the | | | omentum to the small bowel and the small bowel to itself and to the | | | mesentery. These were all taken down with sharp dissection. | | | Eventually, we were able to take the small bowel from the | | | ligament of Treitz and run it to the anastomosis in the terminal | | | ileum where a illy-nk-wiea anastomosis was identified. We could | | | also see that his appendix had been removed. We then took down the | | | falciform ligament, divided ligamentum teres and tied that off | | | with 2-0 silk ties, divided the falciform ligament up toward the | | | inferior vena cava. We then inspected the liver and saw no | | | metastases. We palpated the liver and saw no metastases. | | | Intraoperative ultrasonography also revealed no metastases. | | | Thus, no liver resection was required. We then proceeded to | | | perform the complex mesenteric resection. A Doppler was brought | | | onto the field, and we elevated the root of the mesentery. We | | | listened with the Doppler and identified the location of the | | | superior mesenteric artery, and we could hear the roar of the | | | venous signal in the superior mesenteric vein to the right. We | | | mapped this out on the surface of the mesenteric anterior | | | peritoneal leaf using marking pens and clips. The mesenteric juliano | | | mass was at the root of the mesentery just to the right of these | | | vessels. It appeared that the right colic and ileocolic passed | | | beneath the juliano mass by mapping. We then opened the anterior | | | peritoneal leaf along a line just to the right of the location of | | | the superior mesenteric vein. We dissected down into the | | | mesentery on the medial side of the juliano mass. Some veins were | | | entered, and these were suture ligated with 4-0 Prolene. The | | | Harmonic scalpel was used to divide mesenteric fat and lymphatics and | | | nerves. Using right angle dissection and tonsil dissection and | | | the above-described techniques of dividing mesenteric fat, vessels, | | | and nerves, we scored along the right side of the superior | | | mesenteric vein and artery liberating the juliano mass toward the | | | right. Some small minor branches of mesenteric artery and vein | | | that were coursing into the mass were divided and suture ligated | | | with 4-0 Prolene sutures. Dissection was then carried down to the | | | posterior leaf of the peritoneum on the mesentery, but this was not | | | violated to leave the peritoneum intact on one side. We then | | | dissected underneath the mass leaving the posterior peritoneal | | | leaflet in place. Again the same techniques were used to divide | | | structures. We then dissected around the superior edge and then | | | went over toward the right mesocolon. Here, the peritoneum was | | | fairly contracted from the hormonal effects on the peritoneum. | | | The peritoneum was incised with electrocautery, and this released | | | it and allowed us to dissect down on the right lateral side of the | | | mass down to the posterior leaflet. This technique was then | | | continued. We were taking lymphatics and tributaries and suture | | | ligating them as required and skeletonizing major vessels near the | | | root of the mesentery and superior mesenteric vein, and the mass | | | was eventually delivered from the wound. I then palpated the | | | mesentery, and it felt that there was still thickening and possible | | | juliano disease up higher. I split the anterior leaf of the | | | mesentery just to the right of the superior mesenteric vein and cut | | | into the fat, and this was just found to be saponified fibrotic | | | fat, no juliano metastases were identified there. This was in | | | agreement with the findings on the CT scan which indicated that we | | | should have already resected the juliano disease. The mesentery was | | | irrigated. Bleeding points were controlled with electrocautery | | | and suture ligation using 4-0 silk and 4-0 Prolene as required. The | | | bowel was then inspected and found to be completely viable. | | | Because the posterior leaflet of the mesentery had not been | | | violated, we did not have to do any repair of any mesenteric | | | defect. We then packed the liver down inferiorly by placing lap | | | pads between the diaphragm and the liver. The gallbladder fundus | | | was grasped. The gallbladder serosa was scored 1 cm from the liver | | | edge. Dissection was then carried down in the plane between the | | | serosa and gallbladder muscularis down the fundus, down the | | | anterior cystic plate toward the hilum, and down the posterior | | | cystic plate toward the hilum. The gallbladder was then peeled out | | | of the gallbladder fossa. Dissection was carried toward the | | | hilum. The triangle of Calot was dissected out. The cystic artery | | | was identified, triply clipped, and divided leaving 2 clips on the | | | patient's side. We then skeletonized the cystic duct and bile | | | duct junction. The cystic duct was clamped with a right angle | | | clamp. The gallbladder end of the cystic duct was closed with a | | | large clip. The gallbladder was amputated and passed off the | | | field. The cystic duct stump was ligated with 3-0 Vicryl suture. | | | The anna hepatis was then checked for hemostasis which was | | | adequate. Electrocautery was used to achieve hemostasis in the | | | gallbladder fossa. The lap pads were then removed. The abdomen | | | was copiously irrigated with 2 L of saline. A hole in the omentum | | | that resulted from the dissection was closed with [id number] | | | 3-0 silk sutures. The viscera were returned to their [place] | | | positions. They were covered with the omentum. The midline | | | abdominal incision was then closed with two running looped number 1 | | | Maxon sutures starting at either superior or inferior vertex and | | | tied just above the umbilicus. Subcutaneous tissues were | | | irrigated and checked for hemostasis. The skin was closed with | | | jon. Estimated blood loss was minimal. There were no | | | complications. He did not require any additional octreotide for | | | carcinoid crisis. He was awakened, extubated, and transported to | | | the recovery room in stable condition. All specimens were sent to | | | Pathology. This operation qualifies for a 22 modifier because | | | of the complicated nature of mesenteric juliano resection against the | | | superior mesenteric vessels. Lee Lucio M.D. RP | | | / HS [id number] / [id number] / [id number] / | | | | | + + + + + | Procedure Note | + + | Lee Lucio MD - 07/24/2010 8:57 AM RUST [id number] | | [id number] [place] | | [id number] Date: 07/23/2010 Attending Surgeon: Lee | | Michell Lucio Optical Store Manager(s): Jonny Corado M.D. 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 Postoperative | | Diagnosis(es):History of small bowel carcinoid tumor with metastasis to the | | mesentericlymph nodes at the root of the mesentery, no liver metastases. Procedures | | Performed:1. Exploratory celiotomy.2. Complex resection of mesenteric juliano | | mass.3. Open cholecystectomy.4. Intraoperative ultrasonography of the liver. | | Anesthesia:General endotracheal. Indications:Mr. Elaine is a 64-year-old man who has a | | history of small bowel carcinoid,presented with bowel obstruction. He was operated in | | [place] and wasfound to have a tumor in the terminal ileum that was resected. He also | | wasfound to have a large mass near the root of the mesentery that was biopsiedand | | proved to be metastatic carcinoid but was not resected. He was thoughtnot to have | | visible liver metastases at that time. The patient saw me inconsultation, and review of | | the CT scans indicated the mesenteric nodalmass. Further workup did not reveal any | | metastatic disease on OctreoScanor biochemical testing, but he might have metastases | | detectable by furtherinspection of the liver or intraoperative ultrasonography. The | | mesentericmass appeared to be surgically resectable. Because the patient hascarcinoid | | and might have a future need of long-term somatostatin analogtherapy which causes | | cholelithiasis, prophylactic cholecystectomy isindicated in carcinoid patients. He is | | taken to the operating room todayfor exploration for resection and/or debulking of the | | mesenteric mass,inspection of the liver, intraoperative ultrasonography of the | | liver,possible liver resection, and prophylactic cholecystectomy. Findings At | | Operation:The patient had adhesions of the omentum to his midline incision from | | hisprevious operation. There were also multiple interloop adhesions. He hadan | | anastomosis in the [id number]-jw-[id number] fashion in the terminal ileum. Therewas a mesenteric | | mass at the root of the mesentery just to the right of thesuperior mesenteric vein and | | artery. It did not involve any major radiclesto the small bowel or right colon. It | | just involved minor radicles. Hehad no cholelithiasis. The liver was free of | | metastases on inspection,palpation, and intraoperative ultrasonography. He had no | | carcinomatosis. Procedure:The patient was identified, taken to the operating room, and | | placed on theoperating table in supine position. He was given prophylactic | | antibioticsand prophylactic octreotide, and general anesthetic was induced. Lineswere | | placed. Hawkins catheter was placed. His abdomen was then prepared anddraped in sterile | | fashion. A surgical team pause was held, and there wasagreement on all aspects of the | | prescribed surgical team pause. We openedhis midline incision. He had dense adhesions | | to the subcutaneous tissueand the fascia. Underneath that, he had adhesions of the | | properitonealspace; however, we were able to enter the peritoneal cavity bluntly | | withadhesions between the peritoneum and the omentum. The fascia was elevatedwith | | Amanda clamps, and dissection was carried out toward the right side inthe plane between | | the omentum and the peritoneum, and eventually, freespace in the right lower quadrant | | was entered. We were then able todissect this circumferentially around the incision and | | free up the omentumfrom the incision. The omentum was stuck down to the bladder flap, | | and itwas transected just above the bladder flap thus allowing it to be | | retractedsuperiorly. We then found numerous adhesions of the omentum to the smallbowel | | and the small bowel to itself and to the mesentery. These were alltaken down with sharp | | dissection. Eventually, we were able to take thesmall bowel from the ligament of | | Treitz and run it to the anastomosis inthe terminal ileum where a [id number] | | anastomosis was identified. Wecould also see that his appendix had been removed. We | | then took down thefalciform ligament, divided ligamentum teres and tied that off with | | 2-0silk ties, divided the falciform ligament up toward the inferior vena cava.We then | | inspected the liver and saw no metastases. We palpated the liverand saw no metastases. | | Intraoperative ultrasonography also revealed nometastases. Thus, no liver resection | | was required. We then proceeded toperform the complex mesenteric resection. A Doppler | | was brought onto thefield, and we elevated the root of the mesentery. We listened with | | theDoppler and identified the location of the superior mesenteric artery, andwe could | | hear the roar of the venous signal in the superior mesenteric veinto the right. We | | mapped this out on the surface of the mesenteric anteriorperitoneal leaf using marking | | pens and clips. 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 Itappeared that the right colic and ileocolic passed beneath | | the juliano massby mapping. We then opened the anterior peritoneal leaf along a line | | justto the right of the location of the superior mesenteric vein. We dissecteddown into | | the mesentery on the medial side of the juliano mass. Some veinswere entered, and these | | were suture ligated with 4-0 Prolene. The Harmonicscalpel was used to divide mesenteric | | fat and lymphatics and nerves. Usingright angle dissection and tonsil dissection and | | the above-describedtechniques of dividing mesenteric fat, vessels, and nerves, we scored | | alongthe right side of the superior mesenteric vein and artery liberating thenodal mass | | toward the right. Some small minor branches of mesentericartery and vein that were | | coursing into the mass were divided and sutureligated with 4-0 Prolene sutures. | | Dissection was then carried down to theposterior leaf of the peritoneum on the | | mesentery, but this was notviolated to leave the peritoneum intact on one side. We then | | dissectedunderneath the mass leaving the posterior peritoneal leaflet in place.Again | | the same techniques were used to divide structures. We thendissected around the | | superior edge and then went over toward the rightmesocolon. Here, the peritoneum was | | fairly contracted from the hormonaleffects on the peritoneum. The peritoneum was | | incised with electrocautery,and this released it and allowed us to dissect down on the | | right lateralside of the mass down to the posterior leaflet. This technique was | | thencontinued. We were taking lymphatics and tributaries and suture ligatingthem as | | required and skeletonizing major vessels near the root of themesentery and superior | | mesenteric vein, and the mass was eventuallydelivered from the wound. 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 I splitthe anterior leaf of the mesentery just to the right of the | | superiormesenteric vein and cut into the fat, and this was just found to besaponified | | fibrotic fat, no juliano metastases were identified there. 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 The mesentery wasirrigated. Bleeding points were controlled with | | electrocautery and sutureligation using 4-0 silk and 4-0 Prolene as required. The bowel | | was theninspected and found to be completely viable. Because the posterior leafletof | | the mesentery had not been violated, we did not have to do any repair ofany mesenteric | | defect. We then packed the liver down inferiorly by placinglap pads between the | | diaphragm and the liver. The gallbladder fundus wasgrasped. The gallbladder serosa was | | scored 1 cm from the liver edge.Dissection was then carried down in the plane between | | the serosa andgallbladder muscularis down the fundus, down the anterior cystic | | platetoward the hilum, and down the posterior cystic plate toward the hilum.The | | gallbladder was then peeled out of the gallbladder fossa. Dissectionwas carried toward | | the hilum. The triangle of Calot was dissected out.The cystic artery was identified, | | triply clipped, and divided leaving 2clips on the patient's side. We then skeletonized | | the cystic duct and bileduct junction. The cystic duct was clamped with a right angle | | clamp. Thegallbladder end of the cystic duct was closed with a large clip. | | Thegallbladder was amputated and passed off the field. The cystic duct stumpwas ligated | | with 3-0 Vicryl suture. The anna hepatis was then checked forhemostasis which was | | adequate. Electrocautery was used to achievehemostasis in the gallbladder fossa. The | | lap pads were then removed. Theabdomen was copiously irrigated with 2 L of saline. A | | hole in the omentumthat resulted from the dissection was closed with [id number]-[id number] 3-0 | | silksutures. The viscera were returned to their [place] positions. They werecovered | | with the omentum. The midline abdominal incision was then closedwith two running looped | | number 1 Maxon sutures starting at either superioror inferior vertex and tied just | | above the umbilicus. Subcutaneous tissueswere irrigated and checked for hemostasis. | | The skin was closed withstaples. Estimated blood loss was minimal. 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 He | | wasawakened, extubated, and transported to the recovery room in stablecondition. All | | specimens were sent to Pathology. This operation qualifies for a 22 modifier because of | | the complicatednature of mesenteric juliano resection against the superior | | mesentericvessels. Lee Lucio M.D.JANET Palacios [id number] / [id number] / [id number] /D: | | 07/23/2010T: 07/24/2010 | |Again the same techniques were used to divide structures. We then | |dissected around the superior edge and then went over toward the right | |mesocolon. Here, the peritoneum was fairly contracted from the hormonal | |effects on the peritoneum. The peritoneum was incised with electrocautery, | |and this released it and allowed us to dissect down on the right lateral | |side of the mass down to the posterior leaflet. This technique was then | |continued. We were taking lymphatics and tributaries and suture ligating | |them as required and skeletonizing major vessels near the root of the | |mesentery and superior mesenteric vein, and the mass was eventually | |delivered from the wound. 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 I split | |the anterior leaf of the mesentery just to the right of the superior | |mesenteric vein and cut into the fat, and this was just found to be | |saponified fibrotic fat, no juliano metastases were identified there. This | |was in agreement with the findings on the CT scan which indicated that we | |should have already resected the juliano disease. The mesentery was | |irrigated. Bleeding points were controlled with electrocautery and suture | |ligation using 4-0 silk and 4-0 Prolene as required. The bowel was then | |inspected and found to be completely viable. Because the posterior leaflet | |of the mesentery had not been violated, we did not have to do any repair of | |any mesenteric defect. We then packed the liver down inferiorly by placing | |lap pads between the diaphragm and the liver. The gallbladder fundus was | |grasped. The gallbladder serosa was scored 1 cm from the liver edge. | |Dissection was then carried down in the plane between the serosa and | |gallbladder muscularis down the fundus, down the anterior cystic plate | |toward the hilum, and down the posterior cystic plate toward the hilum. | |The gallbladder was then peeled out of the gallbladder fossa. Dissection | |was carried toward the hilum. The triangle of Calot was dissected out. | |The cystic artery was identified, triply clipped, and divided leaving 2 | |clips on the patient's side. We then skeletonized the cystic duct and bile | |duct junction. The cystic duct was clamped with a right angle clamp. The | |gallbladder end of the cystic duct was closed with a large clip. The | |gallbladder was amputated and passed off the field. The cystic duct stump | |was ligated with 3-0 Vicryl suture. The anna hepatis was then checked for | |hemostasis which was adequate. Electrocautery was used to achieve | |hemostasis in the gallbladder fossa. The lap pads were then removed. The | |abdomen was copiously irrigated with 2 L of saline. A hole in the omentum | |that resulted from the dissection was closed with [id number] 3-0 silk | |sutures. The viscera were returned to their [place] positions. They were | |covered with the omentum. The midline abdominal incision was then closed | |with two running looped number 1 Maxon sutures starting at either superior | |or inferior vertex and tied just above the umbilicus. Subcutaneous tissues | |were irrigated and checked for hemostasis. The skin was closed with | |jon. Estimated blood loss was minimal. There were no complications. 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 He was | |awakened, extubated, and transported to the recovery room in stable | |condition. All specimens were sent to Pathology. | | | | | |This operation qualifies for a 22 modifier because of the complicated | |nature of mesenteric juliano resection against the superior mesenteric | |vessels. | | | | | | | | | |Lee Lucio M.D. 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 | + + | Neoplasm of unspecified nature of digestive system | + + documented in this encounter Administered Medications + +--------+ +--------+------+------+ | Medication Order | MAR | Action | Dose | Rate | Site | | | Action | Date | | | | + +--------+ +--------+------+------+ | acetaminophen (aka TYLENOL) | Given | 07/29/19 | 325 mg | | | | tablet 325 mg 325 mg, oral, | | 11 8:24 | | | | | EVERY 4 HOURS NEEDED, Starting | | AM PST | | | | | 07/23/10 at 2118, Until Wed | | | | | | | 07/28/10 at 1431, headache, fever | | | | | | + +--------+ +--------+------+------+ +---+---+ | | | +---+---+ + +---------+ +---+-------+---+ | dextrose 5%-lactated ringers IV | New Bag | 07/26/19 | | 100 | | | intravenous, CONTINUOUS, | | 11 6:26 | | mL/hr | | | Starting 07/23/10 at 1900, | | AM PST | | | | | Until 07/26/10 at 1425 | | | | | | + +---------+ +---+-------+---+ +---------+ +---+-------+---+ | New Bag | 07/25/19 | | 100 | | | | 11 9:06 | | mL/hr | | | | PM PST | | | | +---------+ +---+-------+---+ | New Bag | 07/25/19 | | 100 | | | | 11 11:00 | | mL/hr | | | | AM PST | | | | +---------+ +---+-------+---+ +---+---+ | | | +---+---+ + +-------+ +--------+---+---+ | docusate sodium (aka COLACE) | Given | 07/29/19 | 100 mg | | | | capsule 100 mg 100 mg, oral, | | 11 8:23 | | | | | TWICE DAILY, First dose on Fri | | AM PST | | | | | 07/23/10 at 2130, Until | | | | | | | Discontinued | | | | | | + +-------+ +--------+---+---+ +-------+ +--------+---+---+ | Given | 07/28/19 | 100 mg | | | | | 11 9:11 | | | | | | PM PST | | | | +-------+ +--------+---+---+ | Given | 07/28/19 | 100 mg | | | | | 11 10:08 | | | | | | AM PST | | | | +-------+ +--------+---+---+ +---+---+ | | | +---+---+ + +-------+ +-------+---+---+ | enoxaparin (aka LOVENOX) | Given | 07/28/19 | 40 mg | | | | injection 40 mg 40 mg, | | 11 9:11 | | | | | subcutaneous, EVERY EVENING, | | PM PST | | | | | First dose on 07/26/10 at | | | | | | | 2100, Until Discontinued | | | | | | + +-------+ +-------+---+---+ +-------+ +-------+---+---+ | Given | 07/26/19 | 40 mg | | | | | 11 8:39 | | | | | | PM PST | | | | +-------+ +-------+---+---+ +---+---+ | | | +---+---+ + + + +----+--------+---+ | HYDROmorphone 25 mg in | Rate/Dos | 07/26/19 | mg | mL/hr | | | bacteriostatic NaCl 0.9% 50 mL | e Verify | 11 12:00 | | | | | NURSE QUALITY infusion intravenous, | | PM PST | | | | | CONTINUOUS, Starting Mon07/23/10 | | | | | | | at 1900, Until 07/26/10 at | | | | | | | 1539 | | | | | | + + + +----+--------+---+ + + +----+--------+---+ | New Bag | 07/25/19 | mg | mL/hr | | | | 11 7:08 | | | | | | AM PST | | | | + + +----+--------+---+ | Rate/Dose Verify | 07/24/19 | | mL/hr | | | | 11 12:02 | | | | | | PM PST | | | | + + +----+--------+---+ +---+---+ | | | +---+---+ + +-------+ + +---+---+ | lactated ringers IV bolus 1,000 | Given | 07/24/19 | 1,000 mL | | | | mL 1,000 mL, intravenous, ONCE, | | 11 6:50 | | | | | 1 dose, 07/24/10 at 1830 | | PM PST | | | | + +-------+ + +---+---+ +---+---+ | | | +---+---+ + +---------+ + + +---+ | lactated ringers IV 10 mL/hr, | New Bag | 07/23/19 | 10 mL/hr | 10 mL/hr | | | intravenous, PROCEDURE | | 11 2:26 | | | | | CONTINUOUS, Starting Mon07/23/10 | | PM PST | | | | | at 1415, Until Mon07/23/10 at | | | | | | | 2111 | | | | | | + +---------+ + + +---+ +---+---+ | | | +---+---+ + +-------+ +-------+---+---+ | metoclopramide (aka REGLAN) | Given | 07/25/19 | 10 mg | | | | injection 10 mg 10 mg, | | 11 5:07 | | | | | intravenous, EVERY 6 HOURS | | PM PST | | | | | NEEDED, Starting Mon07/23/10 at | | | | | | | 2118, Until Mon07/28/10 at 1431, | | | | | | | nausea/vomiting | | | | | | + +-------+ +-------+---+---+ +---+---+ | | | +---+---+ + +-------+ +------+---+---+ | oxyCODONE immediate release | Given | 07/29/19 | 5 mg | | | | (aka ROXICODONE) tablet 5-15 mg | | 11 8:24 | | | | | 5-15 mg, oral, EVERY 4 HOURS | | AM PST | | | | | NEEDED, Starting 07/26/10 at | | | | | | | 1424, Until Mon07/28/10 at 1431, | | | | | | | moderate pain, severe pain | | | | | | + +-------+ +------+---+---+ +-------+ +------+---+---+ | Given | 07/29/19 | 5 mg | | | | | 11 2:03 | | | | | | AM PST | | | | +-------+ +------+---+---+ | Given | 07/28/19 | 5 mg | | | | | 11 6:04 | | | | | | PM PST | | | | +-------+ +------+---+---+ +---+---+ | | | +---+---+ + +-------+ +--------+---+---+ | potassium chloride (aka | Given | 07/28/19 | 40 mEq | | | | KLOR-CON) packet 40 mEq 40 mEq, | | 11 12:20 | | | | | oral, ONCE, 1 dose, 07/27/10 at | | PM PST | | | | | 1215 | | | | | | + +-------+ +--------+---+---+ +---+---+ | | | +---+---+ + +-------+ +--------+---+---+ | potassium chloride IV 40 mEq | Given | 07/28/19 | 40 mEq | | | | 40 mEq, intravenous, ONCE, 1 | | 11 7:48 | | | | | dose, 07/27/10 at 1445 | | PM PST | | | | + +-------+ +--------+---+---+ +-------+ +--------+---+---+ | Given | 07/28/19 | 40 mEq | | | | | 11 6:03 | | | | | | PM PST | | | | +-------+ +--------+---+---+ +---+---+ | | | +---+---+ + +-------+ +------+---+---+ | prochlorperazine (aka | Given | 07/26/19 | 5 mg | | | | COMPAZINE) injection 5 mg 5 mg, | | 11 6:27 | | | | | intravenous, EVERY 6 HOURS | | AM PST | | | | | NEEDED, Starting Mon07/23/10 at | | | | | | | 2118, Until Mon07/28/10 at 1431, | | | | | | | nausea/vomiting | | | | | | + +-------+ +------+---+---+ +-------+ +------+---+---+ | Given | 07/24/19 | 5 mg | | | | | 11 5:40 | | | | | | AM PST | | | | +-------+ +------+---+---+ +---+---+ | | | +---+---+ + +-------+ +--------+---+---+ | ranitidine (aka ZANTAC) tablet | Given | 07/29/19 | 150 mg | | | | 150 mg 150 mg, oral, EVERY 12 | | 11 8:23 | | | | | HOURS, First dose on 07/26/10 | | AM PST | | | | | at 0900, Until Discontinued | | | | | | + +-------+ +--------+---+---+ +-------+ +--------+---+---+ | Given | 07/28/19 | 150 mg | | | | | 11 9:11 | | | | | | PM PST | | | | +-------+ +--------+---+---+ | Given | 07/28/19 | 150 mg | | | | | 11 10:08 | | | | | | AM PST | | | | +-------+ +--------+---+---+ +---+---+ | | | +---+---+ documented in this encounter
--- OUTSIDE RECORDS SUMMARY | ~2020-01-30 | XMS | Encounter Summary ---
Demographics + + + | Address | [address] | | | [place] [address] | + + + | Home Phone | | + + + | Preferred Language | Unknown | + + + | Marital Status | | + + + | Sabianist Affiliation | CHR | + + + | Race | White | + + + | Ethnic Group | Not or | + + + Author + + + | Author | [facility] | + + + | Organization | [facility] | + + + | Address | Unknown | + + + | Phone | Unavailable | + + + Support + + +---------+ + | Name | Relationship | Address | Phone | + + +---------+ + | Caroline Elaine | ECON | Unknown | | + + +---------+ + Care Team Providers + +------+ + | Care Cold Water Machine Operator Name | Role | Phone | [...] | | | | | | [address] [facility] | | | | | | | | | | | | | | Mailcode: | | | | | | | [id number] | | | | | | | [place] | | | | | | | [place], [place] | | | | | | | [address] | | | | | | | Phone: | | | | | | | [phone] | | | | | | | Fax: | | | | | | | [phone] | +--------+--------+ + + + + Encounter Details +--------+---------+ + + + | Date | Type | Department | Care Team | Description | +--------+---------+ + + + | 07/22/ | Office | Surgical Oncology | John Lucio, | 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 | [address] | specified | | | | [facility] | [phone] | pre-operative | | | | and Healing, | | examination; | | | | Building | | Mesenteric | | | | Floor [place], [place] | | lymphadenopathy | | | | [address] | | | | | | [phone] | | | +--------+---------+ + + + [...] + + + | Blood Pressure | 116/89 | 07/22/2010 1:06 PM | | | | | PST | | + + + + + | Pulse | 89 | 07/22/2010 1:06 PM | | | | | PST | | + + + + + | Temperature | 36.7 C (98 F) | 07/22/2010 1:06 PM | | | | | PST | | + + + + + | Respiratory Rate | 15 | 07/22/2010 1:06 PM | | | | | PST | | + + + + + | Oxygen Saturation | - | - | | + + + + + | Inhaled Oxygen | - | - | | | Concentration | | | | + + + + + | Weight | 100.1 kg (220 lb | 07/22/2010 1:06 PM | | | | 11.2 oz) | PST | | + + + + + | Height | - | - | | + + + + + | Body Mass Index | 29.93 | 03/29/2010 11:06 AM | | | | | PDT | | + + + + + documented in this encounter Patient Instructions Patient Instructions Saundra Bullock RN - 07/22/2010 1:26 PM PSTRegistration Locations (p letessie check in at one of the following registration desks prior to surgery) For surgeries scheduled to take place on the broadus at the [facility]: Surgeries scheduled in the [facility] ( [facility]): registration is located on the 4th floor of [facility] (Day Surgery). Surgeries scheduled in the [facility]: registration is located on the 9th floor. Surgeries scheduled in [facility]: registration is located on the 6th floor. Surgeries scheduled in the [facility]: registration is located i n the [facility] on the first floor. For surgeries scheduled to take place at the [facility]: registration is l [...] If you use specialized medical equipment at [facility], please check with your provider before bringing it with you into the hospital. Registration Process for all Admissions/Surgeries 1. Please bring your insurance card(s) with you and be prepared to pay any co-payment, co-i nsurance or deposit that may be required. 2. Once you arrive at the registration desk, you will be interviewed by a Patient Access Se rvice Specialist (ENA). Demographics will be verified (example: name, date of , Social Security Number, address, insurance). 3. You will be asked to sign some paperwork: Terms and Conditions of Service, Notice of Trisha vacy Practices Acknowledgement and Genetic Testing Opt Out. 4. You will be given some paperwork: copies of any forms signed by you, Patient Rights, Res ponsibilities and Safety, Understanding Advance Directives, and Smoking Cessation Brochure. INPATIENT SURGERY INFORMATION at [facility] Prior to surgery, you will need to do the followin. [facility] Appointment (Perioperative Medicine Clinic) is on at . The [facility] clinic is located on the 4th floor of the [facility]. Post surgery: 1. Call Surgical Oncology Office ([phone]) To Make Post-Op Appointment. ANCILLARY SERVICES 1. Blood Work (Lab is located on the 3rd floor of [facility].) No appointment required. 2. Chest Xray (Radiology is located on the 3rd floor of [facility].) No appointment required. 3. EKG (EKG is located on the 9th floor of [facility].) No appointment required. *Stop blood thinners (Aspirin, Warfarin, etc.) as directed one week prior to surgery. * Nothing to eat or drink (including water) after midnight on 07/22/10 (the night prior to y our surgery). * Check in at [facility] ([facility]) 9th Floor Admitting desk on 07/23/10 at 11:00 a m. * Please shower, shampoo and shave before being admitted to the hospital. * Do not wear any make up, nail afghan or jewelry for the surgery. * Free parking is available in the [facility]. documented in this encounter Progress Notes Saundra Bullock RN - 07/22/2010 3:38 PM PST Addended by: SAUNDRA BULLOCK RN on: 07/22/19 11 Modules accepted: Orders John Li MD - 07/22/2010 2:52 PM PST Phi Elaine is a 64 y.o. male is here for a Carcinoid Clinic consultation. He present ed with abdominal pain in [facility] in early February. Prior to that, he did not have intermi ttent abdominal pain, flushing, or diarrhea. He had once complained a red nose and was diagn osed with rosacea, which interestingly enough is a common misdiagnosis of carcinoid flushing . CT scan showed a mesenteric mass in the RLQ. He was explored by Dr. Vivek Benjamin in [place], [place] on 03/10/2010. 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 The ma ss proved larger than thought based on the CT scan. Dr. Benjamin was quite concerned about the encroachment of the mass to the SMA and SMV and elected not to resect it. He did do a small bowel resection. Apparently, no liver metastases were seen. The gallbladder was not removed. He did not have any known carcinoid crises with the anesthetic or the post operative period . He also denies any problems with asthma, arthritis components of carcinoid syndrome. I saw him in March and thought that he was a candidate for a mesenteric juliano resection in an effort to resect all of the disease or at least as much of it as possible. I would als o re-evaluate his liver to see if he has liver metastases that could be debulked and resecte d and do a prophylactic cholecystectomy. However, I elected to wait 3 more months to allow h is adhesions to resolve and make the operation easier. He is here for that operation now. There has been no interval change in his history or symptoms. PAST MEDICAL HISTORY: Patient denies history of [...] to exceed 4000 mg of acetaminophen from al l products per 24 hour period.) SOCIAL HISTORY: Tobacco use: no Alcohol use: no Drug use: denies /single: Employment: Retired telephone claims representative. FAMILY HISTORY: No Family History of MEN [...] double vision, eye pain, eye irritation, discharge, blurre d vision or light sensitivity. Ears, Nose and Throat: No hearing loss, ringing in the ears, ear discharge, earache, nosebl eeds, nasal congestion, difficulty swallowing, hoarseness or sore throat. Respiratory: No shortness of breath, coughing up blood, excessive sputum, cough, chest disc omfort or wheezing. Musculoskeletal: No joint pain, swelling, stiffness, back pain, arthritis, muscle aches, mu scle cramps or loss of strength. Cardiovascular: No chest pain, skipping beats, lightheadedness, difficulty breathing uprigh t or lying down, fatigue, near fainting or fainting, palpitations, weight gain, edema, leg c ramps. Gastrointestinal: No loss of appetite, excessive appetite, indigestion, vomiting, nausea, c onstipation, gas, abdominal pain, hemorrhoids, diarrhea, bloating, bloody stools or dark tar ry stools. Genitourinary: No urinary frequency, blood in urine, difficulty in urination, discharge, pa inful urination, incontinence, urinary urgency, genital sores. Neurologic: No unusual headaches, inability to speak, poor balance, numbness, tingling, moris mors, memory loss, disturbances in coordination or sensation of room spinning. Skin: No itching, rash, poor wound healing, night sweats, changes in skin color, dryness, f lushing or suspicious lesions. Psychological: No abnormal anxiety, [...] female in no apparent distress, alert and o riented x3. The patient had no flushing during interview or examination. Head and neck: Normocephalic, atraumatic. Sclerae are anicteric. Neck is soft and supple. N o masses. No cervical or clavicular adenopathy. Chest/Lungs: Clear to A and P without carcinoid wheezing and 2 cm diaphragmatic excursions bilaterally. Heart: RRR without S3 or murmur suggestive of carcinoid heart disease. Abdomen: Midline incision, essentially from sub-xiphoid to Soft, nontender, and nondistende d. It is soft and pliable now. No visible masses. Liver percusses 6 cm in the R MCL. The shawn er is not palpable. The spleen is not palpable. There is no Sr. Sylvia Nadeem's nodule. There are no palpable abdominal masses. There is no inguinal lymphadenopathy. Extremities: No cyanosis, clubbing, or edema. Skin:No rash or pellagra. 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 Possible occult liver metastases. Plan: Exploratory celiotomy, resection or debulking of mesenteric adenopathy, possible ana l resection. Intraoperative ultrasonography of the liver, possible liver resection. Prophyla ctic cholecystectomy. A PARQ session was held, additional questions with discussion were co mpleted. Possible findings and scenarios were discussed. There may be a need for a second lo ok laparotomy. Questions were answered. Consent was signed. The patient needs octreotide pr ophylaxis of 500 mcg subQ/IV for the operation to prevent carcinoid crisis. JOHN LUCIO MD automotive parts advisor Division of Surgical Oncology [id number] [place], [place] [address] Saundra Hammer RN - 07/22/2010 1:55 PM PSTPatient/Family Readiness to Learn: The following pertains to: patient and spouse. Accurately explains reasons for visit and accurately relates medical history: yes. Accurately describes the likely alteration in self-care routines/abilities resulting from t reatment: yes. Able to provide names and reasons for taking current medications and dosages: yes. Able to follow proposed treatment plan for diet, activity and/or medication without difficu lty: yes. Learning Needs: Wound care and Procedures / treatments. Barriers: None identified. Referral To: No referral required. Preferred Learning Method: Verbal and Written. Teaching: Care instructions reviewed: preop. Patient/Family Response to Teaching: Verbalizes understanding of information/instructions given: Yes. Demonstrates ability to perform required procedure: Not applicable. Additional Notes: none Tdocumented in this encounter Procedure Notes Sanam Owens - 07/22/2010 3:29 PM PSTAssociated Order(s): RADIOLOGY documented in this encou nter Miscellaneous Notes Scan - Roman Faculty - 07/22/2010 3:29 PM PST documented in this encou nter Plan of Treatment Not on filedocumented as of this encounter Procedures + +--------+ + + + | Procedure Name | Priori | Date/Time | Associated Diagnosis | Comments | | | ty | | | | + +--------+ + + + | RADIOLOGY | | 07/22/2010 | | Results for this | | | | 3:29 PM | | procedure are in the | | | | PST | | results section. | + +--------+ + + + | PRODUCT - RED CELLS | Routin | 07/22/2010 | | Results for this | | LEUKOREDUCED | e | 1:30 PM | | procedure are in the | | | | PST | | results section. | + +--------+ + + + | PRODUCT - RED CELLS | Routin | 07/22/2010 | | Results for this | | LEUKOREDUCED | e | 1:30 PM | | procedure are in the | | | | PST | | results section. | + +--------+ + + + | PRODUCT - RED CELLS | Routin | 07/22/2010 | | Results for this | | LEUKOREDUCED | e | 1:30 PM | | procedure are in the | | | | PST | | results section. | + +--------+ + + + | PRODUCT - RED CELLS | Routin | 07/22/2010 | Carcinoid tumor of | Results for this | | LEUKOREDUCED | e | 1:30 PM | small intestine | procedure are in the | | | | PST | Other specified | results section. | | | | | pre-operative | | | | | | examination | | + +--------+ + [...] HALEY | | | | | | JEROME,Reviewer: HALEY | | | | | | JEROME, STATUS FINAL / . | | | | | | HALEY CANO | | | | + + + + + + + + | Specimen | + + | | + + + +---------+ + + | Performing | Address | City/State/Zipcode | Phone Number | | Organization | | | | + +---------+ + + | [facility] DEPARTMENT OF | | | | | RADIOLOGY | | | | + +---------+ + + RADIOLOGY (07/22/2010 3:29 PM PST) + + + | Narrative | Performed At | + + + | | | + + + + + | Procedure Note | + + | Other, Faculty - 07/22/2010 3:29 PM PST | | | + + PRODUCT- RED CELLS LEUKOREDUCED (07/22/2010 1:30 PM PST) + + + + + + | Component | Value | Ref Range | Performed | Pathologist | | | | | At | Signature | + + + + + + | PRODUCT | -1 RED BLOOD | | [facility] | | | DESCRIPTION | CELLS,ADENINE-SALINE | | DEPARTMENT | | | | ADDED,LEUKOCYTES REDUCED | | OF | | | | | | PATHOLOGY | | + + + + + + | PRODUCT | [id number] | | [facility] | | | UNIT # | | | DEPARTMENT | | | | | | OF | | | | | | PATHOLOGY | | + + + + + + | UNIT ABO | AB | | [facility] | | | | | | DEPARTMENT | | | | | | OF | | | | | | PATHOLOGY | | + + + + + + | UNIT RH | POS | | [facility] | | | | | | DEPARTMENT | | | | | | OF | | | | | | PATHOLOGY | | + + + + + + | STATUS OF | Returned to Blood Bank | | [facility] | | | UNIT | | | DEPARTMENT | | | | | | OF | | | | | | PATHOLOGY | | + + + + + + | BLOOD | [id number] | | [facility] | | | PRODUCT | | | DEPARTMENT | | | CODE | | | OF | | | | | | PATHOLOGY | | + + + + + + + + | Specimen | + + | | + + + + + + + | Performing | Address | City/State/Zipcode | Phone Number | | Organization | | | | + + + + + | [facility] | [address] | [place] [address] | | | PATHOLOGY | [address] | | | + + + + + PRODUCT- RED CELLS LEUKOREDUCED (07/22/2010 1:30 PM PST) + + + + + + | Component | Value | Ref Range | Performed | Pathologist | | | | | At | Signature | + + + + + + | PRODUCT | -1 RED BLOOD | | [facility] | | | DESCRIPTION | CELLS,ADENINE-SALINE | | DEPARTMENT | | | | ADDED,LEUKOCYTES REDUCED | | OF | | | | | | PATHOLOGY | | + + + + + + | PRODUCT | [id number] | | [facility] | | | UNIT # | | | DEPARTMENT | | | | | | OF | | | | | | PATHOLOGY | | + + + + + + | UNIT ABO | AB | | [facility] | | | | | | DEPARTMENT | | | | | | OF | | | | | | PATHOLOGY | | + + + + + + | UNIT RH | NEG | | [facility] | | | | | | DEPARTMENT | | | | | | OF | | | | | | PATHOLOGY | | + + + + + + | STATUS OF | Returned to Blood Bank | | [facility] | | | UNIT | | | DEPARTMENT | | | | | | OF | | | | | | PATHOLOGY | | + + + + + + | BLOOD | [id number] | | [facility] | | | PRODUCT | | | DEPARTMENT | | | CODE | | | OF | | | | | | PATHOLOGY | | + + + + + + + + | Specimen | + + | | + + + + + + + | Performing | Address | City/State/Zipcode | Phone Number | | Organization | | | | + + + + + | [facility] DEPARTMENT | [address] | [place], [place] [address] | | | PATHOLOGY | [address] | | | + + + + + PRODUCT- RED CELLS LEUKOREDUCED (07/22/2010 1:30 PM PST) + + + + + + | Component | Value | Ref Range | Performed | Pathologist | | | | | At | Signature | + + + + + + | PRODUCT | -1 RED BLOOD | | [facility] | | | DESCRIPTION | CELLS,ADENINE-SALINE | | DEPARTMENT | | | | ADDED,LEUKOCYTES REDUCED | | OF | | | | | | PATHOLOGY | | + + + + + + | PRODUCT | [id number] | | [facility] | | | UNIT # | | | DEPARTMENT | | | | | | OF | | | | | | PATHOLOGY | | + + + + + + | UNIT ABO | AB | | [facility] | | | | | | DEPARTMENT | | | | | | OF | | | | | | PATHOLOGY | | + + + + + + | UNIT RH | NEG | | [facility] | | | | | | DEPARTMENT | | | | | | OF | | | | | | PATHOLOGY | | + + + + + + | STATUS OF | Returned to Blood Bank | | [facility] | | | UNIT | | | DEPARTMENT | | | | | | OF | | | | | | PATHOLOGY | | + + + + + + | BLOOD | [id number] | | [facility] | | | PRODUCT | | | DEPARTMENT | | | CODE | | | OF | | | | | | PATHOLOGY | | + + + + + + + + | Specimen | + + | | + + + + + + + | Performing | Address | City/State/Zipcode | Phone Number | | Organization | | | | + + + + + | [facility] | [address] | [place] [address] | | | PATHOLOGY | [address] | | | + + + + + PRODUCT- RED CELLS LEUKOREDUCED (07/22/2010 1:30 PM PST) + + + + + + | Component | Value | Ref Range | Performed | Pathologist | | | | | At | Signature | + + + + + + | PRODUCT | -1 RED BLOOD | | [facility] | | | DESCRIPTION | CELLS,ADENINE-SALINE | | DEPARTMENT | | | | ADDED,LEUKOCYTES REDUCED | | OF | | | | | | PATHOLOGY | | + + + + + + | PRODUCT | [id number] | | [facility] | | | UNIT # | | | DEPARTMENT | | | | | | OF | | | | | | PATHOLOGY | | + + + + + + | UNIT ABO | AB | | [facility] | | | | | | DEPARTMENT | | | | | | OF | | | | | | PATHOLOGY | | + + + + + + | UNIT RH | POS | | [facility] | | | | | | DEPARTMENT | | | | | | OF | | | | | | PATHOLOGY | | + + + + + + | STATUS OF | Returned to Blood Bank | | [facility] | | | UNIT | | | DEPARTMENT | | | | | | OF | | | | | | PATHOLOGY | | + + + + + + | BLOOD | [id number] | | [facility] | | | PRODUCT | | | DEPARTMENT | | | CODE | | | OF | | | | | | PATHOLOGY | | + + + + + + + + | Specimen | + + | | + + + + + + + | Performing | Address | City/State/Zipcode | Phone Number | | Organization | | | | + + + + + | [facility] | [address] | [place] [address] | | | PATHOLOGY | [address] [...]
--- OUTSIDE RECORDS SUMMARY | ~2020-01-30 | XMS | Encounter Summary ---
Demographics + + + | Address | [address] | | | [place] [address] | + + + | Home Phone | | + + + | Preferred Language | Unknown | + + + | Marital Status | | + + + | Advent Affiliation | CHR | + + + | Race | White | + + + | Ethnic Group | Not or | + + + Author + + + | Author | [facility] | + + + | Organization | [facility] | + + + | Address | Unknown | + + + | Phone | Unavailable | + + + Support + + +---------+ + | Name | Relationship | Address | Phone | + + +---------+ + | Caroline Elaine | ECON | Unknown | | + + +---------+ + Care Team Providers + +------+ + | Care Food Preparation Supervisor Name | Role | Phone | + +------+ + | Cole Preston MD | PCP | | + +------+ + Encounter Details +--------+ + + + + | Date | Type | Department | Care Team | Description | +--------+ + + + + | 08/04/ | Document-Sc | Surgical Oncology | Lee Lucio, | | | 2015 | anned | at [facility] [address] | [address] | | | | | [facility] | [place], [place] | | | | | [facility], | [address] | | | | | [address] | [phone] | | | | | [place], [place] | | | | | | [address] | | | | | | [phone] | | | +--------+ + + + [...] documented as of this encounter Miscellaneous Notes Scan - Roman Faculty - 08/04/2014 11:57 PM PDTElectronically signed by Faculty Other at 11:57 PM PDTdocumented in this encounter Plan of Treatment Not on filedocumented as of this encounter Visit Diagnoses Not on filedocumented in this encounter"
--- OUTSIDE RECORDS SUMMARY | ~2020-01-30 | XMS | Encounter Summary ---
Demographics + + + | Address | [address] | | | [place] [address] | + + + | Home Phone | | + + + | Preferred Language | Unknown | + + + | Marital Status | | + + + | Cheondoism Affiliation | CHR | + + + | Race | White | + + + | Ethnic Group | Not or | + + + Author + + + | Author | [facility] | + + + | Organization | [facility] | + + + | Address | Unknown | + + + | Phone | Unavailable | + + + Support + + +---------+ + | Name | Relationship | Address | Phone | + + +---------+ + | Caroline Elaine | ECON | Unknown | | + + +---------+ + Care Team Providers + +------+ + | Care Office Mail Clerk Name | Role | Phone | + [...] | | | | | | [address] [facility] | | | | | | | | | | | | | | Mailcode: | | | | | | | [id number] | | | | | | | [address] | | | | | | | [place], [place] | | | | | | | [address] | | | | | | | Phone: | | | | | | | [phone] | | | | | | | Fax: | | | | | | | [phone] | +--------+--------+ + + + + Encounter Details +--------+ + + + + | Date | Type | Department | Care Team | Description | +--------+ + + + + | 07/22/ | Hospital | Cardiac | Sjh, Car Ecg Tech | | | 2010 | Encounter | Non-Invasive Testing | [address] | | | | | at [place] | [facility] | | | | | [address] | [place] [address] | | | | | [address] | | | | | | [place], [address] [place] [address] | | | | | | [place], [place] | | | | | | [address] | | | | | | [phone] | | | +--------+ + + + [...] + + documented in this encounter Results 12 LEAD ECG (07/22/2010 3:51 PM PST) [...] OF | | | | ECGConfirmed by DESMOND, | | CARDIOLOGY | | | | [...] view image for the detailed interpretation from [employer] results. | CARDIOLOGY | + + + + + + + + | Performing | Address | City/State/Zipcode | Phone Number | | Organization | | | | + + + + + | [facility] | [address] | [place], [place] | | | CARDIOLOGY | [address] | [address] | | + + + + + documented in this encounter Visit Diagnoses Not on filedocumented in this encounter"
--- OUTSIDE RECORDS SUMMARY | ~2020-01-30 | XMS | Encounter Summary ---
Demographics + + + | Address | [address] | | | [place] [address] | + + + | Home Phone | | + + + | Preferred Language | Unknown | + + + | Marital Status | | + + + | Latter Day Affiliation | CHR | + + + | Race | White | + + + | Ethnic Group | Not or | + + + Author + + + | Author | [facility] | + + + | Organization | [facility] | + + + | Address | Unknown | + + + | Phone | Unavailable | + + + Support + + +---------+ + | Name | Relationship | Address | Phone | + + +---------+ + | Caroline Elaine | ECON | Unknown | | + + +---------+ + Care Team Providers + +------+ + | Care Angiography Nurse Name | Role | Phone | + +------+ + | Cole Preston MD | PCP | | + +------+ + Encounter Details +--------+ + + + + | Date | Type | Department | Care Team | Description | +--------+ + + + + | 04/06/ | Hospital | Nuclear Medicine | | | | 2009 | Encounter | at [facility] [address] | | | [address] | | | | | | [place], | | | | | | [facility], | | | | | | [place] [address] | | | | | | [phone] | | | +--------+ + + + [...] + + documented as of this encounter Procedure Sanam Redding - 04/17/2010 7:32 AM PSTAssociated Order(s): ORDERS OTHER; ORDERS OTHER documented in this encou nter Plan of [...] | | LOCALIZATION SPECT | e | 2:27 PM | small intestine | procedure are in the | | ABDOMEN | | PST | | results section. | + +--------+ + + + | ORDERS OTHER | | 04/06/2010 | | Results for this | | | | 12:00 AM | | procedure are in the | | | | PST | | results section. | + +--------+ + + + documented in this encounter Results NM TUMOR LOCALIZATION SPECT ABDOMEN (04/06/2010 2:27 [...] | | | | | | Author: HYADE WEEKS, | | | | | | MDReviewer: NICOLE Lanier | | | | | | JR. OLIVA M.D. STATUS | | | | | | FINAL / Dr. 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
[~2020-01-30 18:59] MED LIST: ASPIRIN EC325 MG PO
== END 2020-01-30 23:06 | disposition home or self-care (01) ==
LOC: ED 18:59
DX: G89.18 Other acute postprocedural pain (principal); R10.11 Right upper quadrant pain; I10 Essential (primary) hypertension; Z87.891 Personal history of nicotine dependence; Z88.2 Allergy status to sulfonamides; Z88.5 Allergy status to narcotic agent; Z88.8 Allergy status to other drugs, medicaments and biological substances
CPT/HCPCS: 74177; 80053; 81001; 83690; 85025; 96375; 96376; 99284-25; J1170; J2405; J7030; Q9967

== ENCOUNTER 2025-01-26 09:48 | Emergency (ER) | payer MEDICARE ==
[~2025-01-26] VITALS: Ht 177.8 cm; Wt 92.9 kg
[~2025-01-26 09:48] MED LIST changes: +LISINOPRIL5 MG PO; +TAMSULOSIN HCL0.4 MG PO
[2025-01-26 10:05] VITALS: BP 154/104
== END 2025-01-26 10:05 | disposition home or self-care (01) ==
LOC: ED 09:48
DX: L98.8 Other specified disorders of the skin and subcutaneous tissue (principal); I10 Essential (primary) hypertension; Z87.891 Personal history of nicotine dependence; Z88.5 Allergy status to narcotic agent; Z88.2 Allergy status to sulfonamides; Z88.8 Allergy status to other drugs, medicaments and biological substances; Z79.899 Other long term (current) drug therapy
CPT/HCPCS: 99282